=== PATIENT | female | born 1945 | race Caucasian/White ===

== ENCOUNTER → 2016-09-24 | Outpatient (CLI) | payer BC, MEDICARE ==
[2016-09-24 10:33] LABS: Basophils # (A) 0.1 k/uL (0-0.2); Basophils % (A) 1 %; CH 30.6; CHCM 34.4; Eosinophils # (A) 0.1 k/uL (0-0.7); Eosinophils % (A) 2 %; HCT 44.8 % (34.0-46.0); HDW 2.76; HGB 15.3 gm/dL (11.4-16.0); Luc # (Auto) 0.24; Luc % (Auto) 4; Lymphocytes % (A) 30 %; MCH 30.5 pg (25.0-35.0); MCHC 34.1 g/dL (31.0-37.0); MCV 89.4 fL (80.0-100.0); Mean Platelet Volume 9.3; Monocytes # (A) 0.3 k/uL (0-1.0); Monocytes % (A) 4 %; Neutrophils % (A) 60 %; RBC 5.01 m/uL (3.80-5.40); RDW 12.8 % (11.5-15.5); WBC 6.8 k/uL (3.8-10.6); WBC (Perox) 6.98
[2016-09-24 10:47] LABS: ALT 29 U/L (9-52); AST 20 U/L (14-36); Alkaline Phosphatase 61 U/L (38-126); Anion Gap 9 mmol/L; Blood Urea Nitrogen 14 mg/dL (7-17); Calcium 9.5 mg/dL (8.4-10.2); Carbon Dioxide 29 mmol/L (22-30); Chloride 103 mmol/L (98-107); Cholesterol 153 mg/dL (<200); Glucose 136 mg/dL (74-99); HDL Cholesterol 42 mg/dL (40-60); Non-African American GFR(MDRD) >60 (>60 ml/min/1.73 sqM); Potassium 4.6 mmol/L (3.5-5.1); Sodium 141 mmol/L (137-145); Total Bilirubin 0.7 mg/dL (0.2-1.3); Total Protein 6.7 g/dL (6.3-8.2); Triglycerides 158 mg/dL (<150)
== END | disposition home or self-care (01) ==
LOC: LABWHC1 09:59
PROVIDERS: ATTEND Internal Medicine
DX: E11.65 Type 2 diabetes mellitus with hyperglycemia (principal); E78.2 Mixed hyperlipidemia; I10 Essential (primary) hypertension
CPT/HCPCS: 36415; 80053; 80061; 85025

== ENCOUNTER → 2016-12-17 | Outpatient (CLI) | payer MEDICARE ==
[2016-12-17 11:03] LABS: Anion Gap 9 mmol/L; Blood Urea Nitrogen 15 mg/dL (7-17); Calcium 9.2 mg/dL (8.4-10.2); Carbon Dioxide 24 mmol/L (22-30); Chloride 105 mmol/L (98-107); Glucose 151 mg/dL (74-99); Non-African American GFR(MDRD) >60 (>60 ml/min/1.73 sqM); Potassium 4.5 mmol/L (3.5-5.1); Sodium 138 mmol/L (137-145)
[2016-12-17 11:44] LABS: Hemoglobin A1C 6.9 % (4.2-6.1)
== END | disposition home or self-care (01) ==
LOC: LABWHC1 09:32
PROVIDERS: ATTEND Internal Medicine
DX: E11.65 Type 2 diabetes mellitus with hyperglycemia (principal)
CPT/HCPCS: 36415; 80048; 82043; 83036

== ENCOUNTER → 2017-04-16 | Outpatient (CLI) | payer MEDICARE ==
[2017-04-16 11:03] LABS: Anion Gap 10 mmol/L; Blood Urea Nitrogen 16 mg/dL (7-17); Calcium 9.3 mg/dL (8.4-10.2); Carbon Dioxide 23 mmol/L (22-30); Chloride 105 mmol/L (98-107); Glucose 143 mg/dL (74-99); Non-African American GFR(MDRD) >60 (>60 ml/min/1.73 sqM); Potassium 4.9 mmol/L (3.5-5.1); Sodium 138 mmol/L (137-145)
== END | disposition home or self-care (01) ==
LOC: LABWHC1 10:02
PROVIDERS: ATTEND Internal Medicine
DX: E11.9 Type 2 diabetes mellitus without complications (principal)
CPT/HCPCS: 36415; 80048; 83036

== ENCOUNTER → 2017-09-15 | Outpatient (CLI) | payer MEDICARE ==
[2017-09-15 10:10] LABS: Anion Gap 9 mmol/L; Blood Urea Nitrogen 16 mg/dL (7-17); Calcium 9.2 mg/dL (8.4-10.2); Carbon Dioxide 30 mmol/L (22-30); Chloride 102 mmol/L (98-107); Glucose 155 mg/dL (74-99); Potassium 4.4 mmol/L (3.5-5.1); Sodium 141 mmol/L (137-145)
[2017-09-15 21:08] LABS: Hemoglobin A1C 7.1 % (4.0-6.0)
== END | disposition home or self-care (01) ==
LOC: LABWHC1 09:15
PROVIDERS: ATTEND Internal Medicine
DX: E11.65 Type 2 diabetes mellitus with hyperglycemia (principal)
CPT/HCPCS: 36415; 80048; 83036

== ENCOUNTER 2021-12-22 14:30 | Observation (INO) | payer MEDICARE ==
[2021-12-22 15:00] LABS: Basophils % (A) 1 %; Eosinophils # (A) 0.1 k/uL (0-0.7); Eosinophils % (A) 1 %; HCT 42.4 % (34.0-46.0); HGB 14.2 gm/dL (11.4-16.0); Lymphocytes # (A) 1.3 k/uL (1.0-4.8); Lymphocytes % (A) 15 %; MCH 29.9 pg (25.0-35.0); MCHC 33.6 g/dL (31.0-37.0); MCV 89.1 fL (80.0-100.0); Mean Platelet Volume 8.8; Monocytes # (A) 0.4 k/uL (0-1.0); Monocytes % (A) 5 %; Neutrophils # (A) 6.6 k/uL (1.3-7.7); Neutrophils % (A) 78 %; Platelet Count 189 k/uL (150-450); RBC 4.76 m/uL (3.80-5.40); RDW 13.4 % (11.5-15.5); WBC 8.5 k/uL (3.8-10.6)
[2021-12-22 15:12] LABS: ALT 69 U/L (4-34); AST 171 U/L (14-36); African American GFR (CKD) >90 (>60 ml/min/1.73 sqM); Albumin 3.8 g/dL (3.5-5.0); Alkaline Phosphatase 84 U/L (38-126); Anion Gap 6 mmol/L; Blood Urea Nitrogen 19 mg/dL (7-17); Calcium 8.8 mg/dL (8.4-10.2); Carbon Dioxide 27 mmol/L (22-30); Chloride 104 mmol/L (98-107); Glucose 158 mg/dL (74-99); Magnesium 1.8 mg/dL (1.6-2.3); Non-African American GFR(CKD) 88 (>60 ml/min/1.73 sqM); Potassium 4.1 mmol/L (3.5-5.1); Sodium 137 mmol/L (137-145); Total Bilirubin 0.5 mg/dL (0.2-1.3); Total Protein 6.2 g/dL (6.3-8.2)
--- NOTE | 2021-12-22 15:12 | XR ---
EXAMINATION TYPE: XR chest 2V DATE OF EXAM: 12/22/2021 COMPARISON: NONE HISTORY: Chest TECHNIQUE: 2 views FINDINGS: Heart is normal. The lungs are clear of consolidation. There are no hilar masses. Thoracic aorta is atheromatous. There are chest leads. Bony thorax is intact. IMPRESSION: No active cardiopulmonary disease.
[2021-12-22 15:31] LABS: INR 0.9 (<1.2); Prothrombin Time 10.4 sec (9.0-12.0)
[2021-12-22 15:39] LABS: Lipase 5369 U/L (23-300)
--- NOTE | 2021-12-22 15:55 | ED ---
Chest Pain HPI - General Chief Complaint: Chest Pain Stated Complaint: Chest pain Time Seen by Provider: 12/22/21 14:35 Source: patient, EMS, RN notes reviewed Mode of arrival: EMS Limitations: no limitations - History of Present Illness Initial Comments: This a 76-year-old female presents emergency department with chief complaint of epigastric, chest discomfort. Patient states this started a few hours prior arrival. Patient states she became very sweaty, uncomfortable feeling. Patient states initially that it was just GI upset, reflux seemed to progress. She states she's had bouts of this in the past with this ecchymosis severe. She takes daily for dose aspirin in which she has taken today. No prior cardiac disease she does admit that she is a daily smoker him a history of hypertension, diabetes and hyperlipidemia. Patient states she is on metformin 2000 mg daily, fosinopril in which she's had recent medication increases. Patient states she is also supposed be on Lipitor. Patient denies any vomiting diarrhea constipation. Patient denies being alcohol user. Patient offers no other associated complaints. - Related Data Home Medications Medication Instructions Recorded Confirmed Aspirin 325 mg PO TID 01/20/14 01/24/14 Simvastatin [Zocor] 20 mg PO HS 01/20/14 01/24/14 metFORMIN HCL [Glucophage] 1,000 mg PO DAILY 01/20/14 01/24/14 Allergies Allergy/AdvReac Type Severity Reaction Status Date / Time procaine HCl [From Novocain] Allergy Severe Anaphylaxis Verified 01/20/14 09:41 pseudoephedrine HCl Allergy Severe Rapid Verified 01/20/14 09:41 [From Sudafed] Heart Rate Review of Systems ROS Statement: Those systems with pertinent positive or pertinent negative responses have been documented in the HPI. ROS Other: All systems not noted in ROS Statement are negative. EKG Findings - EKG Comments: EKG Findings:: EKG performed at 14:14 sinus rhythm with 81 W[place] 180 QRS 77 QT/QTC 359/397 Past Medical History Past Medical History: Diabetes Mellitus, Hyperlipidemia, Skin Disorder Additional Past Medical History / Comment(s): arthritis, chronic cough, keratosis, fuch dystrophy rt eye History of Any Multi-Drug Resistant Organisms: None Reported Past Surgical History: Tonsillectomy Additional Past Surgical History / Comment(s): cold knife conization Past Anesthesia/Blood Transfusion Reactions: Family History of Problems w/ Anesthesia Additional Past Anesthesia/Blood Transfusion Reaction / Comment(s): woke up in dentist office in "trendelenburg position", allergy reaction to novocaine and all the "rochelle" local anesthesia Past Psychological History: No Psychological Hx Reported Smoking Status: Current every day smoker Past Alcohol Use History: None Reported Past Drug Use History: None Reported - Past Family History Father Family Medical History: Cancer Sister(s) Family Medical History: Cancer General Exam Limitations: no limitations General appearance: alert, in no apparent distress Head exam: Present: atraumatic, normocephalic, normal inspection Eye exam: Present: normal appearance, PERRL, EOMI. Absent: scleral icterus, conjunctival injection, periorbital swelling ENT exam: Present: normal exam, normal oropharynx, mucous membranes moist Neck exam: Present: normal inspection, full ROM. Absent: tenderness, meningismus, lymphadenopathy Respiratory exam: Present: normal lung sounds bilaterally. Absent: respiratory distress, wheezes, rales, rhonchi, stridor Cardiovascular Exam: Present: regular rate, normal rhythm, normal heart sounds. Absent: systolic murmur, diastolic murmur, rubs, gallop, clicks GI/Abdominal exam: Present: soft, tenderness (Mild epigastric), normal bowel sounds. Absent: distended, guarding, rebound, rigid Back exam: Absent: CVA tenderness (R), CVA tenderness (L) Neurological exam: Present: alert Skin exam: Present: warm, dry, intact, normal color. Absent: rash Course Vital Signs 12/22/21 12/22/21 14:35 14:46 Temperature 98.1 F Pulse Rate 85 Pulse Rate [ 83 Guardian Ad Litem ] Respiratory 16 Rate Blood Pressure 163/81 O2 Sat by Pulse 96 Oximetry Chest Pain [facility] 68-year-old female presented for epigastric chest pain. Patient's initial workup reveals evidence of acute pancreatitis with elevated lipase over 5000. CT was obtained as patient has no history of pancreatitis is not alcohol abuser. CT does not show any evidence of pancreatitis, possibly mildly thickened gallbladder wall. Patient will be obtained. Patient will be admitted for acute pancreatitis any fluid hydration, pain control and further evaluation. Disposition Clinical Impression: Acute pancreatitis, Chest pain Disposition: ADMITTED IP TO THIS HOSP Condition: Fair Referrals: Hector Hastings MD [Primary Care Provider] - 1-2 days Time of Disposition: 16:21
--- NOTE | 2021-12-22 16:17 | CT ---
EXAMINATION TYPE: CT abdomen pelvis wo con DATE OF EXAM: 12/22/2021 COMPARISON: None HISTORY: epigastric pain. poss pancreatitis CT DLP: 485.9 mGycm Automated exposure control for dose reduction was used. Images obtained from the diaphragm to the floor the pelvis with no contrast. The lung bases are clear. No pleural effusion. Heart size is normal. No pericardial effusion. Liver spleen stomach pancreas appear intact. There is gallbladder wall thickening. Gallbladder somewh at contracted. The bile ducts are not dilated. There is no adrenal mass. Kidneys have fairly normal size. No hydronephrosis. Ureters are not dilated . There is no retroperitoneal adenopathy. Bladder distends smoothly. There is no inguinal hernia. There is no mesenteric edema. No ascites or free air. No sign of a bowel obstruction. Abdominal aorta measures up to 2.8 cm. Lumbar vertebra abnormal alignment. Disc spaces are fairly nor mal. No compression fracture. Bony pelvis is intact. The hip joints are intact. Sacroiliac joints are intact. IMPRESSION: Atherosclerotic vascular disease. Contracted gallbladder with mild wall thickening that could be chol ecystitis. No dilated ducts. No definite evidence of pancreatitis.
[2021-12-22] MEDS ORDERED: NITROGLYCERIN SL TABS 0.4 MG TAB SUBLINGUAL PRN (16:23)
[2021-12-22] MEDS ORDERED: HYDROmorphone 0.5 MG/0.5 ML SYRINGE IVP PRN (16:26)
[2021-12-22] MEDS ORDERED: ONDANSETRON 4 MG/2 ML VIAL IVP PRN (16:26)
--- NOTE | 2021-12-22 17:12 | P.HPIM ---
History of Present Illness H&P Date: 12/22/21 76-year-old female presents emergency department with chief complaint of epigastric, chest discomfort. Patient states this started a few hours prior arrival. Patient states she became very sweaty, uncomfortable feeling. Patient states initially that it was just GI upset, reflux seemed to progress. She states she's had bouts of this in the past with this ecchymosis severe. She takes daily for dose aspirin in which she has taken today. No prior cardiac disease she does admit that she is a daily smoker him a history of hypertension, diabetes and hyperlipidemia. Patient states she is on metformin 2000 mg daily, fosinopril in which she's had recent medication increases. Patient states she is also supposed be on Lipitor. Patient denies any vomiting diarrhea constipation. Patient denies being alcohol user. Patient offers no other associated complaints. Patient's initial workup reveals evidence of acute pancreatitis with elevated lipase over 5000. CT was obtained as patient has no history of pancreatitis is not alcohol abuser. CT does not show any evidence of pancreatitis, possibly mildly thickened gallbladder wall. atient will be admitted for acute pancreatitis any fluid hydration, pain control and further evaluation. Acute pancreatitis unclear etiology Gallbladder ultrasound negative patient denies any history of alcohol intake We'll check fasting lipid panel, rule out hypertriglyceridemia Check COVID-19 swab Continue bowel rest with nothing by mouth IV fluid pain management and supportive care with antirheumatic medication Gastroenterology consulted for evaluation Chest pain likely atypical in the setting of above Doubt cardiac etiology Continue to trend troponin We'll check echocardiogram Continue cardiac telemetry Hypertension Uncontrolled, patient does not take any antihypertensive medication at home Currently when necessary hydralazine on discharge patient can be discharged on s cheduled medication Diabetes mellitus Check hemoglobin A1c Hold oral hypoglycemic Continue insulin sliding scale Hyperlipidemia Patient at home on Zocor 5 check fasting lipid panel History of smoking Smoking cessation advice, counseling DVT prophylaxis subcut heparin CODE STATUS: Full code Discharge plan: Back to home versus rehab pending hospital course and clinical improvement Review of Systems 14 point review of system was done in detail and is negative except as above in HPI. Past Medical History Past Medical History: Diabetes Mellitus, Hyperlipidemia, Skin Disorder Additional Past Medical History / Comment(s): arthritis, chronic cough, keratosis, fuch dystrophy rt eye History of Any Multi-Drug Resistant Organisms: None Reported Past Surgical History: Tonsillectomy Additional Past Surgical History / Comment(s): cold knife conization Past Anesthesia/Blood Transfusion Reactions: Family History of Problems w/ Anesthesia Additional Past Anesthesia/Blood Transfusion Reaction / Comment(s): woke up in dentist office in "trendelenburg position", allergy reaction to novocaine and all the "rochelle" local anesthesia Past Psychological History: No Psychological Hx Reported Smoking Status: Current every day smoker Past Alcohol Use History: None Reported Past Drug Use History: None Reported - Past Family History Father Family Medical History: Cancer Sister(s) Family Medical History: Cancer Medications and Allergies Home Medications Medication Instructions Recorded Confirmed Type Aspirin 325 mg PO TID 01/20/14 01/24/14 History Simvastatin [Zocor] 20 mg PO HS 01/20/14 01/24/14 History metFORMIN HCL [Glucophage] 1,000 mg PO DAILY 01/20/14 01/24/14 History Allergies Allergy/AdvReac Type Severity Reaction Status Date / Time procaine HCl [From Novocain] Allergy Severe Anaphylaxis Verified 01/20/14 09:41 pseudoephedrine HCl Allergy Severe Rapid Verified 01/20/14 09:41 [From Sudafed] Heart Rate Physical Exam Vitals: Vital Signs Temp Pulse Pulse Resp BP Pulse Ox 12/22/21 14:46 83 12/22/21 14:35 98.1 F 85 16 163/81 96 Intake and Output 12/22/21 12/22/21 12/22/21 06:59 14:59 22:59 Other: Weight 68.946 kg General: non toxic, no acute distress, alert oriented to time place and person Head: atraumatic, normocephalic, symmetric Eyes: no lid lesion], anicteric sclera Mouth: no lip lesion, mucus membranes moist Cardiovascular: S1S2 reg rate and rhythm, no murmur, no gallop Lungs: Bilateral equal air entry, no wheezing no rhonchi no crackles. Abdominal: soft, nontender to palpation, no guarding, no appreciable organomegaly Ext: no gross muscle atrophy, no edema extremities warm to suppose a positive Neuro: Alert oriented to time place and person, exam grossly nonfocal Psych: Mood and affect appropriate, patient not so certain Skin exam: No rashes no jaundice. Results CBC & Chem 7: 12/22/21 14:50 12/22/21 14:50 Labs: Abnormal Lab Results - Last 24 Hours (Table) 12/22/21 Range/Units 14:50 BUN 19 H (7-17) mg/dL Glucose 158 H (74-99) mg/dL AST 171 H (14-36) U/L ALT 69 H (4-34) U/L Total Protein 6.2 L (6.3-8.2) g/dL Lipase 5369 H (23-300) U/L
--- NOTE | 2021-12-22 17:25 | US ---
EXAMINATION TYPE: US gallbladder DATE OF EXAM: 12/22/2021 COMPARISON: NONE CLINICAL HISTORY: pain. chest pain, possible pancreatitis, contracted GB on CT EXAM MEASUREMENTS: Liver Length: 16.9 cm Gallbladder Wall: 0.4 cm CBD: 0.6 cm Right Kidney: 10.7 x 4.6 x 4.4 cm Pancreas: wnl Liver: wnl Gallbladder: thickened wall and appears contracted, NPO 4.5 hours Evidence for sonographic Barton's sign: no CBD: wnl Right Kidney: wnl IMPRESSION: No gallstones. Mild gallbladder wall thickening could be minimal cholecystitis. No dilate d ducts.
[2021-12-22] MEDS ORDERED: cefTRIAXone IN SWFI 1,000 MG/10 ML SYRINGE IVP STA (18:46)
[2021-12-22] MEDS ORDERED: ACETAMINOPHEN TAB 500 MG TAB PO STA (18:46)
[2021-12-22 19:07] LABS: Glucose,Whole Blood 136 mg/dL (75-99)
[2021-12-22] MEDS: SODIUM CHLORIDE 0.9% 1,000 ML IV SCH (19:22)
[2021-12-22 20:36] LABS: Appearance,Urine Clear (Clear); Bilirubin,Urine Negative (Negative); Blood,Urine Negative (Negative); Color,Urine Light Yellow; Glucose,Urine (UA) Negative (Negative); Ketones,Urine Negative (Negative); Leukocyte Esterase,Urine Negative (Negative); Nitrite,Urine Negative (Negative); PH, Urine 5.5 (5.0-8.0); Protein,Urine Negative (Negative); Specific Gravity,Urine 1.007 (1.001-1.035); Urobilinogen,Urine <2.0 mg/dL (<2.0)
[2021-12-22] MEDS: PIPERACILLIN-TAZOBACTAM 3.375 GM in SODIUM CHLORIDE 0.9% 100 ML IVPB SCH (20:57)
[2021-12-22] MEDS ORDERED: SODIUM CHLORIDE 0.9% 1,000 ML IV ONE (20:58)
[2021-12-23 05:07] LABS: Basophils % (A) 0 %; Eosinophils % (A) 0 %; HCT 36.9 % (34.0-46.0); HGB 12.1 gm/dL (11.4-16.0); Lymphocytes # (A) 0.5 k/uL (1.0-4.8); Lymphocytes % (A) 4 %; MCH 29.2 pg (25.0-35.0); MCHC 32.7 g/dL (31.0-37.0); MCV 89.2 fL (80.0-100.0); Mean Platelet Volume 8.9; Monocytes # (A) 0.3 k/uL (0-1.0); Monocytes % (A) 2 %; Neutrophils # (A) 11.9 k/uL (1.3-7.7); Neutrophils % (A) 93 %; Platelet Count 161 k/uL (150-450); RBC 4.14 m/uL (3.80-5.40); RDW 13.6 % (11.5-15.5); WBC 12.8 k/uL (3.8-10.6)
[2021-12-23] MEDS: PIPERACILLIN-TAZOBACTAM 3.375 GM in SODIUM CHLORIDE 0.9% 100 ML IVPB SCH ×3 (05:25→20:22)
[2021-12-23 05:47] LABS: ALT 329 U/L (4-34); AST 367 U/L (14-36); African American GFR (CKD) >90 (>60 ml/min/1.73 sqM); Albumin 2.8 g/dL (3.5-5.0); Alkaline Phosphatase 72 U/L (38-126); Anion Gap 4 mmol/L; Blood Urea Nitrogen 15 mg/dL (7-17); Calcium 7.7 mg/dL (8.4-10.2); Carbon Dioxide 23 mmol/L (22-30); Chloride 107 mmol/L (98-107); Glucose 155 mg/dL (74-99); Non-African American GFR(CKD) 81 (>60 ml/min/1.73 sqM); Potassium 3.4 mmol/L (3.5-5.1); Sodium 134 mmol/L (137-145); Total Bilirubin 1.2 mg/dL (0.2-1.3); Total Protein 4.8 g/dL (6.3-8.2)
[2021-12-23 10:59] LABS: Chol/HDL Ratio 4.74 Ratio; LDL Cholesterol,Calculated 123.7 mg/dL (0.0-131.0); VLDL Calculation 18.34 mg/dL (5.00-40.00)
--- NOTE | 2021-12-23 12:30 | P.PN ---
Subjective Patient was examined at bedside not complaining of any new symptomatology. States that her abdominal pain is slightly improved denies any nausea or vomiting. Family present at bedside all questions have been answered. Patient denies any chest pain, shortness of breath or palpitations. Objective - Vital Signs Vital signs: Vital Signs Temp 98.1 F 12/23/21 01:00 Pulse 80 12/23/21 09:23 Resp 18 12/23/21 09:23 BP 103/56 12/23/21 09:23 Pulse Ox 94 L 12/23/21 09:23 FiO2 Intake & Output 12/22/21 12/23/21 12/23/21 18:59 06:59 18:59 Weight 68.946 kg 68.946 kg - Exam General: non toxic, no acute distress, alert oriented to time place and person Head: atraumatic, normocephalic, symmetric Eyes: no lid lesion], anicteric sclera Mouth: no lip lesion, mucus membranes moist Cardiovascular: S1S2 reg rate and rhythm, no murmur, no gallop Lungs: Bilateral equal air entry, no wheezing no rhonchi no crackles. Abdominal: soft, nontender to palpation, no guarding, no appreciable organomegaly Ext: no gross muscle atrophy, no edema extremities warm to suppose a positive Neuro: Alert oriented to time place and person, exam grossly nonfocal Psych: Mood and affect appropriate, patient not so certain Skin exam: No rashes no jaundice. - Labs CBC & Chem 7: 12/23/21 04:32 12/23/21 04:32 Labs: Abnormal Lab Results - Last 24 Hours (Table) 12/22/21 12/22/21 12/22/21 Range/Units 14:50 14:50 19:05 WBC (3.8-10.6) k/uL Neutrophils # (1.3-7.7) k/uL Lymphocytes # (1.0-4.8) k/uL Sodium (137-145) mmol/L Potassium (3.5-5.1) mmol/L BUN 19 H (7-17) mg/dL Glucose 158 H (74-99) mg/dL POC Glucose (mg/dL) 136 H (75-99) mg/dL Hemoglobin A1c 7.4 H (0.0-6.0) % Plasma Lactic Acid Bradley (0.7-2.0) mmol/L Calcium (8.4-10.2) mg/dL AST 171 H (14-36) U/L ALT 69 H (4-34) U/L Total Protein 6.2 L (6.3-8.2) g/dL Albumin (3.5-5.0) g/dL HDL Cholesterol (40.00-60.00) mg/dL Lipase 5369 H (23-300) U/L 12/22/21 12/23/21 12/23/21 Range/Units 20:08 04:32 04:32 WBC 12.8 H (3.8-10.6) k/uL Neutrophils # 11.9 H (1.3-7.7) k/uL Lymphocytes # 0.5 L (1.0-4.8) k/uL Sodium 134 L (137-145) mmol/L Potassium 3.4 L (3.5-5.1) mmol/L BUN (7-17) mg/dL Glucose 155 H (74-99) mg/dL POC Glucose (mg/dL) (75-99) mg/dL Hemoglobin A1c (0.0-6.0) % Plasma Lactic Acid Bradley 3.3 H* (0.7-2.0) mmol/L Calcium 7.7 L (8.4-10.2) mg/dL AST 367 H (14-36) U/L ALT 329 H (4-34) U/L Total Protein 4.8 L (6.3-8.2) g/dL Albumin 2.8 L (3.5-5.0) g/dL HDL Cholesterol 38.00 L (40.00-60.00) mg/dL Lipase (23-300) U/L Assessment and Plan Assessment: Acute pancreatitis unclear etiology Gallbladder ultrasound negative patient denies any history of alcohol intake Reviewed lipid panel, Check COVID-19 swab Continue bowel rest with nothing by mouth IV fluid pain management and supportive care with antirheumatic medication Gastroenterology consulted for evaluation IV hydration Chest pain likely atypical in the setting of above Doubt cardiac etiology Continue to trend troponin We'll check echocardiogram Continue cardiac telemetry Hypertension Uncontrolled, patient does not take any antihypertensive medication at home Currently when necessary hydralazine on discharge patient can be discharged on scheduled medication Diabetes mellitus Check hemoglobin A1c - 7.4 Hold oral hypoglycemic Continue insulin sliding scale Hyperlipidemia Patient at home on Zocor History of smoking Smoking cessation advice, counseling DVT prophylaxis subcut heparin CODE STATUS: Full code Discharge plan: Back to home versus rehab pending hospital course and clinical improvement
[2021-12-23 12:51] LABS: Glucose,Whole Blood 123 mg/dL (75-99)
[2021-12-23] MEDS: SODIUM CHLORIDE 0.9% 1,000 ML IV SCH ×6 (12:54→21:09)
--- NOTE | 2021-12-23 16:02 | P.CONS ---
History of Present Illness - Reason for Consult Consult date: 12/23/21 Pancreatitis Requesting physician: Jono Carpenter - Chief Complaint Chest pain - History of Present Illness This is a pleasant 76-year-old female who presented to the emergency department by EMS with complaints of chest pain. States that she began having chest pain yesterday afternoon, lasting about 30 minutes. Her family called EMS and they brought her to the emergency department. She has a past medical history diabetes mellitus, hypertension, hyperlipidemia and arthritis. She was noted to have elevated AST and ALTs as well as lipase on admission. She underwent CT of the abdomen and pelvis that reported a contracted gallbladder with mild wall thickening could be cholecystitis. With no dilated ducts and no definite evidence of pancreatitis. Abdominal ultrasound also obtained with findings of no gallstones. Mild gallbladder wall thickening could be minimal cholecystitis. With no dilated ducts. Gastroenterology was consulted for acute pancreatitis. Patient denies any abdominal pain at this time. No chest pain or epigastric pain. She denies any previous history of pancreatitis. Denies any history of alcoholism or problems with her gallbladder. No recent new medications. Admitting labs WBC 8.5 hemoglobin 14 platelet count 189,000 sodium 137 potassium 4.1 BUN 19 creatinine 0.6, total bilirubin 0.5 AST 171 AST 69, lipase 5369 Review of Systems REVIEW OF SYSTEMS: CARDIOPULMONARY: No chest pain or shortness of breath. Gastrointestinal: Epigastric pain, now resolved. No nausea or vomiting. No hematemesis, coffee-ground emesis. No rectal bleeding, or melena. GENITOURINARY: No dysuria or hematuria. MUSCULOSKELETAL: Reports normal range of motion., Joint pain. SKIN: No rashes. No jaundice. ENDOCRINE: No chills, fevers. No excessive weight gain or loss. No polydipsia or polyuria. PSYCHIATRIC: Unremarkable. NEUROLOGY: No change in mental status. Denies dizziness, headache. ENT: Vision unremarkable. CONSTITUTIONAL: No recent weight loss. No fever, chills, night sweats. Past Medical History Past Medical History: Diabetes Mellitus, Hyperlipidemia, Skin Disorder Additional Past Medical History / Comment(s): arthritis, chronic cough, keratosis, fuch dystrophy rt eye History of Any Multi-Drug Resistant Organisms: None Reported Past Surgical History: Tonsillectomy Additional Past Surgical History / Comment(s): cold knife conization Past Anesthesia/Blood Transfusion Reactions: Family History of Problems w/ Anesthesia Additional Past Anesthesia/Blood Transfusion Reaction / Comm: woke up in dentist office in "trendelenburg position", allergy reaction to novocaine and all the "rochelle" local anesthesia Past Psychological History: No Psychological Hx Reported Smoking Status: Current every day smoker Past Alcohol Use History: None Reported Past Drug Use History: None Reported - Past Family History Father Family Medical History: Cancer Sister(s) Family Medical History: Cancer Medications and Allergies Home Medications Medication Instructions Recorded Confirmed Type Aspirin 325 mg PO DAILY 01/20/14 12/23/21 History metFORMIN HCL [Glucophage] 1,000 mg PO BID 01/20/14 12/23/21 History Atorvastatin Calcium [Lipitor] 40 mg PO HS 12/23/21 12/23/21 History Cholecalciferol (Vitamin D3) 75 mcg PO DAILY 12/23/21 12/23/21 History [Vitamin D3 (3000 Iu)] Multivitamins, Thera [Multivitamin 1 tab PO DAILY 12/23/21 12/23/21 History (formulary)] lisinopriL [Zestril] 10 mg PO BID 12/23/21 12/23/21 History Allergies Allergy/AdvReac Type Severity Reaction Status Date / Time procaine HCl [From Novocain] Allergy Severe Anaphylaxis Verified 12/23/21 07:39 pseudoephedrine HCl AdvReac Severe Rapid Verified 12/23/21 07:39 [From Sudafed] Heart Rate Physical Exam Vitals: Vital Signs Temp Pulse Pulse Resp BP Pulse Ox 12/23/21 09:23 80 18 103/56 94 L 12/23/21 04:00 92 97 12/23/21 03:00 92 93/50 97 12/23/21 01:00 98.1 F 92 90/51 97 12/22/21 22:52 99.8 F H 102 H 16 142/76 96 12/22/21 21:43 99.0 F 12/22/21 21:24 100.9 F H 12/22/21 20:24 102.1 F H 110 H 16 135/50 97 12/22/21 19:52 101.0 F H 120 H 16 139/60 97 12/22/21 18:38 100.9 F H 130 H 18 172/91 12/22/21 14:46 83 12/22/21 14:35 98.1 F 85 16 163/81 96 General appearance: The patient is alert, oriented, appears in no acute distress. HET: Head is normocephalic and atraumatic. Conjunctiva pink. Sclera anicteric. Neck: Supple without lymphadenopathy. Trachea midline. Heart: S1 S2. Regular rate and rhythm. Lungs: Clear to auscultation. Abdomen: Soft, mild right upper quadrant tenderness, nondistended with bowel sounds. No guarding or rigidity. Skin: No rashes. No jaundice. Extremities: Normal skin color and turgor. No pedal edema. Neurological: No focal deficits. Alert and oriented x3. Results CBC & Chem 7: 12/23/21 04:32 12/23/21 04:32 Labs: Abnormal Lab Results - Last 24 Hours (Table) 12/22/21 12/22/21 12/22/21 Range/Units 14:50 14:50 19:05 WBC (3.8-10.6) k/uL Neutrophils # (1.3-7.7) k/uL Lymphocytes # (1.0-4.8) k/uL Sodium (137-145) mmol/L Potassium (3.5-5.1) mmol/L BUN 19 H (7-17) mg/dL Glucose 158 H (74-99) mg/dL POC Glucose (mg/dL) 136 H (75-99) mg/dL Hemoglobin A1c 7.4 H (0.0-6.0) % Plasma Lactic Acid Bradley (0.7-2.0) mmol/L Calcium (8.4-10.2) mg/dL AST 171 H (14-36) U/L ALT 69 H (4-34) U/L Total Protein 6.2 L (6.3-8.2) g/dL Albumin (3.5-5.0) g/dL Lipase 5369 H (23-300) U/L 12/22/21 12/23/21 12/23/21 Range/Units 20:08 04:32 04:32 WBC 12.8 H (3.8-10.6) k/uL Neutrophils # 11.9 H (1.3-7.7) k/uL Lymphocytes # 0.5 L (1.0-4.8) k/uL Sodium 134 L (137-145) mmol/L Potassium 3.4 L (3.5-5.1) mmol/L BUN (7-17) mg/dL Glucose 155 H (74-99) mg/dL POC Glucose (mg/dL) (75-99) mg/dL Hemoglobin A1c (0.0-6.0) % Plasma Lactic Acid Bradley 3.3 H* (0.7-2.0) mmol/L Calcium 7.7 L (8.4-10.2) mg/dL AST 367 H (14-36) U/L ALT 329 H (4-34) U/L Total Protein 4.8 L (6.3-8.2) g/dL Albumin 2.8 L (3.5-5.0) g/dL Lipase (23-300) U/L Comments: CT of the abdomen and pelvis that reported a contracted gallbladder with mild wall thickening could be cholecystitis. With no dilated ducts and no definite evidence of pancreatitis. Gallbladder ultrasound also obtained with findings of no gallstones. Mild gallbladder wall thickening could be minimal cholecystitis. With no dilated ducts. Assessment and Plan (1) Acute pancreatitis Narrative/Plan: 76-year-old female with no prior history of gallbladder disease or pancreatitis comes in to the emergency department with complaints of chest pain/epigastric pain. She was noted to have elevated lipase as well as AST and ALTs. CT of the abdomen and pelvis show no gallstones, no evidence of pancreatitis, however gallbladder wall thickening possible cholecystitis. Repeat labs today showed an elevation in her WBC to 12.8, AST increased from 171-367, ALTs from 69-329, Total bilirubin 1.2, lipase improved from 5369 to 238. Patient denies any p revious history of liver disease, no history of alcohol use. Unclear etiology at this time, a CT of abdomen and pelvis as well as gallbladder ultrasound suggesting mild thickening of the gallbladder, possible cholecystitis. Gen. surgery consulted. Current Visit: Yes Status: Acute Code(s): K85.90 - ACUTE PANCREATITIS W ITHOUT NECROSIS OR INFECTION, UNSP SNOMED Code(s): 784004688 Plan: 1. Continue symptomatic and supportive care 2. Patient may have clear liquid diet, consistent carbohydrate 3. Repeat CBC, CMP in the morning 4. Gen. surgery consulted for possible cholecystitis, patient requesting Dr. Browne 5. Further recommendations forthcoming based on clinical course Thank you for this consultation, we will continue to follow. Dr. Sander Hall I agree with the dictator's note, documented as a scribe by Yolanda Cyr.
--- NOTE | 2021-12-23 16:05 | P.GSCN ---
History of Present Illness Consult date: 12/23/21 Reason for Consult: Pancreatitis History of present illness: 76-year-old female came to the hospital with acute onset chest pain yesterday. This was nonradiating. Patient was concerned it was a cardiac event. Patient used to work at the hospital. Patient says she has had mild symptoms like this in the past. Pain resolved after admission however patient did have episodes last night of fevers, diaphoresis, tachypnea, and mental status changes. Labs from yesterday and today demonstrate pancreatitis that seems to have improved from a biochemical standpoint. Liver enzymes were elevated yesterday and are slightly increased again today. CAT scan reviewed which shows a contracted gallbladder with gallbladder wall thickening. Ultrasound and CAT scan did not demonstrate gallstones. On the CAT scan there is a calcification in the medial aspect of the duodenal wall that could represent choledocholithiasis. GI is already evaluated this patient. No prior surgeries. No weight loss. Some fatigue over the last 4-6 weeks however. Patient states she has not noticed any color changes to her urine skin or stool. Review of Systems The patient denies any acute changes in vision or hearing, no dysphagia or odynophagia, no chest pain or shortness of breath, no dysuria or hematuria, no headache, no runny nose, no rectal bleeding or melena, no unexplained weight loss Past Medical History Past Medical History: Diabetes Mellitus, Hyperlipidemia, Skin Disorder Additional Past Medical History / Comment(s): arthritis, chronic cough, keratos is, fuch dystrophy rt eye History of Any Multi-Drug Resistant Organisms: None Reported Past Surgical History: Tonsillectomy Additional Past Surgical History / Comment(s): cold knife conization Past Anesthesia/Blood Transfusion Reactions: Family History of Problems w/ Anesthesia Additional Past Anesthesia/Blood Transfusion Reaction / Comm: woke up in dentist office in "trendelenburg position", allergy reaction to novocaine and all the "rochelle" local anesthesia Past Psychological History: No Psychological Hx Reported Smoking Status: Current every day smoker Past Alcohol Use History: None Reported Past Drug Use History: None Reported - Past Family History Father Family Medical History: Cancer Sister(s) Family Medical History: Cancer Medications and Allergies Home Medications Medication Instructions Recorded Confirmed Type Aspirin 325 mg PO DAILY 01/20/14 12/23/21 History metFORMIN HCL [Glucophage] 1,000 mg PO BID 01/20/14 12/23/21 History Atorvastatin Calcium [Lipitor] 40 mg PO HS 12/23/21 12/23/21 History Cholecalciferol (Vitamin D3) 75 mcg PO DAILY 12/23/21 12/23/21 History [Vitamin D3 (3000 Iu)] Multivitamins, Thera [Multivitamin 1 tab PO DAILY 12/23/21 12/23/21 History (formulary)] lisinopriL [Zestril] 10 mg PO BID 12/23/21 12/23/21 History Allergies Allergy/AdvReac Type Severity Reaction Status Date / Time procaine HCl [From Novocain] Allergy Severe Anaphylaxis Verified 12/23/21 07:39 pseudoephedrine HCl AdvReac Severe Rapid Verified 12/23/21 07:39 [From Sudafed] Heart Rate Surgical - Exam Vital Signs Temp Pulse Resp BP Pulse Ox 98.1 F 85 16 163/81 96 12/22/21 14:35 12/22/21 14:35 12/22/21 14:35 12/22/21 14:35 12/22/21 14:35 Physical exam: General: Well-developed, well-nourished HEENT: Normocephalic, sclerae nonicteric Abdomen: Nontender, nondistended Extremities: No edema Neuro: Alert and oriented Results - Labs 12/23/21 04:32 12/23/21 04:32 Abnormal Lab Results - Last 24 Hours (Table) 12/22/21 12/22/21 12/22/21 Range/Units 14:50 19:05 20:08 WBC (3.8-10.6) k/uL Neutrophils # (1.3-7.7) k/uL Lymphocytes # (1.0-4.8) k/uL Sodium (137-145) mmol/L Potassium (3.5-5.1) mmol/L Glucose (74-99) mg/dL POC Glucose (mg/dL) 136 H (75-99) mg/dL Hemoglobin A1c 7.4 H (0.0-6.0) % Plasma Lactic Acid Bradley 3.3 H* (0.7-2.0) mmol/L Calcium (8.4-10.2) mg/dL AST (14-36) U/L ALT (4-34) U/L Total Protein (6.3-8.2) g/dL Albumin (3.5-5.0) g/dL HDL Cholesterol (40.00-60.00) mg/dL 12/23/21 12/23/21 12/23/21 Range/Units 04:32 04:32 12:49 WBC 12.8 H (3.8-10.6) k/uL Neutrophils # 11.9 H (1.3-7.7) k/uL Lymphocytes # 0.5 L (1.0-4.8) k/uL Sodium 134 L (137-145) mmol/L Potassium 3.4 L (3.5-5.1) mmol/L Glucose 155 H (74-99) mg/dL POC Glucose (mg/dL) 123 H (75-99) mg/dL Hemoglobin A1c (0.0-6.0) % Plasma Lactic Acid Bradley (0.7-2.0) mmol/L Calcium 7.7 L (8.4-10.2) mg/dL AST 367 H (14-36) U/L ALT 329 H (4-34) U/L Total Protein 4.8 L (6.3-8.2) g/dL Albumin 2.8 L (3.5-5.0) g/dL HDL Cholesterol 38.00 L (40.00-60.00) mg/dL Diabetes panel 12/22/21 12/23/21 Range/Units 14:50 04:32 Sodium 134 L (137-145) mmol/L Potassium 3.4 L (3.5-5.1) mmol/L Chloride 107 (98-107) mmol/L Carbon Dioxide 23 (22-30) mmol/L BUN 15 (7-17) mg/dL Creatinine 0.72 (0.52-1.04) mg/dL Glucose 155 H (74-99) mg/dL Hemoglobin A1c 7.4 H (0.0-6.0) % Calcium 7.7 L (8.4-10.2) mg/dL AST 367 H (14-36) U/L ALT 329 H (4-34) U/L Alkaline Phosphatase 72 (38-126) U/L Total Protein 4.8 L (6.3-8.2) g/dL Albumin 2.8 L (3.5-5.0) g/dL Triglycerides 91.70 (0.00-149.00) mg/dL HDL Cholesterol 38.00 L (40.00-60.00) mg/dL Calcium panel 12/23/21 Range/Units 04:32 Calcium 7.7 L (8.4-10.2) mg/dL Albumin 2.8 L (3.5-5.0) g/dL Pituitary panel 12/23/21 Range/Units 04:32 Sodium 134 L (137-145) mmol/L Potassium 3.4 L (3.5-5.1) mmol/L Chloride 107 (98-107) mmol/L Carbon Dioxide 23 (22-30) mmol/L BUN 15 (7-17) mg/dL Creatinine 0.72 (0.52-1.04) mg/dL Glucose 155 H (74-99) mg/dL Calcium 7.7 L (8.4-10.2) mg/dL Adrenal panel 12/23/21 Range/Units 04:32 Sodium 134 L (137-145) mmol/L Potassium 3.4 L (3.5-5.1) mmol/L Chloride 107 (98-107) mmol/L Carbon Dioxide 23 (22-30) mmol/L BUN 15 (7-17) mg/dL Creatinine 0.72 (0.52-1.04) mg/dL Glucose 155 H (74-99) mg/dL Calcium 7.7 L (8.4-10.2) mg/dL Total Bilirubin 1.2 (0.2-1.3) mg/dL AST 367 H (14-36) U/L ALT 329 H (4-34) U/L Alkaline Phosphatase 72 (38-126) U/L Total Protein 4.8 L (6.3-8.2) g/dL Albumin 2.8 L (3.5-5.0) g/dL Assessment and Plan (1) Acute pancreatitis Narrative/Plan: 76-year-old female with pancreatitis. Patient's liver enzymes also elevated and gallbladder wall thickening noted raising the suspicion for choledocholithiasis as the etiology. Patient's fevers, chills, mental status changes last night raise possibility of ascending cholangitis. Patient doing better on IV antibiotics. We'll order an MRCP at this time to better evaluate the patient's gallbladder and biliary tree. Patient may require cholecystectomy either later during this hospitalization or as an outpatient. We'll follow with you. Continue antibiotics. Current Visit: Yes Status: Acute Code(s): K85.90 - ACUTE PANCREATITIS WITHOUT NECROSIS OR INFECTION, UNSP SNOMED Code(s): 962369570
[2021-12-23 16:08] LABS: Glucose,Whole Blood 106 mg/dL (75-99)
[2021-12-23] MEDS: HEPARIN SODIUM,PORCINE/PF 5,000 UNIT/0.5 ML SYRINGE SQ SCH ×2 (16:59→23:50)
[2021-12-23 20:14] LABS: Glucose,Whole Blood 136 mg/dL (75-99)
[2021-12-24] MEDS: SODIUM CHLORIDE 0.9% 1,000 ML IV SCH ×6 (02:31→20:23)
[2021-12-24] MEDS: PIPERACILLIN-TAZOBACTAM 3.375 GM in SODIUM CHLORIDE 0.9% 100 ML IVPB SCH ×3 (04:11→20:22)
[2021-12-24 06:25] LABS: Glucose,Whole Blood 133 mg/dL (75-99)
[2021-12-24 07:51] LABS: HCT 37.5 % (34.0-46.0); HGB 12.2 gm/dL (11.4-16.0); MCH 29.2 pg (25.0-35.0); MCHC 32.4 g/dL (31.0-37.0); Mean Platelet Volume 9.6; Platelet Count 132 k/uL (150-450); RBC 4.17 m/uL (3.80-5.40); RDW 13.1 % (11.5-15.5); WBC 9.9 k/uL (3.8-10.6)
[2021-12-24 08:04] LABS: ALT 292 U/L (4-34); AST 180 U/L (14-36); African American GFR (CKD) >90 (>60 ml/min/1.73 sqM); Albumin 3.2 g/dL (3.5-5.0); Alkaline Phosphatase 81 U/L (38-126); Anion Gap 7 mmol/L; Blood Urea Nitrogen 8 mg/dL (7-17); Calcium 8.1 mg/dL (8.4-10.2); Carbon Dioxide 23 mmol/L (22-30); Chloride 107 mmol/L (98-107); Glucose 122 mg/dL (74-99); Lipase 42 U/L (23-300); Non-African American GFR(CKD) 87 (>60 ml/min/1.73 sqM); Potassium 3.7 mmol/L (3.5-5.1); Sodium 137 mmol/L (137-145); Total Bilirubin 1.2 mg/dL (0.2-1.3); Total Protein 5.3 g/dL (6.3-8.2)
[2021-12-24] MEDS: HEPARIN SODIUM,PORCINE/PF 5,000 UNIT/0.5 ML SYRINGE SQ SCH ×3 (08:31→22:56)
[2021-12-24] MEDS ORDERED: lisinopriL 10 MG TAB PO SCH (09:30)
[2021-12-24 11:46] LABS: Glucose,Whole Blood 115 mg/dL (75-99)
--- NOTE | 2021-12-24 12:11 | P.PN ---
Subjective Progress Note Date: 12/24/21 Principal diagnosis: Pancreatitis This is a pleasant 76-year-old female who presented to the emergency department by EMS with complaints of chest pain. States that she began having chest pain yesterday afternoon, lasting about 30 minutes. Her family called EMS and they brought her to the emergency department. She has a past medical history diabetes mellitus, hypertension, hyperlipidemia and arthritis. She was noted to have elevated AST and ALTs as well as lipase on admission. She was noted to have fever with a max temp spike of 102. She underwent CT of the abdomen and pelvis that reported a contracted gallbladder with mild wall thickening could be cholecystitis. With no dilated ducts and no definite evidence of pancreatitis. Abdominal ultrasound also obtained with findings of no gallstones. Mild gallbladder wall thickening could be minimal cholecystitis. With no dilated ducts. Gastroenterology was consulted for acute pancreatitis. 12/24/2021. Patient is seen and examined is a follow-up for acute pancreatitis with elevated LFTs. She continues to state she has no abdominal pain, no nausea or vomiting. She has remained afebrile. Repeat labs today WBC 9.9 hemoglobin 12 platelet count 132,000 total bilirubin 1.2 AST 180 ALT 290 alk phos 81 lipase 42. She is scheduled to go down for MRCP. Gen. surgery is following Objective - Vital Signs Vital signs: Vital Signs Temp 98.1 F 12/24/21 08:00 Pulse 66 12/24/21 08:00 Resp 16 12/24/21 08:00 BP 181/75 12/24/21 08:00 Pulse Ox 95 12/24/21 08:00 FiO2 Intake & Output 12/23/21 12/24/21 12/24/21 18:59 06:59 18:59 Intake Total 600 1500 Balance 600 1500 Weight 68.946 kg Intake: Intake, IV Titration 600 1140 Amount Piperacillin-Tazobactam 3 100 .375 gm In Sodium Chloride 0.9% 100 ml @ 25 mls/hr IVPB Q8H [facility] Rx#: [id number] Sodium Chloride 0.9% 1, 600 1040 000 ml @ 130 mls/hr IV . Q7H42M [facility] Rx#:[id number] Oral 360 Other: Voiding Method Toilet # Voids 1 - Exam General appearance: The patient is alert, oriented, appears in no acute distress. HET: Head is normocephalic and atraumatic. Conjunctiva pink. Sclera anicteric. Neck: Supple without lymphadenopathy. Abdomen: Soft, nontender, nondistended with bowel sounds. No guarding or rigidity. Extremities: Normal skin color and turgor. No pedal edema Skin: No rashes, no jaundice Neurological: No focal deficits. Alert and oriented x 3. - Labs CBC & Chem 7: 12/24/21 06:57 12/24/21 06:57 Labs: Abnormal Lab Results - Last 24 Hours (Table) 12/22/21 12/23/21 12/23/21 Range/Units 14:50 04:32 12:49 Plt Count (150-450) k/uL Glucose (74-99) mg/dL POC Glucose (mg/dL) 123 H (75-99) mg/dL Hemoglobin A1c 7.4 H (0.0-6.0) % Calcium (8.4-10.2) mg/dL AST (14-36) U/L ALT (4-34) U/L Total Protein (6.3-8.2) g/dL Albumin (3.5-5.0) g/dL HDL Cholesterol 38.00 L (40.00-60.00) mg/dL 12/23/21 12/23/21 12/24/21 Range/Units 16:07 20:07 06:24 Plt Count (150-450) k/uL Glucose (74-99) mg/dL POC Glucose (mg/dL) 106 H 136 H 133 H (75-99) mg/dL Hemoglobin A1c (0.0-6.0) % Calcium (8.4-10.2) mg/dL AST (14-36) U/L ALT (4-34) U/L Total Protein (6.3-8.2) g/dL Albumin (3.5-5.0) g/dL HDL Cholesterol (40.00-60.00) mg/dL 12/24/21 12/24/21 Range/Units 06:57 06:57 Plt Count 132 L (150-450) k/uL Glucose 122 H (74-99) mg/dL POC Glucose (mg/dL) (75-99) mg/dL Hemoglobin A1c (0.0-6.0) % Calcium 8.1 L (8.4-10.2) mg/dL AST 180 H (14-36) U/L ALT 292 H (4-34) U/L Total Protein 5.3 L (6.3-8.2) g/dL Albumin 3.2 L (3.5-5.0) g/dL HDL Cholesterol (40.00-60.00) mg/dL Microbiology - Last 24 Hours (Table) 12/22/21 18:50 Blood Culture - Preliminary Blood No Growth after 24 hours Assessment and Plan (1) Acute pancreatitis Narrative/Plan: 76-year-old female with no prior history of gallbladder disease or pancreatitis comes in to the emergency department with complaints of chest pain/epigastric pain. She was noted to have elevated lipase as well as AST and ALTs. CT of the abdomen and pelvis show no gallstones, no evidence of pancreatitis, however gallbladder wall thickening possible cholecystitis. Repeat labs today showed an elevation in her WBC to 12.8, AST increased from 171-367, ALTs from 69-329, Total bilirubin 1.2, lipase improved from 5369 to 238. Patient denies any previous history of liver disease, no history of alcohol use. Unclear etiology at this time, a CT of abdomen and pelvis as well as gallbladder ultrasound suggesting mild thickening of the gallbladder, possible cholecystitis. Gen. surgery consulted. Patient continues to be afebrile, no abdominal pain, nausea or vomiting. LFTs are trending down. Gen. surgery is on consult for possible cholecystitis and has ordered a MRI of the pancreas MRCP. Patient scheduled to go down at 1400 today. Current Visit: Yes Status: Acute Code(s): K85.90 - ACUTE PANCREATITIS WITHOUT NECROSIS OR INFECTION, UNSP SNOMED Code(s): 849486856 (2) Elevated LFTs Narrative/Plan: LFTs trending down. Total bilirubin remained stable at 1.2 AST 180 down from 367 ALT 292 down from 329 alkaline phosphatase remained stable 81 Current Visit: Yes Status: Acute Code(s): R79.89 - OTHER SPECIFIED ABNORMAL FINDINGS OF BLOOD CHEMISTRY SNOMED Code(s): 112988302 Plan: 1. Continue symptomatic and supportive care 2. Nothing by mouth for MRCP, then patient may have a low-fat diet and felt o alex with general surgery 3. Repeat CBC, CMP in the morning 4. Gen. surgery consulted for possible cholecystitis, patient requesting Dr. Browne 5. Further recommendations forthcoming based on MRI/MRCP Thank you for this consultation, we will continue to follow. Dr. Sander Hall I agree with the dictator's note, documented as a scribe by Yolanda Cyr.
--- NOTE | 2021-12-24 12:23 | P.PN ---
Subjective Progress Note Date: 12/24/21 Principal diagnosis: Pancreatitis Patient doing well today. Denies pain. Liver enzymes improved. Going for MRCP later this morning. Objective - Vital Signs Vital signs: Vital Signs Temp 98.1 F 12/24/21 11:53 Pulse 64 12/24/21 11:53 Resp 18 12/24/21 11:53 BP 181/70 12/24/21 11:53 Pulse Ox 94 L 12/24/21 11:53 FiO2 Intake & Output 12/23/21 12/24/21 12/24/21 18:59 06:59 18:59 Intake Total 600 1500 Balance 600 1500 Weight 68.946 kg Intake: Intake, IV Titration 600 1140 Amount Piperacillin-Tazobactam 3 100 .375 gm In Sodium Chloride 0.9% 100 ml @ 25 mls/hr IVPB Q8H [facility] Rx#: [id number] Sodium Chloride 0.9% 1, 600 1040 000 ml @ 130 mls/hr IV . Q7H42M [facility] Rx#:[id number] Oral 360 Other: Voiding Method Toilet # Voids 1 - Exam Abdomen: Soft, nontender, nondistended - Labs CBC & Chem 7: 12/24/21 06:57 12/24/21 06:57 Labs: Abnormal Lab Results - Last 24 Hours (Table) 12/23/21 12/23/21 12/23/21 Range/Units 12:49 16:07 20:07 Plt Count (150-450) k/uL Glucose (74-99) mg/dL POC Glucose (mg/dL) 123 H 106 H 136 H (75-99) mg/dL Calcium (8.4-10.2) mg/dL AST (14-36) U/L ALT (4-34) U/L Total Protein (6.3-8.2) g/dL Albumin (3.5-5.0) g/dL 12/24/21 12/24/21 12/24/21 Range/Units 06:24 06:57 06:57 Plt Count 132 L (150-450) k/uL Glucose 122 H (74-99) mg/dL POC Glucose (mg/dL) 133 H (75-99) mg/dL Calcium 8.1 L (8.4-10.2) mg/dL AST 180 H (14-36) U/L ALT 292 H (4-34) U/L Total Protein 5.3 L (6.3-8.2) g/dL Albumin 3.2 L (3.5-5.0) g/dL 12/24/21 Range/Units 11:44 Plt Count (150-450) k/uL Glucose (74-99) mg/dL POC Glucose (mg/dL) 115 H (75-99) mg/dL Calcium (8.4-10.2) mg/dL AST (14-36) U/L ALT (4-34) U/L Total Protein (6.3-8.2) g/dL Albumin (3.5-5.0) g/dL Microbiology - Last 24 Hours (Table) 12/22/21 18:50 Blood Culture - Preliminary Blood No Growth after 24 hours Assessment and Plan (1) Acute pancreatitis Narrative/Plan: Patient doing well today. Liver enzymes are improving. Still suspect probable gallstone pancreatitis. Await MRCP findings today. Current Visit: Yes Status: Acute Code(s): K85.90 - ACUTE PANCREATITIS WITHOUT NECROSIS OR INFECTION, UNSP SNOMED Code(s): 517808817
--- NOTE | 2021-12-24 14:35 | MR ---
EXAMINATION TYPE: MR pancreas / mrcp wo con DATE OF EXAM: 12/24/2021 COMPARISON: CT abdomen and pelvis 2 days ago HISTORY: cholangitis Standard multiplanar, multisequence MRI departmental protocol Multiplanar, multisequence images of the abdomen were acquired without contrast focusing on the pancr eas. FINDINGS: Patient claustrophobia and quit exam prior to dedicated MRCP imaging. Lung bases are grossl y clear. The liver is normal in size without obvious mass. There is some respiratory motion artifact degradation. No intraluminal gallstones. Trace adjacent fluid is noted coronal image 7 for reference. Common bile duct becomes more prominent and slightly dilated towards the duodenal ampulla measuring up to 8 mm in size. There is abrupt cut off with double duct sign near the ampulla coronal image 11 a nd 12 for reference. No intrahepatic biliary dilatation. No obvious mass at this level. Remainder of pancreatic duct shows visualization without abnormal dilatation. Incidental 1.0 cm thin-walled cyst lower pole left kidney coronal image 21. No hydronephrosis seen bi laterally. No suspicious bowel dilatation. Visualized osseous structures are intact. IMPRESSION: Markedly suboptimal study. Mild extrahepatic biliary dilatation greatest near the duodena l ampulla with abrupt cut off. Cannot exclude underlying duodenal ampullary mass or neoplasm. Conside r ERCP to further evaluate.
[2021-12-24] MEDS: NICOTINE 14MG/24HR PATCH TRANSDERM SCH (15:33)
--- NOTE | 2021-12-24 16:11 | P.PN ---
Subjective Patient was examined at bedside not complaining of any worsening symptomatology. Patient underwent MRCP today. Case discussed with RN present at bedside. Blood pressure slightly elevated most likely related to nervousness associated with upcoming examination and test. Objective - Vital Signs Vital signs: Vital Signs Temp 98 F 12/24/21 15:11 Pulse 69 12/24/21 15:11 Resp 16 12/24/21 15:11 BP 185/80 12/24/21 15:11 Pulse Ox 95 12/24/21 15:11 FiO2 Intake & Output 12/23/21 12/24/21 12/24/21 18:59 06:59 18:59 Intake Total 600 1500 390 Balance 600 1500 390 Weight 68.946 kg Intake: Intake, IV Titration 600 1140 390 Amount Piperacillin-Tazobactam 3 100 .375 gm In Sodium Chloride 0.9% 100 ml @ 25 mls/hr IVPB Q8H [facility] Rx#: [id number] Sodium Chloride 0.9% 1, 600 1040 390 000 ml @ 130 mls/hr IV . Q7H42M [facility] Rx#:[id number] Oral 360 Other: Voiding Method Toilet # Voids 1 1 - Exam General: non toxic, no acute distress, alert oriented to time place and person Head: atraumatic, normocephalic, symmetric Eyes: no lid lesion], anicteric sclera Mouth: no lip lesion, mucus membranes moist Cardiovascular: S1S2 reg rate and rhythm, no murmur, no gallop Lungs: Bilateral equal air entry, no wheezing no rhonchi no crackles. Abdominal: soft, nontender to palpation, no guarding, no appreciable organomegaly Ext: no gross muscle atrophy, no edema extremities warm to suppose a positive Neuro: Alert oriented to time place and person, exam grossly nonfocal Psych: Mood and affect appropriate, patient not so certain Skin exam: No rashes no jaundice. - Labs CBC & Chem 7: 12/24/21 06:57 12/24/21 06:57 Labs: Abnormal Lab Results - Last 24 Hours (Table) 12/23/21 12/23/21 12/24/21 Range/Units 16:07 20:07 06:24 Plt Count (150-450) k/uL Glucose (74-99) mg/dL POC Glucose (mg/dL) 106 H 136 H 133 H (75-99) mg/dL Calcium (8.4-10.2) mg/dL AST (14-36) U/L ALT (4-34) U/L Total Protein (6.3-8.2) g/dL Albumin (3.5-5.0) g/dL 12/24/21 12/24/21 12/24/21 Range/Units 06:57 06:57 11:44 Plt Count 132 L (150-450) k/uL Glucose 122 H (74-99) mg/dL POC Glucose (mg/dL) 115 H (75-99) mg/dL Calcium 8.1 L (8.4-10.2) mg/dL AST 180 H (14-36) U/L ALT 292 H (4-34) U/L Total Protein 5.3 L (6.3-8.2) g/dL Albumin 3.2 L (3.5-5.0) g/dL Microbiology - Last 24 Hours (Table) 12/22/21 18:50 Blood Culture - Preliminary Blood No Growth after 24 hours Assessment and Plan Assessment: Acute pancreatitis unclear etiology Gallbladder ultrasound negative patient denies any history of alcohol intake Reviewed lipid panel, Continue bowel rest with nothing by mouth IV fluid pain management and supportive care with antirheumatic medication MRCP ordered Chest pain likely atypical in the setting of above Doubt cardiac etiology Continue to trend troponin We'll check echocardiogram Continue cardiac telemetry Hypertension Uncontrolled, patient does not take any antihypertensive medication at home Currently when necessary hydralazine on discharge patient can be discharged on scheduled medication Diabetes mellitus Check hemoglobin A1c - 7.4 Hold oral hypoglycemic Continue insulin sliding scale Hyperlipidemia Patient at home on Zocor History of smoking Smoking cessation advice, counseling DVT prophylaxis subcut heparin CODE STATUS: Full code Discharge plan: Back to home versus rehab pending hospital course and clinical improvement
[2021-12-24 16:13] LABS: Glucose,Whole Blood 109 mg/dL (75-99)
--- NOTE | 2021-12-24 18:07 | CA ---
Transthoracic Echo Report Name: Pamela De León Age: 76 Gender: F : 1945 Exam Date: 12/23/2021 07:44 Exam Location: [facility] Ht (in): 65 Wt (lb): 152 Ordering Physician: Gustavo Hearn MD Attending/Referring Phys: Computer Service Technician Julissa Aguillon RDCS Procedure CPT: Indications: Chest Pain Cardiac Hx: HTN, DM, SMOKER Technical Quality: Contrast 1: Total Dose (mL): Contrast 2: Total Dose (mL): MEASUREMENTS (Male / Female) Normal Values 2D ECHO LV Diastolic Diameter PLAX 4.0 cm 4.2 - 5.9 / 3.9 - 5.3 cm LV Systolic Diameter PLAX 3.1 cm IVS Diastolic Thickness 1.0 cm 0.6 - 1.0 / 0.6 - 0.9 cm LVPW Diastolic Thickness 1.6 cm 0.6 - 1.0 / 0.6 - 0.9 cm LV Relative Wall Thickness 0.6 RV Internal Dim ED PLAX 2.8 cm LA Systolic Diameter LX 3.0 cm 3.0 - 4.0 / 2.7 - 3.8 cm LA Volume 58.1 cm??? 18 - 58 / 22 - 52 cm??? M-MODE Aortic Root Diameter MM 2.7 cm LA Systolic Diameter MM 4.4 cm LA Ao Ratio MM 1.6 MV E Point Septal Separation 0.2 cm AV Cusp Separation MM 1.7 cm DOPPLER AV Peak Velocity 169.3 cm/s AV Peak Gradient 11.5 mmHg MV Area PHT 3.9 cm??? Mitral E Point Velocity 94.1 cm/s Mitral A Point Velocity 100.1 cm/s Mitral E to A Ratio 0.9 MV Deceleration Time 196.6 ms MV E' Velocity 9.4 cm/s Mitral E to MV E' Ratio 10.0 TR Peak Velocity 258.6 cm/s TR Peak Gradient 26.7 mmHg Right Ventricular Systolic Press 31.7 mmHg FINDINGS Left Ventricle Normal Left ventricular size, wall thickness, systolic function with no obvious regional wall motion abnormalities. Left ventricular ejection fraction is estimated at 55-60%. Right Ventricle Normal right ventricular size and function. Right Atrium Normal right atrial size. Left Atrium Mildly increased left atrial volume. Mitral Valve Mild mitral regurgitation. Aortic Valve Trileaflet aortic valve. Mild AI. Tricuspid Valve Structurally normal tricuspid valve without significant stenosis. Pulmonary artery systolic pressure is normal. Pulmonic Valve Structurally normal pulmonic valve without significant stenosis. There is no pulmonic regurgitation. Pericardium Normal pericardium without effusion. Aorta Normal aortic root dimension. CONCLUSIONS Normal LV size and systolic function. Mild aortic and mitral insufficiency. No pulmonary hypertension no pericardial effusion Previewed by: Dr. Domenica Lyon MD (Electronically Signed) Final Date: 24 December 2021 18:07
[2021-12-24 19:12] LABS: Glucose,Whole Blood 168 mg/dL (75-99)
[2021-12-25] MEDS: SODIUM CHLORIDE 0.9% 1,000 ML IV SCH ×3 (02:15→12:42)
[2021-12-25] MEDS: PIPERACILLIN-TAZOBACTAM 3.375 GM in SODIUM CHLORIDE 0.9% 100 ML IVPB SCH ×2 (05:52→12:42)
[2021-12-25 06:17] LABS: Glucose,Whole Blood 141 mg/dL (75-99)
[2021-12-25] MEDS: NICOTINE 14MG/24HR PATCH TRANSDERM SCH (08:34)
[2021-12-25 08:41] VITALS: RESP 16; TEMP 98.1
[2021-12-25 08:53] LABS: Basophils % (A) 1 %; Eosinophils # (A) 0.1 k/uL (0-0.7); Eosinophils % (A) 1 %; HCT 39.1 % (34.0-46.0); Lymphocytes # (A) 1.1 k/uL (1.0-4.8); Lymphocytes % (A) 16 %; MCH 29.3 pg (25.0-35.0); MCHC 33.3 g/dL (31.0-37.0); MCV 87.9 fL (80.0-100.0); Monocytes # (A) 0.3 k/uL (0-1.0); Monocytes % (A) 4 %; Neutrophils # (A) 5.1 k/uL (1.3-7.7); Neutrophils % (A) 77 %; Platelet Count 160 k/uL (150-450); RBC 4.45 m/uL (3.80-5.40); RDW 13.5 % (11.5-15.5); WBC 6.7 k/uL (3.8-10.6)
[2021-12-25] MEDS ORDERED: lisinopriL 10 MG TAB PO SCH (09:00)
[2021-12-25 09:04] LABS: ALT 233 U/L (4-34); AST 90 U/L (14-36); African American GFR (CKD) >90 (>60 ml/min/1.73 sqM); Albumin 3.6 g/dL (3.5-5.0); Alkaline Phosphatase 94 U/L (38-126); Anion Gap 7 mmol/L; Blood Urea Nitrogen 5 mg/dL (7-17); Calcium 8.4 mg/dL (8.4-10.2); Carbon Dioxide 26 mmol/L (22-30); Chloride 106 mmol/L (98-107); Glucose 137 mg/dL (74-99); Non-African American GFR(CKD) >90 (>60 ml/min/1.73 sqM); Potassium 3.6 mmol/L (3.5-5.1); Sodium 139 mmol/L (137-145); Total Bilirubin 0.8 mg/dL (0.2-1.3); Total Protein 5.9 g/dL (6.3-8.2)
--- NOTE | 2021-12-25 11:03 | P.PN ---
Subjective Progress Note Date: 12/25/21 CHIEF COMPLAINT: Pancreatitis HISTORY OF PRESENT ILLNESS: Patient is sitting up at bedside chair. She denies any abdominal pain. Denies any nausea or vomiting. Patient's MRCP markedly suboptimal study. Mild extrahepatic biliary dilatation greatest near the duodenal ampulla with abrupt cut off. Cannot exclude underlying duodenal ampullary mass or neoplasm consider ERCP to further evaluate. Patient is followed by GI service. Afebrile. Blood pressure elevated. WBC is 6.7 hemoglobin is 13 plt 160 sodium is 139 potassium is 3.6 creatinine 0.54 PHYSICAL EXAM: VITAL SIGNS: Reviewed. GENERAL: Well-developed in no acute distress. HEENT: No sclera icterus. Extraocular movements grossly intact. Moist buccal mucosa. Head is atraumatic, normocephalic. ABDOMEN: Soft. Nondistended. Nontender. NEUROLOGIC: Alert and oriented. Cranial nerves II through XII grossly intact. ASSESSMENT: 1. Acute pancreatitis 2. LFTs trending down PLAN: -Await further GI recommendations -Continue supportive care -Diet per GI service Physician Kettle Coordinator note has been reviewed by physician. Signing provider agrees with the documented findings, assessment, and plan of care. I have personally seen and examined the patient, reviewed the MARINE ELECTRICIAN APPRENTICE /PAs history, exam and MDM and agree with the assessment and plan as written. Based on total visit time, I have performed more than 50% of the visit. As above: Patient's MRI results reviewed with her. Today's liver enzymes are improved. She has no pain. Options of ERCP, laparoscopic cholecystectomy, or observation discussed. Patient does not want any procedures done unless absolutely necessary she states. She understands there is a risk of recurrent c holedocholithiasis/cholangitis/gallstone pancreatitis with observation. She would like her diet advanced. She would like to go home and follow-up with me in the outpatient setting. Objective - Vital Signs Vital signs: Vital Signs Temp 98.1 F 12/25/21 08:00 Pulse 67 12/25/21 08:00 Resp 16 12/25/21 08:00 BP 174/76 12/25/21 08:00 Pulse Ox 98 12/25/21 08:00 FiO2 Intake & Output 12/24/21 12/25/21 12/25/21 18:59 06:59 18:59 Intake Total 390 940 Balance 390 940 Intake: Intake, IV Titration 390 700 Amount Piperacillin-Tazobactam 3 100 .375 gm In Sodium Chloride 0.9% 100 ml @ 25 mls/hr IVPB Q8H [facility] Rx#: [id number] Sodium Chloride 0.9% 1, 390 600 000 ml @ 130 mls/hr IV . Q7H42M [facility] Rx#:[id number] Oral 240 Other: # Voids 1 2 - Labs CBC & Chem 7: 12/25/21 07:52 12/25/21 07:52 Labs: Abnormal Lab Results - Last 24 Hours (Table) 12/24/21 12/24/21 12/24/21 Range/Units 11:44 16:11 19:10 BUN (7-17) mg/dL Glucose (74-99) mg/dL POC Glucose (mg/dL) 115 H 109 H 168 H (75-99) mg/dL AST (14-36) U/L ALT (4-34) U/L Total Protein (6.3-8.2) g/dL 12/25/21 12/25/21 Range/Units 06:15 07:52 BUN 5 L (7-17) mg/dL Glucose 137 H (74-99) mg/dL POC Glucose (mg/dL) 141 H (75-99) mg/dL AST 90 H (14-36) U/L ALT 233 H (4-34) U/L Total Protein 5.9 L (6.3-8.2) g/dL Microbiology - Last 24 Hours (Table) 12/22/21 18:50 Blood Culture - Preliminary Blood No Growth after 48 hours
[2021-12-25 11:42] LABS: Glucose,Whole Blood 115 mg/dL (75-99)
[2021-12-25] MEDS ORDERED: hydrALAZINE HCL 20 MG/ML 1 ML VIAL IVP STA (12:31)
[2021-12-25 13:39] VITALS: BP 145/63; PULSE 73
--- NOTE | 2021-12-25 14:26 | P.PN ---
Subjective Progress Note Date: 12/25/21 Principal diagnosis: Pancreatitis This is a pleasant 76-year-old female who presented to the emergency department by EMS with complaints of chest pain. States that she began having chest pain yesterday afternoon, lasting about 30 minutes. Her family called EMS and they brought her to the emergency department. She has a past medical history diabetes mellitus, hypertension, hyperlipidemia and arthritis. She was noted to have elevated AST and ALTs as well as lipase on admission. She was noted to have fever with a max temp spike of 102. She underwent CT of the abdomen and pelvis that reported a contracted gallbladder with mild wall thickening could be cholecystitis. With no dilated ducts and no definite evidence of pancreatitis. Abdominal ultrasound also obtained with findings of no gallstones. Mild gallbladder wall thickening could be minimal cholecystitis. With no dilated ducts. Gastroenterology was consulted for acute pancreatitis. 12/24/2021. Patient is seen and examined is a follow-up for acute pancreatitis with elevated LFTs. She continues to state she has no abdominal pain, no nausea or vomiting. She has remained afebrile. Repeat labs today WBC 9.9 hemoglobin 12 platelet count 132,000 total bilirubin 1.2 AST 180 ALT 290 alk phos 81 lipase 42. She is scheduled to go down for MRCP. Gen. surgery is following 12/25/2021. Patient underwent MRI of the pancreas/MRCP yesterday. Patient was unable to tolerate the MRI and quit exam prior to dedicated MRCP imaging. Findings were reported as markedly suboptimal study. Mild extrahepatic biliary dilation greatest near the duodenal ampulla with abrupt cutoff. Cannot exclude underlying duodenal ampullary mass or neoplasm consider ERCP. The patient states abdominal pain is completely resolved. She denies any nausea or vomiting. LFTs continued to trend down. Total bilirubin 0.8 AST 98 ALT 233 alkaline phosphatase 94. Patient has been afebrile. Objective - Vital Signs Vital signs: Vital Signs Temp 98.1 F 12/25/21 08:00 Pulse 67 12/25/21 08:00 Resp 16 12/25/21 08:00 BP 174/76 12/25/21 08:00 Pulse Ox 98 12/25/21 08:00 FiO2 Intake & Output 12/24/21 12/25/21 12/25/21 18:59 06:59 18:59 Intake Total 390 940 Balance 390 940 Intake: Intake, IV Titration 390 700 Amount Piperacillin-Tazobactam 3 100 .375 gm In Sodium Chloride 0.9% 100 ml @ 25 mls/hr IVPB Q8H [facility] Rx#: [id number] Sodium Chloride 0.9% 1, 390 600 000 ml @ 130 mls/hr IV . Q7H42M [facility] Rx#:[id number] Oral 240 Other: # Voids 1 2 - Exam General appearance: The patient is alert, oriented, appears in no acute distress. HET: Head is normocephalic and atraumatic. Conjunctiva pink. Sclera anicteric. Neck: Supple without lymphadenopathy. Abdomen: Soft, nontender, nondistended with bowel sounds. No guarding or rigidity. Extremities: Normal skin color and turgor. No pedal edema Skin: No rashes, no jaundice Neurological: No focal deficits. Alert and oriented x 3. - Labs CBC & Chem 7: 12/25/21 07:52 12/25/21 07:52 Labs: Abnormal Lab Results - Last 24 Hours (Table) 12/24/21 12/24/21 12/24/21 Range/Units 11:44 16:11 19:10 BUN (7-17) mg/dL Glucose (74-99) mg/dL POC Glucose (mg/dL) 115 H 109 H 168 H (75-99) mg/dL AST (14-36) U/L ALT (4-34) U/L Total Protein (6.3-8.2) g/dL 12/25/21 12/25/21 Range/Units 06:15 07:52 BUN 5 L (7-17) mg/dL Glucose 137 H (74-99) mg/dL POC Glucose (mg/dL) 141 H (75-99) mg/dL AST 90 H (14-36) U/L ALT 233 H (4-34) U/L Total Protein 5.9 L (6.3-8.2) g/dL Microbiology - Last 24 Hours (Table) 12/22/21 18:50 Blood Culture - Preliminary Blood No Growth after 48 hours Assessment and Plan (1) Acute pancreatitis Narrative/Plan: 76-year-old female with no prior history of gallbladder disease or pancreatitis comes in to the emergency department with complaints of chest pain/epigastric pain. She was noted to have elevated lipase as well as AST and ALTs. CT of the abdomen and pelvis show no gallstones, no evidence of pancreatitis, however gallbladder wall thickening possible cholecystitis. Repeat labs today showed an elevation in her WBC to 12.8, AST increased from 171-367, ALTs from 69-329, Total bilirubin 1.2, lipase improved from 5369 to 238. Patient denies any previous history of liver disease, no history of alcohol use. Unclear etiology at this time, a CT of abdomen and pelvis as well as gallbladder ultrasound suggesting mild thickening of the gallbladder, possible cholecystitis. Gen. surgery consulted. Patient continues to be afebrile, no abdominal pain, nausea or vomiting. LFTs are trending down. Gen. surgery is on consult for possible cholecystitis and has ordered a MRI of the pancreas MRCP. Patient scheduled to go down at 1400 today. Patient was not able to tolerate MRI/MRCP due to claustrophobia. Partial of the exam was completed however the MRCP portion was not fully completed.there was no reported filling defects. It was a suboptimal study with mild extrahepatic biliary dilation greatest near the duodenal ampulla with abrupt cut off. Patient is not having any further symptoms. LFTs continue to trend down. Possibility of a stone that had passed. This was discussed with general surgery and patient does not want to proceed with any endoscopic evaluation or surgical procedures unless absolutely necessary. Plan is for patient to follow-up with general surgery outpatient. Current Visit: Yes Status: Acute Code(s): K85.90 - ACUTE PANCREATITIS WITHOUT NECROSIS OR INFECTION, UNSP SNOMED Code(s): 517669028 (2) Elevated LFTs Narrative/Plan: LFTs trending down. Total bilirubin remained stable at 1.2 AST 180 down from 367 ALT 292 down from 329 alkaline phosphatase remained stable 81 Current Visit: Yes Status: Acute Code(s): R79.89 - OTHER SPECIFIED ABNORMAL FINDINGS OF BLOOD CHEMISTRY SNOMED Code(s): 102169385 Plan: 1. Continue symptomatic and supportive care 2. May advance to low-fat diet 3. MRI/MRCP reviewed. No plans on proceeding with ERCP 5. Gen. surgery in consultation, appreciate their recommendations. On discussion was had with the patient and patient does not want any procedures done at this time unless absolutely necessary. Plan is for conservative management and outpatient follow-ral surgery. Thank you for this consultation, patient is stable for discharge from a gastroenterology standpoint. Dr. Sander Hall I agree with the dictator's note, documented as a scribe by Yolanda Cyr.
--- NOTE | 2021-12-25 14:56 | P.DS ---
Providers Date of admission: 12/22/21 21:03 Attending physician: Gustavo Hearn MD Consults: 12/23/21 06:00 Consult Physician Urgent Consulting Provider: Tanika Hall Consult Reason/Comments: Acute pancreatitis Do you want consulting provider notified?: Yes 12/23/21 09:46 Consult Physician Routine Consulting Provider: Sergio Browne Consult Reason/Comments: pancreatitis, gall bladder wall thickening (pt requested you) Do you want consulting provider notified?: Yes Primary care physician: Hector Hastings MD Hospital Course: 76-year-old female presents emergency department with chief complaint of epigastric, chest discomfort. Patient states this started a few hours prior arrival. Patient states she became very sweaty, uncomfortable feeling. Patient states initially that it was just GI upset, reflux seemed to progress. She states she's had bouts of this in the past with this ecchymosis severe. She takes daily for dose aspirin in which she has taken today. No prior cardiac disease she does admit that she is a daily smoker him a history of hypertension, diabetes and hyperlipidemia. Patient states she is on metformin 2000 mg daily, fosinopril in which she's had recent medication increases. Patient states she is also supposed be on Lipitor. Patient denies any vomiting diarrhea constipation. Patient denies being alcohol user. Patient offers no other associated complaints. Patient's initial workup reveals evidence of acute pancreatitis with elevated lipase over 5000. CT was obtained as patient has no history of pancreatitis is not alcohol abuser. CT does not show any evidence of pancreatitis, possibly mildly thickened gallbladder wall. atient will be admitted for acute pancreatitis any fluid hydration, pain control and further evaluation. Patient was evaluated by general surgery as well as gastrology team. LFTs are slowly trending down. MRCP, further imaging results were completed and reviewed by the consulting team. Patient did have a long discussion regarding the risk- benefit scenario with myself including all the consultants and decided not to proceed with any surgical intervention. She will follow up with [facility] within 1 week of discharge to monitor her LFTs and pain. I spoke with general surgery as well as gastrology they are okay to let the patient be discharged today from their perspective. Patient's vital signs are stable blood pressure is also stable. Patient is asked to keep a close log of her blood pressure reading at home and antihypertensive medications can be adjusted her titrated accordingly. Patient has been very anxious during his hospital course most likely reason why her blood pressure has been slightly elevated. Case discussed in detail with consulted, RN and patient. Patient Condition at Discharge: Fair Plan - Discharge Summary Discharge Rx Participant: No New Discharge Prescriptions: New lisinopriL [Zestril] 30 mg PO DAILY #30 tab Continue metFORMIN HCL [Glucophage] 1,000 mg PO BID Aspirin 325 mg PO DAILY Cholecalciferol (Vitamin D3) [Vitamin D3 (3000 Iu)] 75 mcg PO DAILY Atorvastatin Calcium [Lipitor] 40 mg PO HS Multivitamins, Thera [Multivitamin (formulary)] 1 tab PO DAILY Discontinued lisinopriL [Zestril] 10 mg PO BID Discharge Medication List Aspirin 325 mg PO DAILY 01/20/14 [History] metFORMIN HCL [Glucophage] 1,000 mg PO BID 01/20/14 [History] Atorvastatin Calcium [Lipitor] 40 mg PO HS 12/23/21 [History] Cholecalciferol (Vitamin D3) [Vitamin D3 (3000 Iu)] 75 mcg PO DAILY 12/23/21 [History] Multivitamins, Thera [Multivitamin (formulary)] 1 tab PO DAILY 12/23/21 [History] lisinopriL [Zestril] 30 mg PO DAILY #30 tab 12/25/21 [Rx] Follow up Appointment(s)/Referral(s): Sergio Browne MD [Medical Doctor] - 1 Week Hector Hastings MD [Primary Care Provider] - 1-2 days Tanika Hall MD [STAFF PHYSICIAN] - 1 Week Discharge Disposition: HOME SELF-CARE
[2021-12-25] MEDS ORDERED: HEPARIN SODIUM,PORCINE/PF 5,000 UNIT/0.5 ML SYRINGE SQ SCH (16:00)
== END 2021-12-25 16:28 | disposition home or self-care (01) ==
LOC: EC 14:30 → 6NMEDSUR 16:26 → 3SCARD 21:02 → INTOOBSV 21:03 → OBSVTOIN 21:03 → 3SCARD 12-23 06:22 → UNDODISIN 12-25 16:28
PROVIDERS: ADMIT Student in an Organized Health Care Education/Training Program; ATTEND Student in an Organized Health Care Education/Training Program
DX: K85.90 Acute pancreatitis without necrosis or infection, unspecified (principal); K81.9 Cholecystitis, unspecified; R79.89 Other specified abnormal findings of blood chemistry; K82.8 Other specified diseases of gallbladder; R07.89 Other chest pain; F40.240 Claustrophobia; F41.9 Anxiety disorder, unspecified; D37.2 Neoplasm of uncertain behavior of small intestine; E11.9 Type 2 diabetes mellitus without complications; E78.5 Hyperlipidemia, unspecified; I10 Essential (primary) hypertension; K21.9 Gastro-esophageal reflux disease without esophagitis; F17.200 Nicotine dependence, unspecified, uncomplicated; M19.90 Unspecified osteoarthritis, unspecified site; R05.3 Chronic cough; H18.511 Endothelial corneal dystrophy, right eye; Z28.310 Unvaccinated for COVID-19; Z79.82 Long term (current) use of aspirin; Z79.84 Long term (current) use of oral hypoglycemic drugs; Z79.899 Other long term (current) drug therapy; Z88.4 Allergy status to anesthetic agent; Z87.2 Personal history of diseases of the skin and subcutaneous tissue; Z90.89 Acquired absence of other organs; Z98.890 Other specified postprocedural states; Z71.6 Tobacco abuse counseling; Z80.9 Family history of malignant neoplasm, unspecified
CPT/HCPCS: 96361 ×2; 96366 ×4; 96372 ×2; 96375 ×2; 96365; 99285; 36415; 93005 ×2; 93306; 80061 ×2; 80053 ×4; 83605; 83690 ×3; 83735; 84484; 85025 ×3; 85027; 85610; 85730; 81003; 87040; 83036; 71046; 76705; 74176; 74181; G0378 ×5; S4990 ×2; J2543 ×4; J0360; J0696; J1644 ×2

== ENCOUNTER 2024-11-10 11:33 | Inpatient (IN) | payer MEDICARE ==
--- NOTE | 2024-11-10 12:19 | ED ---
General Adult HPI - General Chief complaint: Altered Mental Status Stated complaint: Near syncope Time Seen by Provider: 11/10/24 11:38 Source: patient, RN/MD, RN notes reviewed Mode of arrival: EMS Limitations: no limitations - History of Present Illness Initial comments: Patient is an 79-year-old female presenting to the emergency department with near syncopal episode. Patient felt lightheaded and went to the bathroom. Patient felt like she was about to passed out and may have for a few seconds. Daughter does not believe that she did. Patient feels somewhat better at this time. Patient has mild tightness in her chest that she believes is secondary to her cough. No dyspnea. - Related Data Home Medications Medication Instructions Recorded Confirmed Aspirin EC [Ecotrin Low Dose] 81 mg PO DAILY 11/10/24 11/10/24 Cholecalciferol [Vitamin D3 (25 25 mcg PO DAILY 11/10/24 11/10/24 Mcg = 1000 Iu)] Multivit-Min/Iron/Folic/Lutein 1 tab PO DAILY 11/10/24 11/10/24 [Centrum Silver Women Tablet] Rosuvastatin Calcium 5 mg PO HS 11/10/24 11/10/24 lisinopriL [Lisinopril] 30 mg PO HS 11/10/24 11/10/24 metFORMIN HCL [Glucophage] 1,000 mg PO BID 11/10/24 11/10/24 Allergies Allergy/AdvReac Type Severity Reaction Status Date / Time procaine [From Novocain] Allergy Unknown Verified 11/10/24 12:34 pseudoephedrine Allergy Unknown Verified 11/10/24 12:34 [From Sudafed] Review of Systems ROS Statement: Those systems with pertinent positive or pertinent negative responses have been documented in the HPI. ROS Other: All systems not noted in ROS Statement are negative. Constitutional: Denies: fever Eyes: Denies: eye pain ENT: Reports: congestion. Denies: ear pain Respiratory: Reports: as per HPI, cough Cardiovascular: Reports: as per HPI Endocrine: Denies: fatigue Gastrointestinal: Denies: abdominal pain Neurological: Reports: as per HPI. Denies: headache, confusion General Exam Limitations: no limitations General appearance: alert, in no apparent distress Head exam: Present: normocephalic Eye exam: Present: normal appearance, PERRL, EOMI ENT exam: Present: normal oropharynx Neck exam: Present: normal inspection. Absent: meningismus Respiratory exam: Present: normal lung sounds bilaterally Cardiovascular Exam: Present: regular rate, normal rhythm GI/Abdominal exam: Present: soft. Absent: tenderness Extremities exam: Present: normal inspection. Absent: pedal edema, calf tenderness Neurological exam: Present: alert, oriented X3, CN II-XII intact. Absent: motor sensory deficit Expanded Neurological exam: Present: protecting the airway Speech: Present: fluid speech Cranial nerves: EOM's Intact: Normal Motor strength exam: RUE: 5, LUE: 5, RLE: 5, LLE: 5 Eye Response: (4) open spontaneously Motor Response: (6) obeys commands Verbal Response: (5) oriented Psychiatric exam: Present: normal affect, normal mood Skin exam: Present: normal color Course Vital Signs 11/10/24 11:35 Temperature 97.6 F Pulse Rate 82 Respiratory 18 Rate Blood Pressure 133/71 O2 Sat by Pulse 93 L Oximetry EKG Findings - EKG Results: EKG: interpreted by ERMD, sinus rhythm, normal axis, normal QRS, normal ST/T Medical Decision Making - Medical Decision Making Was pt. sent in by a medical professional or institution (, PA, RIVET HAMMER MACHINE OPERATOR, urgent care, hospital, or long term...) When possible be specific @ -No Did you speak to anyone other than the patient for history (EMS, parent, family, police, friend...)? What history was obtained from this source @ -Daughters are present and help provide history including syncopal versus near syncopal episode Did you review nursing and triage notes (agree or disagree)? Why? @ -I reviewed and agree with nursing and triage notes Were old charts reviewed (outside hosp., previous admission, EMS record, old EKG, old radiological studies, urgent care reports/EKG's, long term records)? Report findings @ -No old charts were reviewed Differential Diagnosis (chest pain, altered mental status, abdominal pain women, abdominal pain men, vaginal bleeding, weakness, fever, dyspnea, syncope, headache, dizziness, GI bleed, back pain, seizure, CVA, palpatations, mental health, musculoskeletal)? @ -Differential Syncope: Valvular disease, hypertrophic cardiomyopathy, pulmonary embolism, tamponade, tachycardia, bradycardia, RI, hypovolemia, hemorrhage, dissection, anemia, intracranial hemorrhage, seizure, hypoglycemia, carbon monoxide poisoning, this is not meant to be an all-inclusive list. EKG interpreted by me (3pts min.). @ -As above X-rays interpreted by me (1pt min.). @ -Chest x-ray without acute abnormality CT interpreted by me (1pt min.). @ -CT brain and CT chest without acute abnormality U/S interpreted by me (1pt. min.). @ -None done What testing was considered but not performed or refused? (CT, X-rays, U/S, labs)? Why? @ -None What meds were considered but not given or refused? Why? @ -None Did you discuss the management of the patient with other professionals (professionals i.e. , PA, RIVET HAMMER MACHINE OPERATOR, lab, RT, psych nurse, social organization professor, rafter cutting machine operator, teacher, traffic officer, human services case manager)? Give summary @ -[facility] to admit covering hospital call Was smoking cessation discussed for >3mins.? @ -No Was critical care preformed (if so, how long)? @ -No Were there social determinants of health that impacted care today? How? (Homelessness, low income, unemployed, alcoholism, drug addiction, transportation, low edu. Level, literacy, decrease access to med. care, [facility], rehab)? @ -No Was there de-escalation of care discussed even if they declined (Discuss DNR or withdrawal of care, Hospice)? DNR status @ -No What co-morbidities impacted this encounter? (DM, HTN, Smoking, COPD, CAD, Cancer, CVA, ARF, Chemo, Hep., AIDS, mental health diagnosis, sleep apnea, morbid obesity)? @ -None Was patient admitted / discharged? Hospital course, mention meds given and route, prescriptions, significant lab abnormalities, going to OR and other pertinent info. @ -Patient presents with syncopal versus near syncopal episode. Patient does have mild elevation of troponin and will be admitted with cardiac consult. Admission orders written. Patient reevaluated. Patient and family updated. Patient did have some indigestion however this has significantly improved with Pepcid Undiagnosed new problem with uncertain prognosis? @ -No Drug Therapy requiring intensive monitoring for toxicity (Heparin, Nitro, Insulin, Cardizem)? @ -No Were any procedures done? @ -No Diagnosis/symptom? @ -Syncope Acute, or Chronic, or Acute on Chronic? @ -Acute Uncomplicated (without systemic symptoms) or Complicated (systemic symptoms)? @ -Default Side effects of treatment? @ -No Exacerbation, Progression, or Severe Exacerbation? @ -No Poses a threat to life or bodily function? How? (Chest pain, USA, RI, pneumonia, PE, COPD, DKA, ARF, appy, cholecystitis, CVA, Diverticulitis, Homicidal, Suicidal, threat to staff... and all critical care pts) @ -No - Lab Data Result diagrams: 11/10/24 12:25 11/10/24 12:25 Lab Results 11/10/24 11/10/24 11/10/24 Range/Units 12:25 12: 12:25 WBC 13.44 H (4.50-10.00) 10*3/uL RBC 5.08 (4.10-5.20) 10*6/uL Hgb 14.9 (12.0-15.0) g/dL Hct 43.9 (37.2-46.3) % MCV 86.4 (80.0-97.0) fL MCH 29.3 (27.0-32.0) pg MCHC 33.9 (32.0-37.0) g/dL Plt Count 205 (140-440) 10*3/uL MPV 11.2 (9.5-12.2) fL Immature Gran % (Auto) 0.4 % Neutrophils % 83.8 % Lymphocytes % 11.8 % Monocytes % 3.0 % Eosinophils % 0.6 % Basophils % 0.4 % Immature Gran # 0.05 H (0.00-0.04) 10*3/uL Neutrophils # 11.28 H (1.80-7.70) 10*3/uL Lymphocytes # 1.58 (0.90-5.00) 10*3/uL Monocytes # 0.40 (0.20-1.00) 10*3/uL Eosinophils # 0.08 (0.04-0.35) 10*3/uL Basophils # 0.05 (0.00-0.10) 10*3/uL PT 10.7 (10.0-12.5) sec INR 1.0 (<1.2) APTT 21.1 L (22.0-30.0) sec D-Dimer 13.49 H (<0.60) mg/L FEU Sodium 137 (137-145) mmol/L Potassium 4.4 (3.5-5.1) mmol/L Chloride 102 (98-107) mmol/L Carbon Dioxide 25 (22-30) mmol/L Anion Gap 10 mmol/L BUN 19 H (7-17) mg/dL Creatinine 0.72 (0.52-1.04) mg/dL Est GFR (CKD-EPI)AfAm >90 (>60 ml/min/1.73 sqM) Est GFR (CKD-EPI)NonAf 80 (>60 ml/min/1.73 sqM) Glucose 210 H (74-99) mg/dL Calcium 9.3 (8.4-10.2) mg/dL Magnesium 1.7 (1.6-2.3) mg/dL Total Bilirubin 1.1 (0.2-1.3) mg/dL AST 222 H (14-36) U/L ALT 87 H (4-34) U/L Alkaline Phosphatase 83 (38-126) U/L Troponin I (0.000-0.034) ng/mL Total Protein 6.0 L (6.3-8.2) g/dL Albumin 3.7 (3.5-5.0) g/dL Influenza Type A (PCR) (Not Detectd) Influenza Type B (PCR) (Not Detectd) RSV (PCR) (Not Detectd) SARS-CoV-2 (PCR) (Not Detectd) 11/10/24 11/10/24 Range/Units 12:25 12:25 WBC (4.50-10.00) 10*3/uL RBC (4.10-5.20) 10*6/uL Hgb (12.0-15.0) g/dL Hct (37.2-46.3) % MCV (80.0-97.0) fL MCH (27.0-32.0) pg MCHC (32.0-37.0) g/dL Plt Count (140-440) 10*3/uL MPV (9.5-12.2) fL Immature Gran % (Auto) % Neutrophils % % Lymphocytes % % Monocytes % % Eosinophils % % Basophils % % Immature Gran # (0.00-0.04) 10*3/uL Neutrophils # (1.80-7.70) 10*3/uL Lymphocytes # (0.90-5.00) 10*3/uL Monocytes # (0.20-1.00) 10*3/uL Eosinophils # (0.04-0.35) 10*3/uL Basophils # (0.00-0.10) 10*3/uL PT (10.0-12.5) sec INR (<1.2) APTT (22.0-30.0) sec D-Dimer (<0.60) mg/L FEU Sodium (137-145) mmol/L Potassium (3.5-5.1) mmol/L Chloride (98-107) mmol/L Carbon Dioxide (22-30) mmol/L Anion Gap mmol/L BUN (7-17) mg/dL Creatinine (0.52-1.04) mg/dL Est GFR (CKD-EPI)AfAm (>60 ml/min/1.73 sqM) Est GFR (CKD-EPI)NonAf (>60 ml/min/1.73 sqM) Glucose (74-99) mg/dL Calcium (8.4-10.2) mg/dL Magnesium (1.6-2.3) mg/dL Total Bilirubin (0.2-1.3) mg/dL AST (14-36) U/L ALT (4-34) U/L Alkaline Phosphatase (38-126) U/L Troponin I 0.079 H* (0.000-0.034) ng/mL Total Protein (6.3-8.2) g/dL Albumin (3.5-5.0) g/dL Influenza Type A (PCR) Not Detected (Not Detectd) Influenza Type B (PCR) Not Detected (Not Detectd) RSV (PCR) Not Detected (Not Detectd) SARS-CoV-2 (PCR) Not Detected (Not Detectd) Disposition Clinical Impression: Syncope Disposition: ADMITTED IP TO THIS HOSP Is patient prescribed a controlled substance at d/c from ED?: No Referrals: None,Stated [Primary Care Provider] - 1-2 days Time of Disposition: 14:56
[2024-11-10 12:42] LABS: Basophils # (A) 0.05 10*3/uL (0.00-0.10); Basophils % (A) 0.4 %; Eosinophils # (A) 0.08 10*3/uL (0.04-0.35); Eosinophils % (A) 0.6 %; HCT 43.9 % (37.2-46.3); HGB 14.9 g/dL (12.0-15.0); Lymphocytes # (A) 1.58 10*3/uL (0.90-5.00); Lymphocytes % (A) 11.8 %; MCH 29.3 pg (27.0-32.0); MCHC 33.9 g/dL (32.0-37.0); MCV 86.4 fL (80.0-97.0); Mean Platelet Volume 11.2 fL (9.5-12.2); Neutrophils # (A) 11.28 10*3/uL (1.80-7.70); Neutrophils % (A) 83.8 %; Platelet Count 205 10*3/uL (140-440); RBC 5.08 10*6/uL (4.10-5.20); RDW 13.1 % (11.5-14.5); WBC 13.44 10*3/uL (4.50-10.00)
[2024-11-10 12:53] LABS: ALT 87 U/L (4-34); African American GFR (CKD) >90 (>60 ml/min/1.73 sqM); Albumin 3.7 g/dL (3.5-5.0); Anion Gap 10 mmol/L; Blood Urea Nitrogen 19 mg/dL (7-17); Calcium 9.3 mg/dL (8.4-10.2); Carbon Dioxide 25 mmol/L (22-30); Chloride 102 mmol/L (98-107); Glucose 210 mg/dL (74-99); Non-African American GFR(CKD) 80 (>60 ml/min/1.73 sqM); Sodium 137 mmol/L (137-145); Total Bilirubin 1.1 mg/dL (0.2-1.3)
[2024-11-10 12:59] LABS: AST 222 U/L (14-36); Alkaline Phosphatase 83 U/L (38-126); Potassium 4.4 mmol/L (3.5-5.1)
[2024-11-10 13:00] LABS: Magnesium 1.7 mg/dL (1.6-2.3)
[2024-11-10 13:04] LABS: Partial Thromboplastin Time 21.1 sec (22.0-30.0); Prothrombin Time 10.7 sec (10.0-12.5)
[2024-11-10] MEDS: FAMOTIDINE 20 MG/2 ML VIAL IV STA (14:18)
--- NOTE | 2024-11-10 14:29 | CT ---
EXAMINATION TYPE: CT brain wo con DATE OF EXAM: 11/10/2024 COMPARISON: None CLINICAL INDICATION: Female, 79 years old with history of syncope; PHH, Syncope, AMS CT DLP: 1171.4 mGycm Automated exposure control for dose reduction was used. Findings: The ventricles, basal cisterns and sulci convexities are moderately enlarged consistent with moderate generalized atrophy. There is mild decreased density in the periventricular white matter consistent with mild chronic ischemic white matter demyelination. There is no mass effect or shift of midline structures. There is no acute intra or extra-axial hemorrhage. The posterior fossa including the brainstem, fourth ventricle and cerebellar pontine angles appear no rmal. Intraorbital contents appear normal and symmetric. Visualized paranasal sinuses and mastoid air cells are well aerated. The calvarium is intact. IMPRESSION: 1. No acute bleed or mass effect. 2. Moderate age-appropriate atrophy and mild chronic ischemic white matter demyelination. [facility], , 11/10/2024 2:26 PM
--- NOTE | 2024-11-10 14:30 | XR ---
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 The heart is upper limits of normal in size. Atherosclerotic calcifications throughout the aorta. Interstitial pro minence and hyperinflation. No consolidation or pleural effusion. IMPRESSION: 1. COPD. No definite acute process. 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
--- NOTE | 2024-11-10 14:33 | CT ---
EXAMINATION TYPE: CT angio chest DATE OF EXAM: 11/10/2024 COMPARISON: CLINICAL INDICATION: Female, 79 years old with history of syncope; PHH, Syncope elevated dimer TECHNIQUE: CTA scan of the thorax is performed with IV Contrast, patient injected with 100 ml mL of Isovue 370, pulmonary embolism protocol. MIP images are created and reviewed. CT DLP: 336.[address] CTDI: mGy Automated exposure control for dose reduction was used. FINDINGS: There is no filling defect within the pulmonary arterial circulation to suggest pulmonary embolism. There is mild fusiform aneurysmal dilatation of the descending thoracic aorta which is approximately 3.2 cm. There is mild circumferential mural thrombus within it. There is no mediastinal, hilar or axi llary adenopathy. There is no airspace consolidation. There are mild interstitial changes in the left lung base. There is no suspicious lung mass or nodule. There is no cardiomegaly. There is no pleural effusion or pneumothorax. Limited scanning through the upper abdomen reveals no gross abnormality. There are no focal osseous lesions. IMPRESSION: 1. No evidence of pulmonary embolus. 2. Mild chronic interstitial changes in the left lung base but no acute cardiopulmonary disease. 3. 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
[2024-11-10 14:53] LABS: Influenza A Not Detected (Not Detectd); Influenza B Not Detected (Not Detectd); RSV Not Detected (Not Detectd)
[2024-11-10] MEDS ORDERED: NALOXONE 0.4 MG/ML 1 ML VIAL IV PRN (14:56)
[2024-11-10] MEDS: SODIUM CHLORIDE 0.9% 1,000 ML IV SCH (16:19)
[2024-11-10] MEDS: ASPIRIN 325 MG TAB PO STA (16:19)
[2024-11-10] MEDS: metFORMIN 500 MG TAB PO SCH (19:39)
[2024-11-10] MEDS: ATORVASTATIN 10 MG TAB PO SCH (20:38)
[2024-11-10] MEDS: lisinopriL 10 MG TAB PO SCH (20:40)
[2024-11-10] MEDS ORDERED: IOPAMIDOL CONTRAST (ORAL USE) VIAL PO PRN (23:21)
[2024-11-10] MEDS ORDERED: DEXTROSE 50% SYRINGE 50 ML IVP PRN ×2 (23:24)
--- NOTE | 2024-11-10 23:38 | P.HPIM ---
History of Present Illness This is a pleasant 79 years old female with past medical history as below Presents because patient was found in the toilet unresponsive and vomited on her close. Information were obtained with the help of the daughter at bedside The daughter does not think that the patient was passed out, she she was very lethargic she was very weak but no confusion she was sitting in the toilet and vomited on her close. The daughter does not think she had syncope. The patient however denies chest pain or dyspnea. No abdominal pain however she had loose bowel movement this morning about 3-4 times However patient was complaining from the heartburn in the middle of her chest. She denies dysuria or urgency she has little dry cough. No headache dizziness weakness or numbness She quit smoking, recently no alcohol or illicit drugs. And admission her blood pressure was stable but tightly becoming more low. Later on she developed fever of 100.5. She has mild leukocytosis of 13.4. Liver enzymes mildly elevated. Troponin started trending up CTA of the chest showed no PE or airspace consolidation although D-dimer was elevated more than 13,000 CT of the brain is negative for acute process. Chest x-ray showing COPD with no acute consolidation. EKG showing sinus rhythm about [address]-T changes. Blood culture requested. CT of the abdomen and pelvis also requested Discussed the case with the staff who contacted maintenance supervisor electrical on-call who recommends to hold on heparin drip for now Review of Systems Review of systems CONSTITUTIONAL: No fever, no malaise, no fatigue. HEENT: No recent visual problems or hearing problems. Denied any sore throat. CARDIOVASCULAR: No orthopnea, PND, no palpitations, no syncope. PULMONARY: No chest wall tenderness, no hemoptysis. GASTROINTESTINAL: no nausea, no abdominal pain. Normoactive bowel sounds. NEUROLOGICAL: No headaches, no weakness, no numbness. HEMATOLOGICAL: Denies any bleeding or petechiae. GENITOURINARY: Denies any burning micturition, frequency, or urgency. MUSCULOSKELETAL/RHEUMATOLOGICAL: Denies any joint pain, swelling, or any muscle pain. ENDOCRINE: Denies any polyuria or polydipsia. Past Medical History Past Medical History: Diabetes Mellitus, Hypertension Medications and Allergies Home Medications Medication Instructions Recorded Confirmed Type Aspirin EC [Ecotrin Low Dose] 81 mg PO DAILY 11/10/24 11/10/24 History Cholecalciferol [Vitamin D3 (25 25 mcg PO DAILY 11/10/24 11/10/24 History Mcg = 1000 Iu)] Multivit-Min/Iron/Folic/Lutein 1 tab PO DAILY 11/10/24 11/10/24 History [Centrum Silver Women Tablet] Rosuvastatin Calcium 5 mg PO HS 11/10/24 11/10/24 History lisinopriL [Lisinopril] 30 mg PO HS 11/10/24 11/10/24 History metFORMIN HCL [Glucophage] 1,000 mg PO BID 11/10/24 11/10/24 History Allergies Allergy/AdvReac Type Severity Reaction Status Date / Time procaine [From Novocain] Allergy Unknown Verified 11/10/24 12:34 pseudoephedrine Allergy Unknown Verified 11/10/24 12:34 [From Sudafed] Physical Exam Vitals: Vital Signs Temp Pulse Resp BP Pulse Ox 11/10/24 22:53 99.6 F 99 19 109/51 93 L 11/10/24 20:32 100.5 F H 103 H 20 104/48 93 L 11/10/24 16:22 98.1 F 105 H 19 127/66 93 L 11/10/24 15:40 105 H 18 122/64 95 11/10/24 11:35 97.6 F 82 18 133/71 93 L Intake and Output 11/10/24 11/10/24 11/11/24 14:59 22:59 06:59 Other: Weight 59.874 kg -GENERAL: The patient is alert and oriented x3, not in any acute distress. Well developed, well nourished. very weej and letharigic HEENT: Pupils are round and equally reacting to light. EOMI. No scleral icterus. No conjunctival pallor. Normocephalic, atraumatic. No pharyngeal erythema. No thyromegaly. CARDIOVASCULAR: S1 and S2 present. No murmurs, rubs, or gallops. PULMONARY: Chest is clear to auscultation, no wheezing , no crackles. ABDOMEN: Soft, nontender, nondistended, normoactive bowel sounds. No palpable organomegaly. MUSCULOSKELETAL: No joint swelling or deformity. EXTREMITIES: No cyanosis, clubbing, or pedal edema. NEUROLOGICAL: Gross neurological examination did not reveal any focal deficits. SKIN: No rashes. no petechiae. Results CBC & Chem 7: 11/10/24 12:25 11/10/24 12:25 Labs: Abnormal Lab Results - Last 24 Hours (Table) 11/10/24 11/10/24 11/10/24 Range/Units 12:25 12:25 12:25 WBC 13.44 H (4.50-10.00) 10*3/uL Immature Gran # 0.05 H (0.00-0.04) 10*3/uL Neutrophils # 11.28 H (1.80-7.70) 10*3/uL APTT 21.1 L (22.0-30.0) sec D-Dimer 13.49 H (<0.60) mg/L FEU BUN 19 H (7-17) mg/dL Glucose 210 H (74-99) mg/dL AST 222 H (14-36) U/L ALT 87 H (4-34) U/L Troponin I (0.000-0.034) ng/mL Total Protein 6.0 L (6.3-8.2) g/dL 11/10/24 11/10/24 11/10/24 Range/Units 12:25 16:15 19:30 WBC (4.50-10.00) 10*3/uL Immature Gran # (0.00-0.04) 10*3/uL Neutrophils # (1.80-7.70) 10*3/uL APTT (22.0-30.0) sec D-Dimer (<0.60) mg/L FEU BUN (7-17) mg/dL Glucose (74-99) mg/dL AST (14-36) U/L ALT (4-34) U/L Troponin I 0.079 H* 0.230 H* 0.356 H* (0.000-0.034) ng/mL Total Protein (6.3-8.2) g/dL Assessment and Plan Assessment: Sepsis with fever and leukocytosis Acute gastroenteritis Transaminitis Elevated troponin, rule out non-STEMI Generalized weakness and lethargic COPD with no exacerbation Diabetes mellitus Hypertension Hyperlipidemia Plan: Patient started on normal saline 75 mL/h Give a bolus of 500 mL liter Aspirin added Start Zosyn Consult infectious disease team Consult cardiology team Check echocardiogram Check urine analysis Follow-up blood culture Labs and medication were reviewed.. Continue same treatment. Continue with symptomatic treatment. Resume home medication. Monitor labs and vitals. DVT and GI prophylaxis. Further recommendations as per clinical course of the patient DVT prophylaxis: Subcutaneous heparin GI Prophylaxis: Ppi PT/OT: Pending Prognosis is guarded
[2024-11-11] MEDS: PIPERACILLIN-TAZOBACTAM 3.375 GM in SODIUM CHLORIDE 0.9% 100 ML IVPB SCH (01:16)
[2024-11-11] MEDS: HEPARIN SODIUM,PORCINE 5,000 UNIT/ML 1 ML VIAL SQ SCH (01:17)
[2024-11-11 02:38] LABS: Appearance,Urine Clear (Clear); Bilirubin,Urine Negative (Negative); Blood,Urine Negative (Negative); Color,Urine Yellow; Glucose,Urine (UA) Negative (Negative); Ketones,Urine Negative (Negative); Leukocyte Esterase,Urine Trace (Negative); Nitrite,Urine Negative (Negative); PH, Urine 5.5 (5.0-8.0); Protein,Urine Negative (Negative); RBC,Urine 2 /hpf (0-5); Specific Gravity,Urine 1.036 (1.001-1.035); Squamous Epithelial Cell,Urine 2 /hpf (0-4); Urobilinogen,Urine <2.0 mg/dL (<2.0); WBC,Urine 2 /hpf (0-5)
--- NOTE | 2024-11-11 03:06 | CT ---
EXAM: CT Abdomen and Pelvis Without Intravenous Contrast CLINICAL HISTORY: ITS.REASON CT Reason: elevated liver enz fever, vomiting TECHNIQUE: Axial computed tomography images of the abdomen and pelvis without intravenous contrast. CTDI is 8.2 mGy and DLP is 451.3 mGy-cm. This CT exam was performed using one or more of the following dose reduction techniques: automated exposure control, adjustment of the mA and/or kV according to patient size, and/or use of iterative reconstruction technique. COMPARISON: None. FINDINGS: Lung bases: Demonstrates pneumonic type interstitial infiltrates with poorly defined smaller areas of consolidation medially in the left lower lung lobe. No pleural effusion, ABDOMEN: Lack of IV contrast limits evaluation of soft tissues and vascular structures. Image quality is also degraded by motion artifact. Liver: A 8.2 cm hypodense lesion/cyst is seen superiorly in the right hepatic lobe. Gallbladder and bile ducts: A partially contracted gallbladder with 5 mm wall thickness and pericholecystic mild fat stranding (series 201 image 32, series 202 image 45). No calcified stones visualized. No ductal dilation. Pancreas: Grossly unremarkable. No ductal dilation. Spleen: No splenomegaly. Adrenals: There is asymmetric thickening of the left adrenal gland and surrounding mesenteric fat stranding (series 201 image 27). Right adrenal gland: Unremarkable. Kidneys and ureters: Residual IV contrast is seen bilaterally in renal collecting systems from a prior study. No obstructing stones. No hydronephrosis. Bilaterally mild perinephric fat stranding. Stomach and bowel: A small hiatal hernia. Diffusely a nondistended stomach with circumferential wall thickness is seen with nonspecific significant mesenteric fat stranding laterally in the left upper quadrant, mostly in the splenorenal region (series 202 image 59). No obstruction. Moderately large volume stool/gas is seen in the colon. PELVIS: Appendix: No acute findings in the region of the appendix Bladder: A contrast filled distended urinary bladder is seen with multiple tiny diverticuli. Reproductive: Unremarkable as visualized. ABDOMEN and PELVIS: Intraperitoneal space: Unremarkable. No free air. No significant fluid collection. Bones/joints: No acute fracture. No dislocation. Multilevel mild degenerative spondylitic changes are seen. Soft tissues: Small fat-containing right inguinal hernia. Vasculature: Diffuse calcified cyst of the aortoiliac vasculature and branch vessels. There is 3.7 cm wide infrarenal aortic aneurysm. Lymph nodes: No lymphadenopathy by CT size criteria. IMPRESSION: Lung base: Pneumonic type interstitial infiltrates with few smaller areas of consolidation are seen in the left lower lung lobe. A partially contracted gallbladder with increased wall thickness and with pericholecystic mild fat stranding is seen. Advise clinical correlation. The need for right upper quadrant ultrasound can be determined clinically. Asymmetric thickening of the left adrenal gland and surrounding mesenteric fat stranding, probably inflammatory in nature. Recommend clinical correlation. Nonspecific significant fat stranding seen laterally in the left upper quadrant mostly in the splenorenal region. Moderately large volume stool/gas in the colon. No bowel obstruction. Additional findings as described above. .
[2024-11-11 03:46] LABS: Basophils # (A) 0.07 10*3/uL (0.00-0.10); Basophils % (A) 0.6 %; Lymphocytes % (A) 7.8 %; MCHC 33.1 g/dL (32.0-37.0); MCV 87.6 fL (80.0-97.0); Monocytes # (A) 0.64 10*3/uL (0.20-1.00); Monocytes % (A) 5.5 %; Neutrophils % (A) 85.8 %; Platelet Count 152 10*3/uL (140-440); RBC 4.11 10*6/uL (4.10-5.20); RDW 13.5 % (11.5-14.5); WBC 11.55 10*3/uL (4.50-10.00)
[2024-11-11 04:03] LABS: ALT 429 U/L (4-34); AST 487 U/L (14-36); African American GFR (CKD) >90 (>60 ml/min/1.73 sqM); Albumin 3.1 g/dL (3.5-5.0); Alkaline Phosphatase 95 U/L (38-126); Anion Gap 9 mmol/L; Blood Urea Nitrogen 19 mg/dL (7-17); Calcium 8.8 mg/dL (8.4-10.2); Carbon Dioxide 22 mmol/L (22-30); Chloride 102 mmol/L (98-107); Glucose 183 mg/dL (74-99); Non-African American GFR(CKD) 82 (>60 ml/min/1.73 sqM); Potassium 4.4 mmol/L (3.5-5.1); Sodium 133 mmol/L (137-145); Total Bilirubin 1.4 mg/dL (0.2-1.3); Total Protein 5.2 g/dL (6.3-8.2)
[2024-11-11 04:04] LABS: HGB 11.9 g/dL (12.0-15.0)
[2024-11-11] MEDS: ACETAMINOPHEN TAB 325 MG TAB PO PRN (04:32)
[2024-11-11] MEDS: SODIUM CHLORIDE 0.9% 500 ML 500 ML IV ONE (04:33)
[2024-11-11 06:24] LABS: Glucose,Whole Blood 201 mg/dL (70-110)
[2024-11-11] MEDS: INSULIN LISPRO (HumaLOG) 100 UNIT/ML 10 mL VL SQ SCH (06:25)
--- NOTE | 2024-11-11 07:36 | US ---
EXAMINATION TYPE: US venous doppler duplex LE DATE OF EXAM: 11/11/2024 12:34 AM COMPARISON: NONE CLINICAL INDICATION: Female, 79 years old with history of leg swelling; Abnormal labs, Pain TECHNIQUE: The lower extremity deep venous system is examined utilizing real time linear array sonog abhay with graded compression, color doppler sonography, and spectral doppler. SIDE PERFORMED: Bilateral FINDINGS: VESSELS IMAGED: Common Femoral Vein Deep Femoral Vein Greater Saphenous Vein * Femoral Vein Popliteal Vein Small Saphenous Vein * Proximal Calf Veins (* superficial vessels) Right Leg: Negative for DVT, Color Doppler imaging shows patency of the vessels. Spectral waveforms are within normal limits. Left Leg: Negative for DVT, Color Doppler imaging shows patency of the vessels. Spectral waveforms a re within normal limits. IMPRESSION: No ultrasound evidence for deep venous thrombosis. [facility], , 11/11/2024 7:33 AM
--- NOTE | 2024-11-11 09:18 | P.PN ---
Subjective Progress Note Date: 11/11/24 This is a pleasant 79 years old female with past medical history as below Presents because patient was found in the toilet unresponsive and vomited on her close. Information were obtained with the help of the daughter at bedside The daughter does not think that the patient was passed out, she she was very lethargic she was very weak but no confusion she was sitting in the toilet and vomited on her close. The daughter does not think she had syncope. The patient however denies chest pain or dyspnea. No abdominal pain however she had loose bowel movement this morning about 3-4 times However patient was complaining from the heartburn in the middle of her chest. She denies dysuria or urgency she has little dry cough. No headache dizziness weakness or numbness She quit smoking, recently no alcohol or illicit drugs. And admission her blood pressure was stable but tightly becoming more low. Late r on she developed fever of 100.5. She has mild leukocytosis of 13.4. Liver enzymes mildly elevated. Troponin started trending up CTA of the chest showed no PE or airspace consolidation although D-dimer was elevated more than 13,000 CT of the brain is negative for acute process. Chest x-ray showing COPD with no acute consolidation. EKG showing sinus rhythm about [address]-T changes. Blood culture requested. CT of the abdomen and pelvis also requested Discussed the case with the staff who contacted child support investigator on-call who recommends to hold on heparin drip for now On 11/11/2024 patient is alert and oriented x 3. CT of abdomen and pelvis completed showing pneumonia type interstitial infiltrates with few small areas of consolidation on the left lower lung base a partially contracted gallbladder with increased wall thickness and pericholecystic mild fat stranding and asymmetric thickening of the left adrenal gland. At this time surgical services and infectious disease services consulted will also consult pulmonary services with concerns of aspiration pneumonia patient reports improvement with overall symptoms. Awaiting input from consulting providers. Venous Doppler negative for DVT. Current vital signs temp 98.1, heart rate 91, respiratory rate 17, blood pressure 108/55 with a pulse ox of 93% on 2 L Objective - Vital Signs Vital signs: Vital Signs Temp 98.1 F 11/11/24 08:30 Pulse 91 11/11/24 08:30 Resp 17 11/11/24 08:30 BP 108/55 11/11/24 08:30 Pulse Ox 93 L 05/02/25 08:30 FiO2 Intake & Output 11/10/24 11/11/24 11/11/24 18:59 06:59 18:59 Output Total 180 Balance -180 Weight 59.874 kg 60 kg Output: Urine 100 Post Void Residual 80 Other: Voiding Method Bedside Commode Bedside Commode - Exam Head normocephalic Neck supple Lungs clear to auscultation bilaterally no wheezing or crackles Heart regular rate and rhythm S1-S2, no rub or gallop Abdomen is soft nontender nondistended positive bowel sounds no hepatosplenomegaly Extremities no edema Neuro alert and orientated to 3 - Labs CBC & Chem 7: 11/11/24 03:11 11/11/24 03:11 Labs: Abnormal Lab Results - Last 24 Hours (Table) 11/10/24 11/10/24 11/10/24 Range/Units 12:25 12:25 12:25 WBC 13.44 H (4.50-10.00) 10*3/uL Hgb (12.0-15.0) g/dL Hct (37.2-46.3) % Immature Gran # 0.05 H (0.00-0.04) 10*3/uL Neutrophils # 11.28 H (1.80-7.70) 10*3/uL Eosinophils # (0.04-0.35) 10*3/uL APTT 21.1 L (22.0-30.0) sec D-Dimer 13.49 H (<0.60) mg/L FEU Sodium (137-145) mmol/L BUN 19 H (7-17) mg/dL Glucose 210 H (74-99) mg/dL POC Glucose (mg/dL) (70-110) mg/dL Plasma Lactic Acid Bradley (0.7-2.0) mmol/L Total Bilirubin (0.2-1.3) mg/dL AST 222 H (14-36) U/L ALT 87 H (4-34) U/L Troponin I (0.000-0.034) ng/mL Total Protein 6.0 L (6.3-8.2) g/dL Albumin (3.5-5.0) g/dL Procalcitonin (0.02-0.50) ng/mL Ur Specific [place] (1.001-1.035) Ur Leukocyte Esterase (Negative) 11/10/24 11/10/24 11/10/24 Range/Units 12:25 16:15 19:30 WBC (4.50-10.00) 10*3/uL Hgb (12.0-15.0) g/dL Hct (37.2-46.3) % Immature Gran # (0.00-0.04) 10*3/uL Neutrophils # (1.80-7.70) 10*3/uL Eosinophils # (0.04-0.35) 10*3/uL APTT (22.0-30.0) sec D-Dimer (<0.60) mg/L FEU Sodium (137-145) mmol/L BUN (7-17) mg/dL Glucose (74-99) mg/dL POC Glucose (mg/dL) (70-110) mg/dL Plasma Lactic Acid Bradley (0.7-2.0) mmol/L Total Bilirubin (0.2-1.3) mg/dL AST (14-36) U/L ALT (4-34) U/L Troponin I 0.079 H* 0.230 H* 0.356 H* (0.000-0.034) ng/mL Total Protein (6.3-8.2) g/dL Albumin (3.5-5.0) g/dL Procalcitonin (0.02-0.50) ng/mL Ur Specific [place] (1.001-1.035) Ur Leukocyte Esterase (Negative) 11/11/24 11/11/24 11/11/24 Range/Units 00:05 00:05 01:25 WBC (4.50-10.00) 10*3/uL Hgb (12.0-15.0) g/dL Hct (37.2-46.3) % Immature Gran # (0.00-0.04) 10*3/uL Neutrophils # (1.80-7.70) 10*3/uL Eosinophils # (0.04-0.35) 10*3/uL APTT (22.0-30.0) sec D-Dimer (<0.60) mg/L FEU Sodium (137-145) mmol/L BUN (7-17) mg/dL Glucose (74-99) mg/dL POC Glucose (mg/dL) (70-110) mg/dL Plasma Lactic Acid Bradley 4.7 H* (0.7-2.0) mmol/L Total Bilirubin (0.2-1.3) mg/dL AST (14-36) U/L ALT (4-34) U/L Troponin I (0.000-0.034) ng/mL Total Protein (6.3-8.2) g/dL Albumin (3.5-5.0) g/dL Procalcitonin 18.60 H (0.02-0.50) ng/mL Ur Specific [place] 1.036 H (1.001-1.035) Ur Leukocyte Esterase Trace H (Negative) 11/11/24 11/11/24 11/11/24 Range/Units 03:11 03:11 03:11 WBC 11.55 H (4.50-10.00) 10*3/uL Hgb 11.9 L D (12.0-15.0) g/dL Hct 36.0 L (37.2-46.3) % Immature Gran # (0.00-0.04) 10*3/uL Neutrophils # 9.90 H (1.80-7.70) 10*3/uL Eosinophils # 0.00 L (0.04-0.35) 10*3/uL APTT (22.0-30.0) sec D-Dimer (<0.60) mg/L FEU Sodium 133 L (137-145) mmol/L BUN 19 H (7-17) mg/dL Glucose 183 H (74-99) mg/dL POC Glucose (mg/dL) (70-110) mg/dL Plasma Lactic Acid Bradley 3.5 H* (0.7-2.0) mmol/L Total Bilirubin 1.4 H (0.2-1.3) mg/dL AST 487 H (14-36) U/L ALT 429 H (4-34) U/L Troponin I (0.000-0.034) ng/mL Total Protein 5.2 L (6.3-8.2) g/dL Albumin 3.1 L (3.5-5.0) g/dL Procalcitonin (0.02-0.50) ng/mL Ur Specific [place] (1.001-1.035) Ur Leukocyte Esterase (Negative) 11/11/24 Range/Units 06:22 WBC (4.50-10.00) 10*3/uL Hgb (12.0-15.0) g/dL Hct (37.2-46.3) % Immature Gran # (0.00-0.04) 10*3/uL Neutrophils # (1.80-7.70) 10*3/uL Eosinophils # (0.04-0.35) 10*3/uL APTT (22.0-30.0) sec D-Dimer (<0.60) mg/L FEU Sodium (137-145) mmol/L BUN (7-17) mg/dL Glucose (74-99) mg/dL POC Glucose (mg/dL) 201 H (70-110) mg/dL Plasma Lactic Acid Bradley (0.7-2.0) mmol/L Total Bilirubin (0.2-1.3) mg/dL AST (14-36) U/L ALT (4-34) U/L Troponin I (0.000-0.034) ng/mL Total Protein (6.3-8.2) g/dL Albumin (3.5-5.0) g/dL Procalcitonin (0.02-0.50) ng/mL Ur Specific [place] (1.001-1.035) Ur Leukocyte Esterase (Negative) Assessment and Plan Assessment: 1. Sepsis with fever and leukocytosis 2. Nausea and vomiting 3. Possible aspiration pneumonia 4. Acute cholecystitis 5. Elevated troponin 6. Adrenal gland inflammation 7. Elevated liver enzymes 8. History of COPD 9. History of diabetes mellitus 10. History of essential hypertension 11. History of hyperlipidemia DVT prophylaxis heparin. GI prophylaxis Protonix Cardiology, surgical, infectious disease and pulmonary services consulted 2D echo has been ordered Patient started on IV Zosyn Repeat labs ordered Blood culture ordered
[2024-11-11] MEDS: MULTIVITAMINS, THERA 1 EACH TAB PO SCH (09:51)
[2024-11-11] MEDS: CHOLECALCIFEROL 25 MCG (1000 IU) TABLET PO SCH (09:52)
[2024-11-11] MEDS: PANTOPRAZOLE 40 MG/10 ML VIAL IVP SCH (09:52)
[2024-11-11] MEDS: ASPIRIN 81 MG PO SCH (09:52)
--- NOTE | 2024-11-11 10:21 | P.CRDCN ---
History of Present Illness History of present illness: HISTORY OF PRESENT ILLNESS: This is a 79-year-old female with a past medical history significant for hypertension, hyperlipidemia, diabetes, and syncope. 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 We have been asked to see the patient in consultation for chest pain. Patient examined at the bedside. Patient's daughter is at the bedside. She states yesterday patient's blood pressure was elevated at home with a reading of 60/40. She reports she has been febrile at home. She reports having nausea vomiting, diarrhea at home. She states yesterday she had some pain in her shoulder blades as well. She reports a cough that started yesterday. She denies having any chest pain or pressure. The daughter states that her sister found her " semiunconscious" yesterday at home. DIAGNOSTICS: - EKG reveals sinus mechanism with no signs of acute ischemia. - Chest xray COPD. No signs of acute ischemia. - Laboratory data: WBC 11.5. Hemoglobin 11.9. Platelet count 152. Sodium 133. Potassium 4.4. BUN 19. Creatinine 0.70. Lactic acid 3.5. Bilirubin 1.4. AST 487. ALT 429. Troponin 0.079. 0.230. 0.356. Procalcitonin 18.60. - Current home cardiac medications include rosuvastatin 5 mg at night, aspirin 81 mg daily, on lisinopril 30 mg daily. - No previous echocardiogram, stress test, or cardiac catheterization available in EMR for review REVIEW OF SYSTEMS: At the time of my exam: CONSTITUTIONAL: Denies fever or chills. HEENT: Denies blurred vision, vision changes, or eye pain. Denies hemoptysis CARDIOVASCULAR: Denies chest pain. Denies orthopnea. Denies PND. Denies palpitations RESPIRATORY: Denies shortness of breath. GASTROINTESTINAL: Denies abdominal pain. Denies nausea or vomiting. HEMATOLOGIC: Denies bleeding disorders. GENITOURINARY: Denies any blood in urine. SKIN: Denies pruitis. Denies rash. PHYSICAL EXAM: VITAL SIGNS: Reviewed. GENERAL: Well-developed in no acute distress. HEENT: Head is normocephalic. Pupils are equal, round. Sclerae anicteric. Mucous membranes of the mouth are moist. Neck supple. No JVD or thyromegaly LUNGS: Respirations even and unlabored. Lungs essentially clear to auscultation bilaterally. HEART: Regular rate and rhythm. S1 and S2 heard. ABDOMEN: Soft. Nondistended. Nontender. EXTREMITIES: Normal range of motion. No clubbing or cyanosis. Peripheral pulses intact. No lower extremity edema NEUROLOGIC: Awake and alert. Oriented x 3. ASSESSMENT: Sepsis Nausea, vomiting, diarrhea Acute cholecystitis Elevated troponins, type II VA secondary to sepsis, no evidence of acute coronary syndrome Transaminitis Lactic acidosis History of hypertension History of hyperlipidemia History of diabetes History of syncope PLAN: Obtain 2D echo to assess cardiac structure and function Patient's troponin elevation likely secondary to sepsis with no evidence of acute coronary syndrome Discontinue lisinopril secondary to soft blood pressures and reported hypotension at home with a blood pressure of 60/40 Hold statin therapy secondary to transaminitis Continue aspirin 81 mg daily Await evaluation from general surgery and infectious disease Further recommendations pending patient course Nurse practitioner note has been reviewed by physician. Signing provider agrees with the documented findings, assessment, and plan of care documented by GENETIC TECHNOLOGIST as a scribe. Past Medical History Past Medical History: Diabetes Mellitus, Hyperlipidemia, Hypertension History of Any Multi-Drug Resistant Organisms: None Reported Past Anesthesia/Blood Transfusion Reactions: No Reported Reaction Past Psychological History: No Psychological Hx Reported Smoking Status: Former smoker Past Alcohol Use History: None Reported Past Drug Use History: None Reported Medications and Allergies Home Medications Medication Instructions Recorded Confirmed Type Aspirin EC [Ecotrin Low Dose] 81 mg PO DAILY 11/10/24 11/10/24 History Cholecalciferol [Vitamin D3 (25 25 mcg PO DAILY 11/10/24 11/10/24 History Mcg = 1000 Iu)] Multivit-Min/Iron/Folic/Lutein 1 tab PO DAILY 11/10/24 11/10/24 History [Centrum Silver Women Tablet] Rosuvastatin Calcium 5 mg PO HS 11/10/24 11/10/24 History lisinopriL [Lisinopril] 30 mg PO HS 11/10/24 11/10/24 History metFORMIN HCL [Glucophage] 1,000 mg PO BID 11/10/24 11/10/24 History prednisoLONE ACETATE 1% OPHTH 1 drop INTRAOCULA RT-Q6H 11/11/24 11/11/24 History [Pred Forte 1%] Allergies Allergy/AdvReac Type Severity Reaction Status Date / Time procaine [From Novocain] Allergy Unknown Verified 11/10/24 12:34 pseudoephedrine Allergy Unknown Verified 11/10/24 12:34 [From Sudafed] Physical Exam Vitals: Vital Signs Temp Pulse Pulse Resp BP BP Pulse Ox 11/11/24 06:27 99.4 F 11/11/24 04:00 102.6 F H 101 H 17 115/56 92 L 11/11/24 02:00 105 H 17 11/11/24 00:00 99.1 F 106 H 17 122/69 94 L 11/10/24 22:53 99.6 F 99 19 109/51 93 L 11/10/24 20:32 100.5 F H 103 H 20 104/48 93 L 11/10/24 16:22 98.1 F 105 H 19 127/66 93 L 11/10/24 15:40 105 H 18 122/64 95 11/10/24 11:35 97.6 F 82 18 133/71 93 L Intake and Output 11/10/24 11/11/24 11/11/24 22:59 06:59 14:59 Output Total 180 Balance -180 Output: Urine 100 Post Void Residual 80 Other: Voiding Method Bedside Commode Weight 60 kg Results 11/11/24 03:11 11/11/24 03:11 Cardiac Enzymes 11/10/24 11/10/24 11/10/24 Range/Units 12:25 12:25 16:15 AST 222 H (14-36) U/L Troponin I 0.079 H* 0.230 H* (0.000-0.034) ng/mL 11/10/24 11/11/24 Range/Units 19:30 03:11 AST 487 H (14-36) U/L Troponin I 0.356 H* (0.000-0.034) ng/mL Coagulation 11/10/24 Range/Units 12:25 PT 10.7 (10.0-12.5) sec APTT 21.1 L (22.0-30.0) sec CBC 11/10/24 11/11/24 Range/Units 12:25 03:11 WBC 13.44 H 11.55 H (4.50-10.00) 10*3/uL RBC 5.08 4.11 (4.10-5.20) 10*6/uL Hgb 14.9 11.9 L D (12.0-15.0) g/dL Hct 43.9 36.0 L (37.2-46.3) % Plt Count 205 152 (140-440) 10*3/uL Comprehensive Metabolic Panel 11/10/24 11/11/24 Range/Units 12:25 03:11 Sodium 137 133 L (137-145) mmol/L Potassium 4.4 4.4 (3.5-5.1) mmol/L Chloride 102 102 (98-107) mmol/L Carbon Dioxide 25 22 (22-30) mmol/L BUN 19 H 19 H (7-17) mg/dL Creatinine 0.72 0.70 (0.52-1.04) mg/dL Glucose 210 H 183 H (74-99) mg/dL Calcium 9.3 8.8 (8.4-10.2) mg/dL AST 222 H 487 H (14-36) U/L ALT 87 H 429 H (4-34) U/L Alkaline Phosphatase 83 95 (38-126) U/L Total Protein 6.0 L 5.2 L (6.3-8.2) g/dL Albumin 3.7 3.1 L (3.5-5.0) g/dL Current Medications Generic Name Dose Route Start Last Admin Trade Name Freq PRN Reason Stop Dose Admin Acetaminophen 650 mg 11/10/24 14:56 11/11/24 04:32 Acetaminophen Tab 325 Mg Tab PO 650 mg Q6HR PRN Administration Mild Pain or Fever > 100.5 Aspirin 81 mg 11/11/24 09:00 Aspirin 81 Mg PO DAILY [facility] Atorvastatin Calcium 10 mg 11/10/24 21:00 11/10/24 20:38 Atorvastatin 10 Mg Tab PO 10 mg HS JEMIMA Administration Cholecalciferol 25 mcg 11/11/24 09:00 Cholecalciferol 25 Mcg (1000 Iu) Tablet PO DAILY JEMIMA Dextrose/Water 25 ml 11/10/24 23:24 Dextrose 50% Syringe 50 Ml IVP PER PROTOCOL PRN Hypoglycemia Protocol Dextrose/Water 50 ml 11/10/24 23:24 Dextrose 50% Syringe 50 Ml IVP PER PROTOCOL PRN Hypoglycemia Protocol Heparin Sodium (Porcine) 5,000 unit 11/11/24 00:00 11/11/24 01:17 Heparin Sodium,Porcine 5,000 Unit/Ml 1 Ml Vial SQ 5,000 unit Q8HR JEMIMA Administration Sodium Chloride 1,000 mls @ 75 mls/hr 11/10/24 15:00 11/11/24 06:00 Saline 0.9% IV Not Given .[id number] JEMIMA Piperacillin Sod/Tazobactam 100 mls @ 25 mls/hr 11/10/24 00:00 11/11/24 04:52 Sod 3.375 gm/ Sodium Chloride IVPB Not Given Q8HR JEMIMA Protocol Insulin Human Lispro 0 unit 11/11/24 07:30 11/11/24 06:25 Insulin Lispro (Humalog) 100 Unit/Ml 10 Ml Vl SQ 2 unit ACHS JEMIMA Administration Protocol Iopamidol 30 ml 11/10/24 23:21 Iopamidol Contrast (Oral Use) Vial PO 11/11/24 23:[address] Scan Lisinopril 30 mg 11/10/24 21:00 11/10/24 20:40 Lisinopril 10 Mg Tab PO Not Given HS JEMIMA Multivitamins 1 each 11/11/24 09:00 Multivitamins, Thera 1 Each Tab PO DAILY JEMIMA Naloxone HCl 0.2 mg 11/10/24 14:56 Naloxone 0.4 Mg/Ml 1 Ml Vial IV Q2M PRN Opioid Reversal Pantoprazole Sodium 40 mg 11/11/24 09:00 Pantoprazole 40 Mg/10 Ml Vial IVP DAILY JEMIMA Intake and Output 11/10/24 11/11/24 11/11/24 22:59 06:59 14:59 Output Total 180 Balance -180 Output: Urine 100 Post Void Residual 80 Other: Voiding Method Bedside Commode Weight 60 kg 11/11/24 03:11 11/11/24 03:11
[2024-11-11 11:18] LABS: Glucose,Whole Blood 178 mg/dL (70-110)
--- NOTE | 2024-11-11 14:42 | P.GSCN ---
History of Present Illness Consult date: 11/11/24 History of present illness: CHIEF COMPLAINT: Altered mental status HISTORY OF PRESENT ILLNESS: This is a 79-year-old female who presented the hospital with altered mental status and near syncopal episode. Patient had felt like she was going to pass out when she went to the bathroom. Patient complains of heartburn. She denies any abdominal pain. Patient reports having similar symptoms about 3 years ago and was told she had gallstones but no surgical intervention was completed. Patient reports she had no abdominal pain at that time. Patient had a CT scan abdomen pelvis completed that reported a partially contracted gallbladder with increased wall thickness and with pericholecystic fluid stranding. Surgical service consulted for evaluation for acute juan cystitis and adrenal nodule. Patient with elevated LFTs. She denies any abdominal pain. Denies any prior abdominal surgeries. Patient did have a fever of 102.6 early this a.m, mildly tachycardic. There are also concerns for possible pneumonia. Patient on antibiotics. Patient seen and examined with Dr. Tim. All medical imaging and labs were reviewed with Dr. Tim. PAST MEDICAL HISTORY: Diabetes mellitus, hyperlipidemia, hypertension PAST SURGICAL HISTORY: See below MEDICATIONS: See below ALLERGIES: See below SOCIAL HISTORY: No illicit drug use. REVIEW OF SYSTEMS: CONSTITUTIONAL: Denies fever or chills. HEENT: Denies blurred vision, vision changes, or eye pain. Denies hemoptysis CARDIOVASCULAR: Denies chest pain or pressure. RESPIRATORY: No shortness of breath. GASTROINTESTINAL: See HPI for pertinent findings HEMATOLOGIC: Denies bleeding disorders. GENITOURINARY: Denies any blood in urine or increased urinary frequency. SKIN: Denies pruitis. Denies rash. PHYSICAL EXAM: VITAL SIGNS: Reviewed GENERAL: Well-developed in no acute distress. HEENT: No sclera icterus. Extraocular movements grossly intact. Moist buccal mucosa. Head is atraumatic, normocephalic. No nasal drainage. ABDOMEN: Soft. Nondistended. Nontender NEUROLOGIC: Alert and oriented. Cranial nerves II through XII grossly intact. LABORATORY DATA: WBC 13.4 down to 11.5 Hgb 14.9-11.9 platelets 152 D-dimer elevated Sodium 133 potassium 4.4 creatinine 0.70 Hemoglobin A1c 7.2 Total bilirubin 1.4 AST 487 ALT 429 alk phos 95 Elevated troponins IMAGING: CTA chest no evidence of PE. CT scan abdomen pelvis reports lung base pneumonic type interstitial infiltrates with few small areas of consolidation seen in the left lower lung. Partially contracted gallbladder with increased wall thickness and wall. Cholecystic mild fat stranding seen. Asymmetric thickening of left adrenal gland and surrounding mesenteric fat stranding possible inflammatory in nature. Nonspecific signi ficant fat stranding seen laterally in the left upper quadrant. Moderate large volume stool/gas in the colon no bowel obstruction. ASSESSMENT: 1. Chronic cholecystitis. No abdominal pain. 2. Elevated LFTs and total bilirubin 3. Left lower lobe pneumonia 4. Elevated troponins evaluated by cardiology service 5. Sepsis possible from patient's pneumonia PLAN: - MRCP was recommended due to elevated LFTs and total bilirubin to evaluate for choledocholithiasis. Patient declined MRCP due to anxiety with MRIs - Repeat LFTs in a.m. - Patient may need ERCP - Recommend cholecystectomy when medically stable - Continue antibiotics - Start clear liquid diet - Follow up on Abdominal US results - Dr. Tim is out of town starting tomorrow. Dr. Browne will pick up man coverage on 11/14/2024 Physician Laborer [place] note has been reviewed by physician. Signing provider agrees with the documented findings, assessment, and plan of care. Past Medical History Past Medical History: Diabetes Mellitus, Hyperlipidemia, Hypertension History of Any Multi-Drug Resistant Organisms: None Reported Past Anesthesia/Blood Transfusion Reactions: No Reported Reaction Past Psychological History: No Psychological Hx Reported Smoking Status: Former smoker Past Alcohol Use History: None Reported Past Drug Use History: None Reported - Past Family History Father Family Medical History: Cancer Sister(s) Family Medical History: Cancer Medications and Allergies Home Medications Medication Instructions Recorded Confirmed Type Aspirin 325 mg PO DAILY 01/20/14 12/23/21 History metFORMIN HCL [Glucophage] 1,000 mg PO BID 01/20/14 12/23/21 History Atorvastatin Calcium [Lipitor] 40 mg PO HS 12/23/21 12/23/21 History Cholecalciferol (Vitamin D3) 75 mcg PO DAILY 12/23/21 12/23/21 History [Vitamin D3 (3000 Iu)] Multivitamins, Thera [Multivitamin 1 tab PO DAILY 12/23/21 12/23/21 History (formulary)] lisinopriL [Zestril] 30 mg PO DAILY #30 tab 12/25/21 Rx Aspirin EC [Ecotrin Low Dose] 81 mg PO DAILY 11/10/24 11/10/24 History Cholecalciferol [Vitamin D3 (25 25 mcg PO DAILY 11/10/24 11/10/24 History Mcg = 1000 Iu)] Multivit-Min/Iron/Folic/Lutein 1 tab PO DAILY 11/10/24 11/10/24 History [Centrum Silver Women Tablet] Rosuvastatin Calcium 5 mg PO HS 11/10/24 11/10/24 History lisinopriL [Lisinopril] 30 mg PO HS 11/10/24 11/10/24 History metFORMIN HCL [Glucophage] 1,000 mg PO BID 11/10/24 11/10/24 History prednisoLONE ACETATE 1% OPHTH 1 drop INTRAOCULA RT-Q6H 11/11/24 11/11/24 History [Pred Forte 1%] Allergies Allergy/AdvReac Type Severity Reaction Status Date / Time procaine HCl [From Novocain] Allergy Severe Anaphylaxis Verified 11/11/24 12:26 procaine [From Novocain] Allergy Unknown Verified 11/11/24 12:26 pseudoephedrine Allergy Unknown Verified 11/11/24 12:26 [From Sudafed] pseudoephedrine HCl AdvReac Severe Rapid Verified 11/11/24 12:26 [From Sudafed] Heart Rate Surgical - Exam Vital Signs Temp Pulse Resp BP Pulse Ox 97.6 F 82 18 133/71 93 L 11/10/24 11:35 11/10/24 11:35 11/10/24 11:35 11/10/24 11:35 11/10/24 11:35 Results - Labs 11/11/24 03:11 11/11/24 03:11 Abnormal Lab Results - Last 24 Hours (Table) 11/10/24 11/10/24 11/10/24 Range/Units 12:25 12:25 12:25 WBC 13.44 H (4.50-10.00) 10*3/uL Hgb (12.0-15.0) g/dL Hct (37.2-46.3) % Immature Gran # 0.05 H (0.00-0.04) 10*3/uL Neutrophils # 11.28 H (1.80-7.70) 10*3/uL Eosinophils # (0.04-0.35) 10*3/uL APTT 21.1 L (22.0-30.0) sec D-Dimer 13.49 H (<0.60) mg/L FEU Sodium (137-145) mmol/L BUN 19 H (7-17) mg/dL Glucose 210 H (74-99) mg/dL POC Glucose (mg/dL) (70-110) mg/dL Hemoglobin A1c (<=6.0) % Plasma Lactic Acid Bradley (0.7-2.0) mmol/L Total Bilirubin (0.2-1.3) mg/dL AST 222 H (14-36) U/L ALT 87 H (4-34) U/L Troponin I (0.000-0.034) ng/mL Total Protein 6.0 L (6.3-8.2) g/dL Albumin (3.5-5.0) g/dL Procalcitonin (0.02-0.50) ng/mL Ur Specific [place] (1.001-1.035) Ur Leukocyte Esterase (Negative) 11/10/24 11/10/24 11/10/24 Range/Units 12:25 16:15 19:30 WBC (4.50-10.00) 10*3/uL Hgb (12.0-15.0) g/dL Hct (37.2-46.3) % Immature Gran # (0.00-0.04) 10*3/uL Neutrophils # (1.80-7.70) 10*3/uL Eosinophils # (0.04-0.35) 10*3/uL APTT (22.0-30.0) sec D-Dimer (<0.60) mg/L FEU Sodium (137-145) mmol/L BUN (7-17) mg/dL Glucose (74-99) mg/dL POC Glucose (mg/dL) (70-110) mg/dL Hemoglobin A1c (<=6.0) % Plasma Lactic Acid Bradley (0.7-2.0) mmol/L Total Bilirubin (0.2-1.3) mg/dL AST (14-36) U/L ALT (4-34) U/L Troponin I 0.079 H* 0.230 H* 0.356 H* (0.000-0.034) ng/mL Total Protein (6.3-8.2) g/dL Albumin (3.5-5.0) g/dL Procalcitonin (0.02-0.50) ng/mL Ur Specific [place] (1.001-1.035) Ur Leukocyte Esterase (Negative) 11/11/24 11/11/24 11/11/24 Range/Units 00:05 00:05 01:25 WBC (4.50-10.00) 10*3/uL Hgb (12.0-15.0) g/dL Hct (37.2-46.3) % Immature Gran # (0.00-0.04) 10*3/uL Neutrophils # (1.80-7.70) 10*3/uL Eosinophils # (0.04-0.35) 10*3/uL APTT (22.0-30.0) sec D-Dimer (<0.60) mg/L FEU Sodium (137-145) mmol/L BUN (7-17) mg/dL Glucose (74-99) mg/dL POC Glucose (mg/dL) (70-110) mg/dL Hemoglobin A1c (<=6.0) % Plasma Lactic Acid Bradley 4.7 H* (0.7-2.0) mmol/L Total Bilirubin (0.2-1.3) mg/dL AST (14-36) U/L ALT (4-34) U/L Troponin I (0.000-0.034) ng/mL Total Protein (6.3-8.2) g/dL Albumin (3.5-5.0) g/dL Procalcitonin 18.60 H (0.02-0.50) ng/mL Ur Specific [place] 1.036 H (1.001-1.035) Ur Leukocyte Esterase Trace H (Negative) 11/11/24 11/11/24 11/11/24 Range/Units 03:11 03:11 03:11 WBC 11.55 H (4.50-10.00) 10*3/uL Hgb 11.9 L D (12.0-15.0) g/dL Hct 36.0 L (37.2-46.3) % Immature Gran # (0.00-0.04) 10*3/uL Neutrophils # 9.90 H (1.80-7.70) 10*3/uL Eosinophils # 0.00 L (0.04-0.35) 10*3/uL APTT (22.0-30.0) sec D-Dimer (<0.60) mg/L FEU Sodium 133 L (137-145) mmol/L BUN 19 H (7-17) mg/dL Glucose 183 H (74-99) mg/dL POC Glucose (mg/dL) (70-110) mg/dL Hemoglobin A1c 7.2 H (<=6.0) % Plasma Lactic Acid Bradley (0.7-2.0) mmol/L Total Bilirubin 1.4 H (0.2-1.3) mg/dL AST 487 H (14-36) U/L ALT 429 H (4-34) U/L Troponin I (0.000-0.034) ng/mL Total Protein 5.2 L (6.3-8.2) g/dL Albumin 3.1 L (3.5-5.0) g/dL Procalcitonin (0.02-0.50) ng/mL Ur Specific [place] (1.001-1.035) Ur Leukocyte Esterase (Negative) 11/11/24 11/11/24 11/11/24 Range/Units 03:11 06:22 11:16 WBC (4.50-10.00) 10*3/uL Hgb (12.0-15.0) g/dL Hct (37.2-46.3) % Immature Gran # (0.00-0.04) 10*3/uL Neutrophils # (1.80-7.70) 10*3/uL Eosinophils # (0.04-0.35) 10*3/uL APTT (22.0-30.0) sec D-Dimer (<0.60) mg/L FEU Sodium (137-145) mmol/L BUN (7-17) mg/dL Glucose (74-99) mg/dL POC Glucose (mg/dL) 201 H 178 H (70-110) mg/dL Hemoglobin A1c (<=6.0) % Plasma Lactic Acid Bradley 3.5 H* (0.7-2.0) mmol/L Total Bilirubin (0.2-1.3) mg/dL AST (14-36) U/L ALT (4-34) U/L Troponin I (0.000-0.034) ng/mL Total Protein (6.3-8.2) g/dL Albumin (3.5-5.0) g/dL Procalcitonin (0.02-0.50) ng/mL Ur Specific [place] (1.001-1.035) Ur Leukocyte Esterase (Negative) Diabetes panel 11/10/24 11/11/24 11/11/24 Range/Units : 03:11 03:11 Sodium 137 133 L (137-145) mmol/L Potassium 4.4 4.4 (3.5-5.1) mmol/L Chloride 102 102 (98-107) mmol/L Carbon Dioxide 25 22 (22-30) mmol/L BUN 19 H 19 H (7-17) mg/dL Creatinine 0.72 0.70 (0.52-1.04) mg/dL Glucose 210 H 183 H (74-99) mg/dL Hemoglobin A1c 7.2 H (<=6.0) % Calcium 9.3 8.8 (8.4-10.2) mg/dL AST 222 H 487 H (14-36) U/L ALT 87 H 429 H (4-34) U/L Alkaline Phosphatase 83 95 (38-126) U/L Total Protein 6.0 L 5.2 L (6.3-8.2) g/dL Albumin 3.7 3.1 L (3.5-5.0) g/dL Calcium panel 11/10/24 11/11/24 Range/Units : 03:11 Calcium 9.3 8.8 (8.4-10.2) mg/dL Albumin 3.7 3.1 L (3.5-5.0) g/dL Pituitary panel 11/10/24 11/11/24 Range/Units 12: 03:11 Sodium 137 133 L (137-145) mmol/L Potassium 4.4 4.4 (3.5-5.1) mmol/L Chloride 102 102 (98-107) mmol/L Carbon Dioxide 25 22 (22-30) mmol/L BUN 19 H 19 H (7-17) mg/dL Creatinine 0.72 0.70 (0.52-1.04) mg/dL Glucose 210 H 183 H (74-99) mg/dL Calcium 9.3 8.8 (8.4-10.2) mg/dL Adrenal panel 11/10/24 11/11/24 Range/Units 12:25 03:11 Sodium 137 133 L (137-145) mmol/L Potassium 4.4 4.4 (3.5-5.1) mmol/L Chloride 102 102 (98-107) mmol/L Carbon Dioxide 25 22 (22-30) mmol/L BUN 19 H 19 H (7-17) mg/dL Creatinine 0.72 0.70 (0.52-1.04) mg/dL Glucose 210 H 183 H (74-99) mg/dL Calcium 9.3 8.8 (8.4-10.2) mg/dL Total Bilirubin 1.1 1.4 H (0.2-1.3) mg/dL AST 222 H 487 H (14-36) U/L ALT 87 H 429 H (4-34) U/L Alkaline Phosphatase 83 95 (38-126) U/L Total Protein 6.0 L 5.2 L (6.3-8.2) g/dL Albumin 3.7 3.1 L (3.5-5.0) g/dL
--- NOTE | 2024-11-11 14:48 | P.CNPUL ---
History of Present Illness Consult date: 11/11/24 Requesting physician: Funmi Biggs Reason for consult: pneumonia Chief complaint: Nausea, vomiting, diarrhea and passing out episode History of present illness: This is an 79-year-old female with history of irritable bowel syndrome according to her daughter, presented yesterday with an acute episode of nausea vomiting diarrhea, and as she was vomiting patient went unresponsive and developed a syncopal episode. The daughter who was at bedside did not think that she actually truly passed out, but she was noted to quite lethargic, weak, confused sitting at the edge of the toilet and she vomited again. Considering the symptoms, patient was brought into the ER, and had extensive workup since admission. Patient had a CT angiogram of the chest to rule out pulmonary embolism and it showed minimal chronic interstitial changes in the left lower lobe. Patient was noted to have a bit of leukocytosis with WBC count of 11.5 electrolytes were normal, liver enzymes were noted to be elevated, lactic acid was 3.5 AST 487 ALT 429. Chest x-ray was noted to be basically unremarkable no clear-cut evidence of pneumonia on the chest x-ray. Considering her presentation and considering abnormal CT of the chest, this consult was initiated. Patient did not have any recent history of cough wheezing shortness of breath, did not have symptoms to suggest pneumonia but she did have mostly GI symptoms. And according to the daughter it is not unusual for her to have episodes of nausea vomiting and diarrhea. Patient had elevated D-dimer on this admission but she had negative CT angiogram for pulmonary embolism she also had negative venous Doppler for DVT. Review of Systems CONSTITUTIONAL: No fever no chills no weight loss HEENT: Negative CARDIOVASCULAR: Negative PULMONARY: Negative except for occasional cough GASTROINTESTINAL: Nausea vomiting diarrhea as noted in HPI NEUROLOGICAL: No headaches, no weakness, no numbness. HEMATOLOGICAL: No clotting bleeding or bruising GENITOURINARY: Negative y. MUSCULOSKELETAL/RHEUMATOLOGICAL: Negative ENDOCRINE: Denies any polyuria or polydipsia. Past Medical History Past Medical History: Diabetes Mellitus, Hyperlipidemia, Hypertension Additional Past Medical History / Comment(s): arthritis, chronic cough, keratosis, fuch dystrophy rt eye History of Any Multi-Drug Resistant Organisms: None Reported Past Surgical History: Tonsillectomy Additional Past Surgical History / Comment(s): cold knife conization Past Anesthesia/Blood Transfusion Reactions: No Reported Reaction Additional Past Anesthesia/Blood Transfusion Reaction / Comment(s): woke up in dentist office in "trendelenburg position", allergy reaction to novocaine and all the "rochelle" local anesthesia Past Psychological History: No Psychological Hx Reported Smoking Status: Former smoker Past Alcohol Use History: None Reported Past Drug Use History: None Reported - Past Family History Father Family Medical History: Cancer Sister(s) Family Medical History: Cancer Medications and Allergies Home Medications Medication Instructions Recorded Confirmed Type Aspirin 325 mg PO DAILY 01/20/14 12/23/21 History metFORMIN HCL [Glucophage] 1,000 mg PO BID 01/20/14 12/23/21 History Atorvastatin Calcium [Lipitor] 40 mg PO HS 12/23/21 12/23/21 History Cholecalciferol (Vitamin D3) 75 mcg PO DAILY 12/23/21 12/23/21 History [Vitamin D3 (3000 Iu)] Multivitamins, Thera [Multivitamin 1 tab PO DAILY 12/23/21 12/23/21 History (formulary)] lisinopriL [Zestril] 30 mg PO DAILY #30 tab 12/25/21 Rx Aspirin EC [Ecotrin Low Dose] 81 mg PO DAILY 11/10/24 11/10/24 History Cholecalciferol [Vitamin D3 (25 25 mcg PO DAILY 11/10/24 11/10/24 History Mcg = 1000 Iu)] Multivit-Min/Iron/Folic/Lutein 1 tab PO DAILY 11/10/24 11/10/24 History [Centrum Silver Women Tablet] Rosuvastatin Calcium 5 mg PO HS 11/10/24 11/10/24 History lisinopriL [Lisinopril] 30 mg PO HS 11/10/24 11/10/24 History metFORMIN HCL [Glucophage] 1,000 mg PO BID 11/10/24 11/10/24 History prednisoLONE ACETATE 1% OPHTH 1 drop INTRAOCULA RT-Q6H 11/11/24 11/11/24 History [Pred Forte 1%] Allergies Allergy/AdvReac Type Severity Reaction Status Date / Time procaine HCl [From Novocain] Allergy Severe Anaphylaxis Verified 11/11/24 12:26 procaine [From Novocain] Allergy Unknown Verified 11/11/24 12:26 pseudoephedrine Allergy Unknown Verified 11/11/24 12:26 [From Sudafed] pseudoephedrine HCl AdvReac Severe Rapid Verified 11/11/24 12:26 [From [facility]] Heart Rate Physical Exam Vitals: Vital Signs Temp Pulse Pulse Resp BP BP Pulse Ox 11/11/24 13:24 91 17 11/11/24 12:00 99.7 F H 99 17 130/67 93 L 11/11/24 08:30 98.1 F 91 17 108/55 93 L 11/11/24 08:00 91 17 11/11/24 06:27 99.4 F 11/11/24 04:00 102.6 F H 101 H 17 115/56 92 L 11/11/24 02:00 105 H 17 11/11/24 00:00 99.1 F 106 H 17 122/69 94 L 11/10/24 22:53 99.6 F 99 19 109/51 93 L 11/10/24 20:32 100.5 F H 103 H 20 104/48 93 L 11/10/24 16:22 98.1 F 105 H 19 127/66 93 L 11/10/24 15:40 105 H 18 122/64 95 Intake and Output 11/10/24 11/11/24 11/11/24 22:59 06:59 14:59 Output Total 180 200 Balance -180 -200 Output: Urine 100 200 Post Void Residual 80 Other: Voiding Method Bedside Commode Bedside Commode Weight 60 kg GENERAL: Revealed 79-year-old female in no distress, 2 daughters at bedside Head: Atraumatic, normocephalic HEENT: PERRLA, EOMI, anicteric, no neck masses no JVD no stridor CARDIOVASCULAR: Distant S1-S2, no S3 gallop PULMONARY: Very minimal fine crackles at the left base ABDOMEN: Soft nontender no megaly no rebound no guarding MUSCULOSKELETAL: No joint swelling or deformity. EXTREMITIES: No cyanosis, clubbing, or pedal edema. NEUROLOGICAL: Alert oriented x 3 no gross focal deficit SKIN: No rashes. no petechiae. Results - Laboratory Findings CBC and BMP: 11/11/24 03:11 11/11/24 03:11 PT/INR, D-dimer PT 10.7 sec (10.0-12.5) 11/10/24 12:25 INR 1.0 (<1.2) 11/10/24 12:25 D-Dimer 13.49 mg/L FEU (<0.60) H 11/10/24 12:25 Abnormal lab findings: Abnormal Labs 11/10/24 11/10/24 11/10/24 12:25 12:25 12:25 WBC 13.44 H Hgb Hct Immature Gran # 0.05 H Neutrophils # 11.28 H Eosinophils # APTT 21.1 L D-Dimer 13.49 H Sodium BUN 19 H Glucose 210 H POC Glucose (mg/dL) Hemoglobin A1c Plasma Lactic Acid Bradley Total Bilirubin AST 222 H ALT 87 H Troponin I Total Protein 6.0 L Albumin Procalcitonin Ur Specific [place] Ur Leukocyte Esterase 11/10/24 11/10/24 11/10/24 12:25 16:15 19:30 WBC Hgb Hct Immature Gran # Neutrophils # Eosinophils # APTT D-Dimer Sodium BUN Glucose POC Glucose (mg/dL) Hemoglobin A1c Plasma Lactic Acid Bradley Total Bilirubin AST ALT Troponin I 0.079 H* 0.230 H* 0.356 H* Total Protein Albumin Procalcitonin Ur Specific [place] Ur Leukocyte Esterase 11/11/24 11/11/24 11/11/24 00:05 00:05 01:25 WBC Hgb Hct Immature Gran # Neutrophils # Eosinophils # APTT D-Dimer Sodium BUN Glucose POC Glucose (mg/dL) Hemoglobin A1c Plasma Lactic Acid Bradley 4.7 H* Total Bilirubin AST ALT Troponin I Total Protein Albumin Procalcitonin 18.60 H Ur Specific [place] 1.036 H Ur Leukocyte Esterase Trace H 11/11/24 11/11/24 11/11/24 03:11 03:11 03:11 WBC 11.55 H Hgb 11.9 L D Hct 36.0 L Immature Gran # Neutrophils # 9.90 H Eosinophils # 0.00 L APTT D-Dimer Sodium 133 L BUN 19 H Glucose 183 H POC Glucose (mg/dL) Hemoglobin A1c 7.2 H Plasma Lactic Acid Bradley Total Bilirubin 1.4 H AST 487 H ALT 429 H Troponin I Total Protein 5.2 L Albumin 3.1 L Procalcitonin Ur Specific [place] Ur Leukocyte Esterase 11/11/24 11/11/24 11/11/24 03:11 06:22 11:16 WBC Hgb Hct Immature Gran # Neutrophils # Eosinophils # APTT D-Dimer Sodium BUN Glucose POC Glucose (mg/dL) 201 H 178 H Hemoglobin A1c Plasma Lactic Acid Bradley 3.5 H* Total Bilirubin AST ALT Troponin I Total Protein Albumin Procalcitonin Ur Specific [place] Ur Leukocyte Esterase - Diagnostic Findings CT scan - chest: image reviewed (As noted in HPI chronic nonspecific interstitial findings/pneumonitis involving the left lower lobe) Assessment and Plan Assessment: Impression: Acute gastroenteritis with acute transaminitis Possible sepsis with fever and leukocytosis associated with nausea vomiting and diarrhea Possible syncopal episode, emesis induced syncope History of underlying COPD, and the active Type 2 diabetes, on metformin Benign essential hypertension Dyslipidemia Acute hypovolemia secondary to nausea vomiting and diarrhea Possible aspiration pneumonia Recommendation: Agree with present treatment plan Continue IV fluid Continue Zosyn Check procalcitonin level and decide on antibiotics Check urine Legionella antigen Continue GI and DVT prophylaxis Resume home meds suggest holding metformin Discussed her condition with daughters at bedside Will continue to follow Time with Patient: Greater than 30
--- NOTE | 2024-11-11 16:10 | CA ---
Transthoracic Echo Report Name: Pamela De León Age: 79 Gender: F : 1945 Exam Date: 11/11/2024 08:57 Exam Location: [facility] Ht (in): 65 Wt (lb): 132 Ordering Physician: Adrián Aleman MD Attending/Referring Phys: [id number], [employer] Geri Castelan RDCS Procedure CPT: Indications: Chest Pain Cardiac Hx: Technical Quality: Good Contrast 1: Total Dose (mL): Contrast 2: Total Dose (mL): MEASUREMENTS (Male / Female) Normal Values 2D ECHO LV Diastolic Diameter PLAX 4.4 cm 4.2 - 5.9 / 3.9 - 5.3 cm LV Systolic Diameter PLAX 2.9 cm IVS Diastolic Thickness 1.2 cm 0.6 - 1.0 / 0.6 - 0.9 cm LVPW Diastolic Thickness 1.0 cm 0.6 - 1.0 / 0.6 - 0.9 cm LV Relative Wall Thickness 0.5 RV Internal Dim ED PLAX 2.9 cm LA Systolic Diameter LX 3.6 cm 3.0 - 4.0 / 2.7 - 3.8 cm LV Diastolic Volume MOD 4C 71.1 cm??? LV Systolic Volume MOD 4C 34.6 cm??? LV Ejection Fraction MOD 4C 51.3 % LV Cardiac Index MOD 4C 2002.2 cm???/min???m??? LV Diastolic Length 4C 7.4 cm LV Systolic Length 4C 6.6 cm LV Diastolic Volume MOD 2C 78.9 cm??? LV Systolic Volume MOD 2C 31.9 cm??? LV Ejection Fraction MOD 2C 59.6 % LV Cardiac Index MOD 2C 2576.7 cm???/min???m??? LV Diastolic Length 2C 7.5 cm LV Systolic Length 2C 5.8 cm LA Volume 39.0 cm??? 18 - 58 / 22 - 52 cm??? LA Volume Index 23.5 cm???/m??? 16 - 28 cm???/m??? M-MODE Aortic Root Diameter MM 3.2 cm AV Cusp Separation MM 2.1 cm DOPPLER AV Peak Velocity 189.9 cm/s AV Peak Gradient 14.4 mmHg AI Peak Velocity 351.7 cm/s AI Peak Gradient 49.5 mmHg AI Pressure Half Time 383.8 ms MV Area PHT 3.6 cm??? Mitral E Point Velocity 118.2 cm/s Mitral A Point Velocity 108.5 cm/s Mitral E to A Ratio 1.1 MV Deceleration Time 210.5 ms TR Peak Velocity 270.6 cm/s TR Peak Gradient 29.3 mmHg Right Ventricular Systolic Press 37.4 mmHg FINDINGS Left Ventricle Left ventricular ejection fraction is estimated at 55-60 %. Left ventricular cavity size normal. Mildly increased septal wall thickness. Normal left ventricular wall motion. Right Ventricle Normal right ventricular size. Mild pulmonary hypertension. Right Atrium Normal right atrial size. No right atrial thrombus or mass seen. Left Atrium Normal left atrial size. No left atrial thrombus or mass present. Mitral Valve Structurally normal mitral valve. Aortic Valve Trileaflet aortic valve. Thickened aortic valve without stenosis. Mild aortic regurgitation. Tricuspid Valve Structurally normal tricuspid valve. Mild tricuspid regurgitation. Pulmonic Valve Pulmonic valve not well visualized. No pulmonic regurgitation. Pericardium No pericardial effusion. Aorta Normal size aortic root and proximal ascending aorta. CONCLUSIONS Left ventricular ejection fraction 55 to 60% RVSP 37 Mild aortic regurgitation Mild tricuspid regurgitation Previewed by: Dr. Malcom Cha DO (Electronically Signed) Final Date: 11 Nov 2024 16:09
[2024-11-11 16:25] LABS: Glucose,Whole Blood 164 mg/dL (70-110)
--- NOTE | 2024-11-11 18:36 | US ---
EXAMINATION TYPE: US abdomen limited DATE OF EXAM: 11/11/2024 COMPARISON: Ultrasound 12/22/2021. CT. CLINICAL INDICATION: Female, 79 years old with history of suspected acute juan; Hx cholecystitis TECHNIQUE: Grayscale and color Doppler imaging of the right upper quadrant was performed. FINDINGS: EXAM MEASUREMENTS: Liver Length: 17.3 cm Gallbladder Wall: 0.4 cm CBD: 0.9 cm Right Kidney: 10.2x4.7x4.7 cm POACHER OPERATOR NOTES: Pancreas: Tail obscured by overlying bowel gas Liver: wnl, measures at upper limits Gallbladder: Wall thickening and fat stranding seen on CT yesterday difficult to appreciate. Posterior wall measures up to 4mm. Evidence for sonographic Barton's sign: No CBD: dilated to 0.9cm Right Kidney: No hydronephrosis or masses seen exam limited by bowel gas and patient difficulty holding respiration. IMPRESSION: Prominent gallbladder wall size at the upper limits of normal. Negative sonographic Barton's sign. No evidence for acute process. Findings seen dating back to priors back to 2021. Consider HIDA scan for confirmation for chronic cholecystitis [facility], , 11/11/2024 6:34 PM
[2024-11-11 20:09] LABS: Glucose,Whole Blood 184 mg/dL (70-110)
[2024-11-11] MEDS: prednisoLONE ACETATE 1% OPHTH DROPS 5 ML BTL RIGHT EYE SCH (20:21)
[2024-11-11] MEDS: NICOTINE 14MG/24HR PATCH TRANSDERM SCH (21:38)
--- NOTE | 2024-11-11 21:49 | P.CONS ---
History of Present Illness - Reason for Consult Consult date: 11/11/24 Sepsis Requesting physician: Adrián Stewart Sheet - Chief Complaint Weakness and passed out x 1 day - History of Present Illness Patient is a 79-year-old female with a past medical history significant for diabetes mellitus hypertension hyperlipidemia, patient has been brought into the hospital after apparently patient did have a syncopal episode episode happened when the patient was in the bathroom and she felt like he was about to pass out patient did not have any fall or injury to the head was complained of mild tightness in her chest patient denies having any headache or URI symptoms no shortness of breath or cough did have some nausea but no vomiting no abdominal pain no diarrhea with the symptoms the patient has been brought into the hospital on arrival to the ER patient was afebrile subsequently she did spike a fever of 102.6 F this morning patient was tachycardic with a heart rate of 106 patient was not hypotensive mildly hypoxic currently on a 2 L nasal cannula oxygen she did have a total of 13.44 with a left shift creatinine 0.72 electrolytes has been normal troponin elevated liver enzymes elevated UA has been negative influenza RSV COVID testing was negative patient did have a CT angiogram of the chest did not show any PE mild chronic interstitial changes mild aneurysmal dilatation of the descending thoracic aorta patient did have abdominal pelvis CT partially contracted gallbladder with 5 mm wall thickness and periprostatic mild fat stranding and no ductal dilatation patient is currently being treated with Zosyn infectious disease was consulted regarding sepsis Review of Systems Positive point and negatives has been mentioned in the HPI, complete review of systems was performed and all other systems are negative Past Medical History Past Medical History: Diabetes Mellitus, Hyperlipidemia, Hypertension History of Any Multi-Drug Resistant Organisms: None Reported Past Anesthesia/Blood Transfusion Reactions: No Reported Reaction Past Psychological History: No Psychological Hx Reported Smoking Status: Former smoker Past Alcohol Use History: None Reported Past Drug Use History: None Reported - Past Family History Father Family Medical History: Cancer Sister(s) Family Medical History: Cancer Medications and Allergies Home Medications Medication Instructions Recorded Confirmed Type Aspirin 325 mg PO DAILY 01/20/14 12/23/21 History metFORMIN HCL [Glucophage] 1,000 mg PO BID 01/20/14 12/23/21 History Atorvastatin Calcium [Lipitor] 40 mg PO HS 12/23/21 12/23/21 History Cholecalciferol (Vitamin D3) 75 mcg PO DAILY 12/23/21 12/23/21 History [Vitamin D3 (3000 Iu)] Multivitamins, Thera [Multivitamin 1 tab PO DAILY 12/23/21 12/23/21 History (formulary)] lisinopriL [Zestril] 30 mg PO DAILY #30 tab 12/25/21 Rx Aspirin EC [Ecotrin Low Dose] 81 mg PO DAILY 11/10/24 11/10/24 History Cholecalciferol [Vitamin D3 (25 25 mcg PO DAILY 11/10/24 11/10/24 History Mcg = 1000 Iu)] Multivit-Min/Iron/Folic/Lutein 1 tab PO DAILY 11/10/24 11/10/24 History [Centrum Silver Women Tablet] Rosuvastatin Calcium 5 mg PO HS 11/10/24 11/10/24 History lisinopriL [Lisinopril] 30 mg PO HS 11/10/24 11/10/24 History metFORMIN HCL [Glucophage] 1,000 mg PO BID 11/10/24 11/10/24 History prednisoLONE ACETATE 1% OPHTH 1 drop INTRAOCULA RT-Q6H 11/11/24 11/11/24 History [Pred Forte 1%] Allergies Allergy/AdvReac Type Severity Reaction Status Date / Time procaine HCl [From Novocain] Allergy Severe Anaphylaxis Verified 11/11/24 12:26 procaine [From Novocain] Allergy Unknown Verified 11/11/24 12:26 pseudoephedrine Allergy Unknown Verified 11/11/24 12:26 [From [facility]] pseudoephedrine HCl AdvReac Severe Rapid Verified 11/11/24 12:26 [From [facility]] Heart Rate Physical Exam Vitals: Vital Signs Temp Pulse Pulse Resp BP BP Pulse Ox 11/11/24 08:30 98.1 F 91 17 108/55 93 L 11/11/24 06:27 99.4 F 11/11/24 04:00 102.6 F H 101 H 17 115/56 92 L 11/11/24 02:00 105 H 17 11/11/24 00:00 99.1 F 106 H 17 122/69 94 L 11/10/24 22:53 99.6 F 99 19 109/51 93 L 11/10/24 20:32 100.5 F H 103 H 20 104/48 93 L 11/10/24 16:22 98.1 F 105 H 19 127/66 93 L 11/10/24 15:40 105 H 18 122/64 95 11/10/24 11:35 97.6 F 82 18 133/71 93 L Intake and Output 11/10/24 11/11/24 11/11/24 22:59 06:59 14:59 Output Total 180 Balance -180 Output: Urine 100 Post Void Residual 80 Other: Voiding Method Bedside Commode Weight 60 kg GENERAL DESCRIPTION: Elderly female lying in bed, no distress. No tachypnea or accessory muscle of respiration use. HEENT: Shows Pallor , no scleral icterus. Oral mucous membrane is dry. NECK: Trachea central, no thyromegaly. LUNGS: Unlabored breathing. Clear to auscultation anteriorly. HEART: S1, S2, regular rate and rhythm. No loud murmur ABDOMEN: Soft, no tenderness , guarding or rigidity, no organomegaly EXTREMITIES: No edema of feet. SKIN: No rash, no masses palpable. NEUROLOGICAL: The patient is awake, alert, oriented x3, mood and affect normal. Results CBC & Chem 7: 11/11/24 03:11 11/11/24 03:11 Labs: Abnormal Lab Results - Last 24 Hours (Table) 11/10/24 11/10/24 11/10/24 Range/Units 12:25 12:25 12:25 WBC 13.44 H (4.50-10.00) 10*3/uL Hgb (12.0-15.0) g/dL Hct (37.2-46.3) % Immature Gran # 0.05 H (0.00-0.04) 10*3/uL Neutrophils # 11.28 H (1.80-7.70) 10*3/uL Eosinophils # (0.04-0.35) 10*3/uL APTT 21.1 L (22.0-30.0) sec D-Dimer 13.49 H (<0.60) mg/L FEU Sodium (137-145) mmol/L BUN 19 H (7-17) mg/dL Glucose 210 H (74-99) mg/dL POC Glucose (mg/dL) (70-110) mg/dL Plasma Lactic Acid Bradley (0.7-2.0) mmol/L Total Bilirubin (0.2-1.3) mg/dL AST 222 H (14-36) U/L ALT 87 H (4-34) U/L Troponin I (0.000-0.034) ng/mL Total Protein 6.0 L (6.3-8.2) g/dL Albumin (3.5-5.0) g/dL Procalcitonin (0.02-0.50) ng/mL Ur Specific [place] (1.001-1.035) Ur Leukocyte Esterase (Negative) 11/10/24 11/10/24 11/10/24 Range/Units 12:25 16:15 19:30 WBC (4.50-10.00) 10*3/uL Hgb (12.0-15.0) g/dL Hct (37.2-46.3) % Immature Gran # (0.00-0.04) 10*3/uL Neutrophils # (1.80-7.70) 10*3/uL Eosinophils # (0.04-0.35) 10*3/uL APTT (22.0-30.0) sec D-Dimer (<0.60) mg/L FEU Sodium (137-145) mmol/L BUN (7-17) mg/dL Glucose (74-99) mg/dL POC Glucose (mg/dL) (70-110) mg/dL Plasma Lactic Acid Bradley (0.7-2.0) mmol/L Total Bilirubin (0.2-1.3) mg/dL AST (14-36) U/L ALT (4-34) U/L Troponin I 0.079 H* 0.230 H* 0.356 H* (0.000-0.034) ng/mL Total Protein (6.3-8.2) g/dL Albumin (3.5-5.0) g/dL Procalcitonin (0.02-0.50) ng/mL Ur Specific [place] (1.001-1.035) Ur Leukocyte Esterase (Negative) 11/11/24 11/11/24 11/11/24 Range/Units 00:05 00:05 01:25 WBC (4.50-10.00) 10*3/uL Hgb (12.0-15.0) g/dL Hct (37.2-46.3) % Immature Gran # (0.00-0.04) 10*3/uL Neutrophils # (1.80-7.70) 10*3/uL Eosinophils # (0.04-0.35) 10*3/uL APTT (22.0-30.0) sec D-Dimer (<0.60) mg/L FEU Sodium (137-145) mmol/L BUN (7-17) mg/dL Glucose (74-99) mg/dL POC Glucose (mg/dL) (70-110) mg/dL Plasma Lactic Acid Bradley 4.7 H* (0.7-2.0) mmol/L Total Bilirubin (0.2-1.3) mg/dL AST (14-36) U/L ALT (4-34) U/L Troponin I (0.000-0.034) ng/mL Total Protein (6.3-8.2) g/dL Albumin (3.5-5.0) g/dL Procalcitonin 18.60 H (0.02-0.50) ng/mL Ur Specific [place] 1.036 H (1.001-1.035) Ur Leukocyte Esterase Trace H (Negative) 11/11/24 11/11/24 11/11/24 Range/Units 03:11 03:11 03:11 WBC 11.55 H (4.50-10.00) 10*3/uL Hgb 11.9 L D (12.0-15.0) g/dL Hct 36.0 L (37.2-46.3) % Immature Gran # (0.00-0.04) 10*3/uL Neutrophils # 9.90 H (1.80-7.70) 10*3/uL Eosinophils # 0.00 L (0.04-0.35) 10*3/uL APTT (22.0-30.0) sec D-Dimer (<0.60) mg/L FEU Sodium 133 L (137-145) mmol/L BUN 19 H (7-17) mg/dL Glucose 183 H (74-99) mg/dL POC Glucose (mg/dL) (70-110) mg/dL Plasma Lactic Acid Bradley 3.5 H* (0.7-2.0) mmol/L Total Bilirubin 1.4 H (0.2-1.3) mg/dL AST 487 H (14-36) U/L ALT 429 H (4-34) U/L Troponin I (0.000-0.034) ng/mL Total Protein 5.2 L (6.3-8.2) g/dL Albumin 3.1 L (3.5-5.0) g/dL Procalcitonin (0.02-0.50) ng/mL Ur Specific [place] (1.001-1.035) Ur Leukocyte Esterase (Negative) 11/11/24 Range/Units 06:22 WBC (4.50-10.00) 10*3/uL Hgb (12.0-15.0) g/dL Hct (37.2-46.3) % Immature Gran # (0.00-0.04) 10*3/uL Neutrophils # (1.80-7.70) 10*3/uL Eosinophils # (0.04-0.35) 10*3/uL APTT (22.0-30.0) sec D-Dimer (<0.60) mg/L FEU Sodium (137-145) mmol/L BUN (7-17) mg/dL Glucose (74-99) mg/dL POC Glucose (mg/dL) 201 H (70-110) mg/dL Plasma Lactic Acid Bradley (0.7-2.0) mmol/L Total Bilirubin (0.2-1.3) mg/dL AST (14-36) U/L ALT (4-34) U/L Troponin I (0.000-0.034) ng/mL Total Protein (6.3-8.2) g/dL Albumin (3.5-5.0) g/dL Procalcitonin (0.02-0.50) ng/mL Ur Specific [place] (1.001-1.035) Ur Leukocyte Esterase (Negative) Assessment and Plan (1) Acute cholecystitis Current Visit: Yes Status: Acute Code(s): K81.0 - ACUTE CHOLECYSTITIS SNOMED Code(s): 75047475 (2) Sepsis Current Visit: Yes Status: Acute Code(s): A41.9 - SEPSIS, UNSPECIFIED ORGANISM SNOMED Code(s): 14390166 Plan: 1patient presented to hospital with sepsis in this patient who did have fever tachycardia elevated white count source is likely acute cholecystitis with significant abnormality seen on the CT patient also have elevated liver enzymes and will need to cover for the enteric gram-negative to be the likely pathogen 2-patient will be treated with Zosyn 3.375 grams every 8 hours while waiting for the workup to be completed Multiple family members at bedside question answered We will follow on clinical condition and cultures to further adjust medication if needed Thank you for this consultation we will follow the patient along with you Dictation was produced using [employer] dictation software. please excuse any grammatical, word or spelling errors. Time with Patient: Greater than 30
[2024-11-12 06:02] LABS: Glucose,Whole Blood 148 mg/dL (70-110)
[2024-11-12 08:18] LABS: Basophils # (A) 0.04 10*3/uL (0.00-0.10); Basophils % (A) 0.5 %; Eosinophils # (A) 0.07 10*3/uL (0.04-0.35); Eosinophils % (A) 0.9 %; HCT 29.4 % (37.2-46.3); Lymphocytes # (A) 1.02 10*3/uL (0.90-5.00); Lymphocytes % (A) 12.5 %; MCH 29.9 pg (27.0-32.0); MCV 87.8 fL (80.0-97.0); Mean Platelet Volume 11.9 fL (9.5-12.2); Monocytes # (A) 0.57 10*3/uL (0.20-1.00); Neutrophils # (A) 6.44 10*3/uL (1.80-7.70); Neutrophils % (A) 78.9 %; Platelet Count 122 10*3/uL (140-440); RBC 3.35 10*6/uL (4.10-5.20); RDW 13.5 % (11.5-14.5); WBC 8.16 10*3/uL (4.50-10.00)
[2024-11-12 08:20] LABS: ALT 186 U/L (4-34); AST 92 U/L (14-36); African American GFR (CKD) >90 (>60 ml/min/1.73 sqM); Albumin 2.2 g/dL (3.5-5.0); Alkaline Phosphatase 68 U/L (38-126); Anion Gap 4 mmol/L; Blood Urea Nitrogen 9 mg/dL (7-17); Calcium 6.9 mg/dL (8.4-10.2); Carbon Dioxide 21 mmol/L (22-30); Chloride 111 mmol/L (98-107); Glucose 122 mg/dL (74-99); Non-African American GFR(CKD) >90 (>60 ml/min/1.73 sqM); Potassium 2.9 mmol/L (3.5-5.1); Sodium 136 mmol/L (137-145); Total Bilirubin 1.1 mg/dL (0.2-1.3); Total Protein 4.1 g/dL (6.3-8.2)
[2024-11-12] MEDS: PANTOPRAZOLE 40 MG TABLET PO SCH (08:52)
[2024-11-12] MEDS ORDERED: Potassium Replacement Protocol 1 EACH MISC MISCELLANE PRN (09:10)
[2024-11-12] MEDS: POTASSIUM CHLORIDE ER 20 MEQ TAB.ER PO SCH (10:08)
[2024-11-12 11:13] LABS: Glucose,Whole Blood 167 mg/dL (70-110)
[2024-11-12] MEDS ORDERED: lisinopriL 20 MG TAB PO SCH (11:15)
[2024-11-12] MEDS: lisinopriL 10 MG TAB PO SCH (11:21)
--- NOTE | 2024-11-12 11:30 | P.PN ---
Subjective Progress Note Date: 11/12/24 This is a pleasant 79 years old female with past medical history as below Presents because patient was found in the toilet unresponsive and vomited on her close. Information were obtained with the help of the daughter at bedside The daughter does not think that the patient was passed out, she she was very lethargic she was very weak but no confusion she was sitting in the toilet and vomited on her close. The daughter does not think she had syncope. The patient however denies chest pain or dyspnea. No abdominal pain however she had loose bowel movement this morning about 3-4 times However patient was complaining from the heartburn in the middle of her chest. She denies dysuria or urgency she has little dry cough. No headache dizziness weakness or numbness She quit smoking, recently no alcohol or illicit drugs. And admission her blood pressure was stable but tightly becoming more low. Late r on she developed fever of 100.5. She has mild leukocytosis of 13.4. Liver enzymes mildly elevated. Troponin started trending up CTA of the chest showed no PE or airspace consolidation although D-dimer was elevated more than 13,000 CT of the brain is negative for acute process. Chest x-ray showing COPD with no acute consolidation. EKG showing sinus rhythm about [address]-T changes. Blood culture requested. CT of the abdomen and pelvis also requested Discussed the case with the staff who contacted spa manager/esthetician on-call who recommends to hold on heparin drip for now On 11/11/2024 patient is alert and oriented x 3. CT of abdomen and pelvis completed showing pneumonia type interstitial infiltrates with few small areas of consolidation on the left lower lung base a partially contracted gallbladder with increased wall thickness and pericholecystic mild fat stranding and asymmetric thickening of the left adrenal gland. At this time surgical services and infectious disease services consulted will also consult pulmonary services with concerns of aspiration pneumonia patient reports improvement with overall symptoms. Awaiting input from consulting providers. Venous Doppler negative for DVT. Current vital signs temp 98.1, heart rate 91, respiratory rate 17, blood pressure 108/55 with a pulse ox of 93% on 2 L On 11/12/2024 patient was seen and examined on the medical floor she is alert and oriented x 3 in no apparent distress there is no fever or chills no headache or dizziness no chest pain no shortness of breath no cough no nausea or vomiting no abdominal pain no diarrhea and no urinary symptoms. Patient is improving gradually, hemoglobin is down to 10.4, will check stools for Hemoccult blood, potassium is low at 2.9 will replace. Surgery are recommending MRCP, however patient is refusing due to claustrophobia, will continue to monitor closely. Objective - Vital Signs Vital signs: Vital Signs Temp 97.9 F 11/12/24 11:08 Pulse 81 11/12/24 11:08 Resp 18 11/12/24 11:08 BP 170/76 11/12/24 11:08 Pulse Ox 96 11/12/24 11:08 FiO2 Intake & Output 11/11/24 11/12/24 11/12/24 18:59 06:59 18:59 Intake Total 240 130 Output Total 200 Balance -200 240 130 Weight 60.5 kg Intake: IV 10 Invasive Line 1 10 Oral 240 120 Output: Urine 200 Other: Voiding Method Bedside Commode Bedside Commode Bedside Commode # Voids 1 - Exam Head normocephalic Neck supple Lungs clear to auscultation bilaterally no wheezing or crackles Heart regular rate and rhythm S1-S2, no rub or gallop Abdomen is soft nontender nondistended positive bowel sounds no hepatosplenomegaly Extremities no edema Neuro alert and orientated to 3 - Labs CBC & Chem 7: 11/12/24 06:43 11/12/24 06:43 Labs: Abnormal Lab Results - Last 24 Hours (Table) 11/11/24 11/11/24 11/12/24 Range/Units 16:24 20:07 06:01 RBC (4.10-5.20) 10*6/uL Hgb (12.0-15.0) g/dL Hct (37.2-46.3) % Plt Count (140-440) 10*3/uL Sodium (137-145) mmol/L Potassium (3.5-5.1) mmol/L Chloride (98-107) mmol/L Carbon Dioxide (22-30) mmol/L Creatinine (0.52-1.04) mg/dL Glucose (74-99) mg/dL POC Glucose (mg/dL) 164 H 184 H 148 H (70-110) mg/dL Calcium (8.4-10.2) mg/dL AST (14-36) U/L ALT (4-34) U/L Total Protein (6.3-8.2) g/dL Albumin (3.5-5.0) g/dL 11/12/24 11/12/24 11/12/24 Range/Units 06:43 06:43 11:11 RBC 3.35 L (4.10-5.20) 10*6/uL Hgb 10.0 L D (12.0-15.0) g/dL Hct 29.4 L (37.2-46.3) % Plt Count 122 L (140-440) 10*3/uL Sodium 136 L (137-145) mmol/L Potassium 2.9 L (3.5-5.1) mmol/L Chloride 111 H (98-107) mmol/L Carbon Dioxide 21 L (22-30) mmol/L Creatinine 0.48 L (0.52-1.04) mg/dL Glucose 122 H (74-99) mg/dL POC Glucose (mg/dL) 167 H (70-110) mg/dL Calcium 6.9 L (8.4-10.2) mg/dL AST 92 H (14-36) U/L ALT 186 H (4-34) U/L Total Protein 4.1 L (6.3-8.2) g/dL Albumin 2.2 L (3.5-5.0) g/dL Microbiology - Last 24 Hours (Table) 11/11/24 00:05 Blood Culture - Preliminary Blood Assessment and Plan Assessment: 1. Sepsis with fever and leukocytosis 2. Nausea and vomiting 3. Possible aspiration pneumonia 4. Acute cholecystitis 5. Elevated troponin 6. Adrenal gland inflammation 7. Elevated liver enzymes 8. History of COPD 9. History of diabetes mellitus 10. History of essential hypertension 11. History of hyperlipidemia DVT prophylaxis heparin. GI prophylaxis Protonix Cardiology, surgical, infectious disease and pulmonary services consulted 2D echo has been ordered Patient started on IV Zosyn Repeat labs ordered Blood culture ordered
[2024-11-12 11:38] LABS: Ovalocytes Present
--- NOTE | 2024-11-12 12:50 | P.PN ---
Subjective HISTORY OF PRESENT ILLNESS: This is a 79-year-old female with a past medical history significant for hypertension, hyperlipidemia, diabetes, and syncope. Patient does not follow with a weaver apprentice. We have been asked to see the patient in consultation for chest pain. Patient examined at the bedside. Patient's daughter is at the bedside. She states yesterday patient's blood pressure was elevated at home with a reading of 60/40. She reports she has been febrile at home. She reports having nausea vomiting, diarrhea at home. She states yesterday she had some pain in her shoulder blades as well. She reports a cough that started yesterd ay. She denies having any chest pain or pressure. The daughter states that her sister found her " semiunconscious" yesterday at home. DIAGNOSTICS: - EKG reveals sinus mechanism with no signs of acute ischemia. - Chest xray COPD. No signs of acute ischemia. - Laboratory data: WBC 11.5. Hemoglobin 11.9. Platelet count 152. Sodium 133. Potassium 4.4. BUN 19. Creatinine 0.70. Lactic acid 3.5. Bilirubin 1.4. AST 487. ALT 429. Troponin 0.079. 0.230. 0.356. Procalcitonin 18.60. - Current home cardiac medications include rosuvastatin 5 mg at night, aspirin 81 mg daily, on lisinopril 30 mg daily. - No previous echocardiogram, stress test, or cardiac catheterization available in EMR for review 11/12/2024 Patient examined this morning at bedside. Patient currently denies chest pain or pressure. She denies shortness of breath. Vital signs are stable. Blood pressure elevated in the 160s. Echocardiogram performed revealing ejection fraction 55 to 60%, mild pulmonary hypertension, mild aortic regurgitation, mild tricuspid regurgitation. PHYSICAL EXAM: VITAL SIGNS: Reviewed. GENERAL: Well-developed in no acute distress. HEENT: Head is normocephalic. Pupils are equal, round. Sclerae anicteric. Mucous membranes of the mouth are moist. Neck supple. No JVD or thyromegaly LUNGS: Respirations even and unlabored. Lungs essentially clear to auscultation bilaterally. HEART: Regular rate and rhythm. S1 and S2 heard. ABDOMEN: Soft. Nondistended. Nontender. EXTREMITIES: Normal range of motion. No clubbing or cyanosis. Peripheral pulses intact. No lower extremity edema NEUROLOGIC: Awake and alert. Oriented x 3. ASSESSMENT: Sepsis Nausea, vomiting, diarrhea Acute cholecystitis Elevated troponins, type II [place] secondary to sepsis, no evidence of acute coronary syndrome Transaminitis Lactic acidosis History of hypertension History of hyperlipidemia History of diabetes History of syncope PLAN: Patient's troponin elevation likely secondary to sepsis with no evidence of acute coronary syndrome Resume lisinopril. Continue to monitor blood pressure Continue to hold statin therapy secondary to transaminitis Continue antibiotics per infectious disease Further recommendations pending patient course Nurse practitioner note has been reviewed by physician. Signing provider agrees with the documented findings, assessment, and plan of care documented by [employer] as a scribe. Objective - Vital Signs Vital signs: Vital Signs Temp 97.9 F 11/12/24 11:08 Pulse 81 11/12/24 11:08 Resp 18 11/12/24 11:08 BP 170/76 11/12/24 11:08 Pulse Ox 96 11/12/24 11:08 FiO2 Intake & Output 11/11/24 11/12/24 11/12/24 18:59 06:59 18:59 Intake Total 240 130 Output Total 200 Balance -200 240 130 Weight 60.5 kg Intake: IV 10 Invasive Line 1 10 Oral 240 120 Output: Urine 200 Other: Voiding Method Bedside Commode Bedside Commode Bedside Commode # Voids 1 - Labs CBC & Chem 7: 11/12/24 06:43 11/12/24 06:43 Labs: Abnormal Lab Results - Last 24 Hours (Table) 11/11/24 11/11/24 11/12/24 Range/Units 16:24 20:07 06:01 RBC (4.10-5.20) 10*6/uL Hgb (12.0-15.0) g/dL Hct (37.2-46.3) % Plt Count (140-440) 10*3/uL Sodium (137-145) mmol/L Potassium (3.5-5.1) mmol/L Chloride (98-107) mmol/L Carbon Dioxide (22-30) mmol/L Creatinine (0.52-1.04) mg/dL Glucose (74-99) mg/dL POC Glucose (mg/dL) 164 H 184 H 148 H (70-110) mg/dL Calcium (8.4-10.2) mg/dL AST (14-36) U/L ALT (4-34) U/L Total Protein (6.3-8.2) g/dL Albumin (3.5-5.0) g/dL 11/12/24 11/12/24 11/12/24 Range/Units 06:43 06:43 11:11 RBC 3.35 L (4.10-5.20) 10*6/uL Hgb 10.0 L D (12.0-15.0) g/dL Hct 29.4 L (37.2-46.3) % Plt Count 122 L (140-440) 10*3/uL Sodium 136 L (137-145) mmol/L Potassium 2.9 L (3.5-5.1) mmol/L Chloride 111 H (98-107) mmol/L Carbon Dioxide 21 L (22-30) mmol/L Creatinine 0.48 L (0.52-1.04) mg/dL Glucose 122 H (74-99) mg/dL POC Glucose (mg/dL) 167 H (70-110) mg/dL Calcium 6.9 L (8.4-10.2) mg/dL AST 92 H (14-36) U/L ALT 186 H (4-34) U/L Total Protein 4.1 L (6.3-8.2) g/dL Albumin 2.2 L (3.5-5.0) g/dL Microbiology - Last 24 Hours (Table) 11/11/24 00:05 Blood Culture - Preliminary Blood
--- NOTE | 2024-11-12 13:22 | P.PN ---
Subjective Progress Note Date: 11/12/24 Principal diagnosis: Acute gastroenteritis possible aspiration pneumonia This is an 79-year-old female with history of irritable bowel syndrome according to her daughter, presented yesterday with an acute episode of nausea vomiting diarrhea, and as she was vomiting patient went unresponsive and developed a syncopal episode. The daughter who was at bedside did not think that she actually truly passed out, but she was noted to quite lethargic, weak, confused sitting at the edge of the toilet and she vomited again. Considering the symptoms, patient was brought into the ER, and had extensive workup since admission. Patient had a CT angiogram of the chest to rule out pulmonary embolism and it showed minimal chronic interstitial changes in the left lower lobe. Patient was noted to have a bit of leukocytosis with WBC count of 11.5 electrolytes were normal, liver enzymes were noted to be elevated, lactic acid was 3.5 AST 487 ALT 429. Chest x-ray was noted to be basically unremarkable no clear-cut evidence of pneumonia on the chest x-ray. Considering her presentati on and considering abnormal CT of the chest, this consult was initiated. Patient did not have any recent history of cough wheezing shortness of breath, did not have symptoms to suggest pneumonia but she did have mostly GI symptoms. And according to the daughter it is not unusual for her to have episodes of nausea vomiting and diarrhea. Patient had elevated D-dimer on this admission but she had negative CT angiogram for pulmonary embolism she also had negative venous Doppler for DVT. Patient was seen today on 11/12/2024, doing great, asymptomatic, hardly any pulmonary symptoms, no cough no wheezing no shortness of breath. No further episodes of nausea vomiting or diarrhea. Labs were reviewed she had low potassium of 2.9 otherwise the rest of the labs were unremarkable CBC was normal hemoglobin is 10, liver enzymes are improving ALT down to 186 and alkaline phosphatase is 68 AST is 92 Objective - Vital Signs Vital signs: Vital Signs Temp 97.9 F 11/12/24 11:08 Pulse 81 11/12/24 11:08 Resp 18 11/12/24 11:08 BP 170/76 11/12/24 11:08 Pulse Ox 96 11/12/24 11:08 FiO2 Intake & Output 11/11/24 11/12/24 11/12/24 18:59 06:59 18:59 Intake Total 240 130 Output Total 200 Balance -200 240 130 Weight 60.5 kg Intake: IV 10 Invasive Line 1 10 Oral 240 120 Output: Urine 200 Other: Voiding Method Bedside Commode Bedside Commode Bedside Commode # Voids 1 - Exam GENERAL: Revealed 79-year-old female in no distress, on 2 L nasal cannula, O2 sat is 96% Head: Atraumatic, normocephalic HEENT: PERRLA, EOMI, anicteric, no neck masses no JVD no stridor CARDIOVASCULAR: Distant S1-S2, no S3 gallop PULMONARY: Clear bilaterally no crackles rhonchi or wheezes ABDOMEN: Soft nontender no megaly no rebound no guarding MUSCULOSKELETAL: No joint swelling or deformity. EXTREMITIES: No cyanosis, clubbing, or pedal edema. NEUROLOGICAL: Alert oriented x 3 no gross focal deficit SKIN: No rashes. no petechiae. - Labs CBC & Chem 7: 11/12/24 06:43 11/12/24 06:43 Labs: Abnormal Lab Results - Last 24 Hours (Table) 11/11/24 11/11/24 11/12/24 Range/Units 16:24 20:07 06:01 RBC (4.10-5.20) 10*6/uL Hgb (12.0-15.0) g/dL Hct (37.2-46.3) % Plt Count (140-440) 10*3/uL Sodium (137-145) mmol/L Potassium (3.5-5.1) mmol/L Chloride (98-107) mmol/L Carbon Dioxide (22-30) mmol/L Creatinine (0.52-1.04) mg/dL Glucose (74-99) mg/dL POC Glucose (mg/dL) 164 H 184 H 148 H (70-110) mg/dL Calcium (8.4-10.2) mg/dL AST (14-36) U/L ALT (4-34) U/L Total Protein (6.3-8.2) g/dL Albumin (3.5-5.0) g/dL 11/12/24 11/12/24 11/12/24 Range/Units 06:43 06:43 11:11 RBC 3.35 L (4.10-5.20) 10*6/uL Hgb 10.0 L D (12.0-15.0) g/dL Hct 29.4 L (37.2-46.3) % Plt Count 122 L (140-440) 10*3/uL Sodium 136 L (137-145) mmol/L Potassium 2.9 L (3.5-5.1) mmol/L Chloride 111 H (98-107) mmol/L Carbon Dioxide 21 L (22-30) mmol/L Creatinine 0.48 L (0.52-1.04) mg/dL Glucose 122 H (74-99) mg/dL POC Glucose (mg/dL) 167 H (70-110) mg/dL Calcium 6.9 L (8.4-10.2) mg/dL AST 92 H (14-36) U/L ALT 186 H (4-34) U/L Total Protein 4.1 L (6.3-8.2) g/dL Albumin 2.2 L (3.5-5.0) g/dL Microbiology - Last 24 Hours (Table) 11/11/24 00:05 Blood Culture - Preliminary Blood Assessment and Plan Assessment: Impression:Acute gastroenteritis with acute transaminitis Possible sepsis with fever and leukocytosis associated with nausea vomiting and diarrhea Possible syncopal episode, emesis induced syncope History of underlying COPD, and the active Type 2 diabetes, on metformin Benign essential hypertension Dyslipidemia Acute hypovolemia secondary to nausea vomiting and diarrhea Possible aspiration pneumonia Recommendation: Continue IV fluid Continue Zosyn Procalcitonin level was noted to be elevated as high as 18.6 Urine Legionella antigen was negative Continue GI and DVT prophylaxis Will continue to follow Time with Patient: Less than 30
[2024-11-12 16:24] LABS: Glucose,Whole Blood 161 mg/dL (70-110)
[2024-11-12] MEDS: amLODIPine 5 MG TAB PO SCH (17:00)
[2024-11-12 18:31] LABS: African American GFR (CKD) >90 (>60 ml/min/1.73 sqM); Anion Gap 7 mmol/L; Blood Urea Nitrogen 9 mg/dL (7-17); Calcium 8.8 mg/dL (8.4-10.2); Carbon Dioxide 25 mmol/L (22-30); Chloride 101 mmol/L (98-107); Glucose 214 mg/dL (74-99); Non-African American GFR(CKD) 85 (>60 ml/min/1.73 sqM); Potassium 4.5 mmol/L (3.5-5.1); Sodium 133 mmol/L (137-145)
[2024-11-12 20:28] LABS: Glucose,Whole Blood 230 mg/dL (70-110)
[2024-11-13 06:10] LABS: Glucose,Whole Blood 164 mg/dL (70-110)
[2024-11-13 07:59] LABS: Basophils # (A) 0.02 10*3/uL (0.00-0.10); Basophils % (A) 0.3 %; Eosinophils # (A) 0.15 10*3/uL (0.04-0.35); Eosinophils % (A) 2.1 %; HCT 32.2 % (37.2-46.3); HGB 10.5 g/dL (12.0-15.0); Immature Platelet Fraction 4.6 % (1.1-6.1); Lymphocytes # (A) 0.88 10*3/uL (0.90-5.00); Lymphocytes % (A) 12.1 %; MCH 28.5 pg (27.0-32.0); MCHC 32.6 g/dL (32.0-37.0); MCV 87.5 fL (80.0-97.0); Monocytes # (A) 0.48 10*3/uL (0.20-1.00); Monocytes % (A) 6.6 %; Neutrophils % (A) 78.2 %; Platelet Count 135 10*3/uL (140-440); RBC 3.68 10*6/uL (4.10-5.20); RDW 13.5 % (11.5-14.5); WBC 7.28 10*3/uL (4.50-10.00)
--- NOTE | 2024-11-13 08:15 | P.PN ---
Subjective Progress Note Date: 11/13/24 This is a pleasant 79 years old female with past medical history as below Presents because patient was found in the toilet unresponsive and vomited on her close. Information were obtained with the help of the daughter at bedside The daughter does not think that the patient was passed out, she she was very lethargic she was very weak but no confusion she was sitting in the toilet and vomited on her close. The daughter does not think she had syncope. The patient however denies chest pain or dyspnea. No abdominal pain however she had loose bowel movement this morning about 3-4 times However patient was complaining from the heartburn in the middle of her chest. She denies dysuria or urgency she has little dry cough. No headache dizziness weakness or numbness on 11/13/2024 patient is alert and oriented x 3. Patient reports improvement with nausea and vomiting. She quit smoking, recently no alcohol or illicit drugs. And admission her blood pressure was stable but tightly becoming more low. [place] on she developed fever of 100.5. She has mild leukocytosis of 13.4. Liver enzymes mildly elevated. Troponin started trending up CTA of the chest showed no PE or airspace consolidation although D-dimer was elevated more than 13,000 CT of the brain is negative for acute process. Chest x-ray showing COPD with no acute consolidation. EKG showing sinus rhythm about [address]-T changes. Blood culture requested. CT of the abdomen and pelvis also requested Discussed the case with the staff who contacted pathologist assistant on-call who recommends to hold on heparin drip for now On 11/11/2024 patient is alert and oriented x 3. CT of abdomen and pelvis completed showing pneumonia type interstitial infiltrates with few small areas of consolidation on the left lower lung base a partially contracted gallbladder with increased wall thickness and pericholecystic mild fat stranding and asymmetric thickening of the left adrenal gland. At this time surgical services and infectious disease services consulted will also consult pulmonary services with concerns of aspiration pneumonia patient reports improvement with overall symptoms. Awaiting input from consulting providers. Venous Doppler negative for DVT. Current vital signs temp 98.1, heart rate 91, respiratory rate 17, blood pressure 108/55 with a pulse ox of 93% on 2 L On 11/12/2024 patient was seen and examined on the medical floor she is alert and oriented x 3 in no apparent distress there is no fever or chills no headache or dizziness no chest pain no shortness of breath no cough no nausea or vomiting no abdominal pain no diarrhea and no urinary symptoms. Patient is improving gradually, hemoglobin is down to 10.4, will check stools for Hemoccult blood, potassium is low at 2.9 will replace. Surgery are recommending MRCP, however patient is refusing due to claustrophobia, will continue to monitor closely. On 11/13/2024 patient is alert and oriented x 3. Patient reports improvement with nausea and vomiting. Patient remains on IV Zosyn. Hemoglobin today 10.5, white blood cell 7.28. Surgical, pulmonary, infectious disease and cardiology services are following. Current vital signs temp 98.7, heart rate 86, respiratory rate 16, blood pressure 152/81 with a pulse ox of 96% on 2 L Objective - Vital Signs Vital signs: Vital Signs Temp 98.7 F 11/13/24 04:12 Pulse 86 11/13/24 04:12 Resp 16 11/13/24 04:12 BP 152/81 11/13/24 04:12 Pulse Ox 96 11/13/24 04:12 FiO2 Intake & Output 11/12/24 11/13/24 11/13/24 18:59 06:59 18:59 Intake Total 250 Output Total 0 Balance 250 Weight 60.5 kg Intake: IV 10 Invasive Line 1 10 Oral 240 Output: Gastric Drainage 0 Urine 0 Stool 0 Emesis 0 Oral Regurgitation 0 Other 0 Other: Voiding Method Bedside Commode Bedside Commode # Voids 0 2 # Bowel Movements 0 - Exam Head normocephalic Neck supple Lungs clear to auscultation bilaterally no wheezing or crackles Heart regular rate and rhythm S1-S2, no rub or gallop Abdomen is soft nontender nondistended positive bowel sounds no hepatosplenomegaly Extremities no edema Neuro alert and orientated to 3 - Labs CBC & Chem 7: 11/13/24 07:22 11/12/24 18:00 Labs: Abnormal Lab Results - Last 24 Hours (Table) 11/12/24 11/12/24 11/12/24 Range/Units 06:43 06:43 11:11 RBC 3.35 L (4.10-5.20) 10*6/uL Hgb 10.0 L D (12.0-15.0) g/dL Hct 29.4 L (37.2-46.3) % Plt Count 122 L (140-440) 10*3/uL Immature Gran # (0.00-0.04) 10*3/uL Lymphocytes # (0.90-5.00) 10*3/uL Sodium 136 L (137-145) mmol/L Potassium 2.9 L (3.5-5.1) mmol/L Chloride 111 H (98-107) mmol/L Carbon Dioxide 21 L (22-30) mmol/L Creatinine 0.48 L (0.52-1.04) mg/dL Glucose 122 H (74-99) mg/dL POC Glucose (mg/dL) 167 H (70-110) mg/dL Calcium 6.9 L (8.4-10.2) mg/dL AST 92 H (14-36) U/L ALT 186 H (4-34) U/L Total Protein 4.1 L (6.3-8.2) g/dL Albumin 2.2 L (3.5-5.0) g/dL 11/12/24 11/12/24 11/12/24 Range/Units 16:22 18:00 20:26 RBC (4.10-5.20) 10*6/uL Hgb (12.0-15.0) g/dL Hct (37.2-46.3) % Plt Count (140-440) 10*3/uL Immature Gran # (0.00-0.04) 10*3/uL Lymphocytes # (0.90-5.00) 10*3/uL Sodium 133 L (137-145) mmol/L Potassium (3.5-5.1) mmol/L Chloride (98-107) mmol/L Carbon Dioxide (22-30) mmol/L Creatinine (0.52-1.04) mg/dL Glucose 214 H (74-99) mg/dL POC Glucose (mg/dL) 161 H 230 H (70-110) mg/dL Calcium (8.4-10.2) mg/dL AST (14-36) U/L ALT (4-34) U/L Total Protein (6.3-8.2) g/dL Albumin (3.5-5.0) g/dL 11/13/24 11/13/24 Range/Units 06:08 07:22 RBC 3.68 L (4.10-5.20) 10*6/uL Hgb 10.5 L (12.0-15.0) g/dL Hct 32.2 L (37.2-46.3) % Plt Count 135 L (140-440) 10*3/uL Immature Gran # 0.05 H (0.00-0.04) 10*3/uL Lymphocytes # 0.88 L (0.90-5.00) 10*3/uL Sodium (137-145) mmol/L Potassium (3.5-5.1) mmol/L Chloride (98-107) mmol/L Carbon Dioxide (22-30) mmol/L Creatinine (0.52-1.04) mg/dL Glucose (74-99) mg/dL POC Glucose (mg/dL) 164 H (70-110) mg/dL Calcium (8.4-10.2) mg/dL AST (14-36) U/L ALT (4-34) U/L Total Protein (6.3-8.2) g/dL Albumin (3.5-5.0) g/dL Microbiology - Last 24 Hours (Table) 11/11/24 00:05 Blood Culture - Preliminary Blood Assessment and Plan Assessment: 1. Sepsis with fever and leukocytosis 2. Nausea and vomiting 3. Possible aspiration pneumonia 4. Acute cholecystitis 5. Elevated troponin 6. Adrenal gland inflammation 7. Elevated liver enzymes 8. History of COPD 9. History of diabetes mellitus 10. History of essential hypertension 11. History of hyperlipidemia DVT prophylaxis heparin. GI prophylaxis Protonix Cardiology, surgical, infectious disease and pulmonary services consulted 2D echo has been ordered Patient started on IV Zosyn Repeat labs ordered Blood culture ordered
[2024-11-13 08:23] LABS: ALT 170 U/L (4-34); AST 57 U/L (14-36); African American GFR (CKD) >90 (>60 ml/min/1.73 sqM); Albumin 3.1 g/dL (3.5-5.0); Alkaline Phosphatase 92 U/L (38-126); Anion Gap 5 mmol/L; Blood Urea Nitrogen 5 mg/dL (7-17); Calcium 8.5 mg/dL (8.4-10.2); Carbon Dioxide 25 mmol/L (22-30); Chloride 105 mmol/L (98-107); Glucose 162 mg/dL (74-99); Non-African American GFR(CKD) >90 (>60 ml/min/1.73 sqM); Potassium 4.3 mmol/L (3.5-5.1); Sodium 135 mmol/L (137-145); Total Protein 5.4 g/dL (6.3-8.2)
[2024-11-13] MEDS: METOPROLOL SUCCINATE (ER) 50 MG TAB.ER.24H PO SCH (08:47)
[2024-11-13] MEDS: amLODIPine 5 MG TAB PO STA (08:47)
--- NOTE | 2024-11-13 10:05 | P.PN ---
Subjective HISTORY OF PRESENT ILLNESS: This is a 79-year-old female with a past medical history significant for hypertension, hyperlipidemia, diabetes, and syncope. 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 We have been asked to see the patient in consultation for chest pain. Patient examined at the bedside. Patient's daughter is at the bedside. She states yesterday patient's blood pressure was elevated at home with a reading of 60/40. She reports she has been febrile at home. She reports having nausea vomiting, diarrhea at home. She states yesterday she had some pain in her shoulder blades as well. She reports a cough that started yesterd ay. She denies having any chest pain or pressure. The daughter states that her sister found her " semiunconscious" yesterday at home. DIAGNOSTICS: - EKG reveals sinus mechanism with no signs of acute ischemia. - Chest xray COPD. No signs of acute ischemia. - Laboratory data: WBC 11.5. Hemoglobin 11.9. Platelet count 152. Sodium 133. Potassium 4.4. BUN 19. Creatinine 0.70. Lactic acid 3.5. Bilirubin 1.4. AST 487. ALT 429. Troponin 0.079. 0.230. 0.356. Procalcitonin 18.60. - Current home cardiac medications include rosuvastatin 5 mg at night, aspirin 81 mg daily, on lisinopril 30 mg daily. - No previous echocardiogram, stress test, or cardiac catheterization available in EMR for review 11/12/2024 Patient examined this morning at bedside. Patient currently denies chest pain or pressure. She denies shortness of breath. Vital signs are stable. Blood pressure elevated in the 160s. Echocardiogram performed revealing ejection fraction 55 to 60%, mild pulmonary hypertension, mild aortic regurgitation, mild tricuspid regurgitation. 11/13/2024 Patient examined this morning to bedside. Patient currently denies any chest pain or pressure. She denies any shortness of breath. Denies dizziness or lightheadedness. She remains on antibiotics. Per nursing, patient will be reevaluated by general surgery tomorrow. Patient's blood pressure remains elevated this morning with a reading of 175/82 PHYSICAL EXAM: VITAL SIGNS: Reviewed. GENERAL: Well-developed in no acute distress. HEENT: Head is normocephalic. Pupils are equal, round. Sclerae anicteric. Mucous membranes of the mouth are moist. Neck supple. No JVD or thyromegaly LUNGS: Respirations even and unlabored. Lungs essentially clear to auscultation bilaterally. HEART: Regular rate and rhythm. S1 and S2 heard. ABDOMEN: Soft. Nondistended. Nontender. EXTREMITIES: Normal range of motion. No clubbing or cyanosis. Peripheral pulses intact. No lower extremity edema NEUROLOGIC: Awake and alert. Oriented x 3. ASSESSMENT: Sepsis Nausea, vomiting, diarrhea Acute cholecystitis Elevated troponins, type II SC secondary to sepsis, no evidence of acute coronary syndrome Transaminitis Lactic acidosis History of hypertension History of hyperlipidemia History of diabetes History of syncope PLAN: Patient's troponin elevation likely secondary to sepsis with no evidence of acute coronary syndrome Continue lisinopril Amlodipine added yesterday for uncontrolled hypertension. Increase dose to 10 mg daily Add metoprolol succinate 50 mg daily Continue to monitor blood pressure Continue to hold statin therapy secondary to transaminitis Continue antibiotics per infectious disease Further recommendations pending patient course Nurse practitioner note has been reviewed by physician. Signing provider agrees with the documented findings, assessment, and plan of care documented by [employer] as a scribe. Objective - Vital Signs Vital signs: Vital Signs Temp 98.1 F 11/13/24 08:12 Pulse 80 11/13/24 08:12 Resp 18 11/13/24 08:12 BP 175/82 11/13/24 08:12 Pulse Ox 95 11/13/24 08:12 FiO2 Intake & Output 11/12/24 11/13/24 11/13/24 18:59 06:59 18:59 Intake Total 250 360 Output Total 0 Balance 250 360 Weight 60.5 kg Intake: IV 10 Invasive Line 1 10 Oral 240 360 Output: Gastric Drainage 0 Urine 0 Stool 0 Emesis 0 Oral Regurgitation 0 Other 0 Other: Voiding Method Bedside Commode Bedside Commode Bedside Commode # Voids 0 2 # Bowel Movements 0 - Labs CBC & Chem 7: 11/13/24 07:22 11/13/24 07:22 Labs: Abnormal Lab Results - Last 24 Hours (Table) 11/12/24 11/12/24 11/12/24 Range/Units 11:11 16:22 18:00 RBC (4.10-5.20) 10*6/uL Hgb (12.0-15.0) g/dL Hct (37.2-46.3) % Plt Count (140-440) 10*3/uL Immature Gran # (0.00-0.04) 10*3/uL Lymphocytes # (0.90-5.00) 10*3/uL Sodium 133 L (137-145) mmol/L BUN (7-17) mg/dL Creatinine (0.52-1.04) mg/dL Glucose 214 H (74-99) mg/dL POC Glucose (mg/dL) 167 H 161 H (70-110) mg/dL AST (14-36) U/L ALT (4-34) U/L Total Protein (6.3-8.2) g/dL Albumin (3.5-5.0) g/dL 11/12/24 11/13/24 11/13/24 Range/Units 20:26 06:08 07:22 RBC 3.68 L (4.10-5.20) 10*6/uL Hgb 10.5 L (12.0-15.0) g/dL Hct 32.2 L (37.2-46.3) % Plt Count 135 L (140-440) 10*3/uL Immature Gran # 0.05 H (0.00-0.04) 10*3/uL Lymphocytes # 0.88 L (0.90-5.00) 10*3/uL Sodium (137-145) mmol/L BUN (7-17) mg/dL Creatinine (0.52-1.04) mg/dL Glucose (74-99) mg/dL POC Glucose (mg/dL) 230 H 164 H (70-110) mg/dL AST (14-36) U/L ALT (4-34) U/L Total Protein (6.3-8.2) g/dL Albumin (3.5-5.0) g/dL 11/13/24 Range/Units 07:22 RBC (4.10-5.20) 10*6/uL Hgb (12.0-15.0) g/dL Hct (37.2-46.3) % Plt Count (140-440) 10*3/uL Immature Gran # (0.00-0.04) 10*3/uL Lymphocytes # (0.90-5.00) 10*3/uL Sodium 135 L (137-145) mmol/L BUN 5 L (7-17) mg/dL Creatinine 0.51 L (0.52-1.04) mg/dL Glucose 162 H (74-99) mg/dL POC Glucose (mg/dL) (70-110) mg/dL AST 57 H (14-36) U/L ALT 170 H (4-34) U/L Total Protein 5.4 L (6.3-8.2) g/dL Albumin 3.1 L (3.5-5.0) g/dL Microbiology - Last 24 Hours (Table) 11/11/24 00:05 Blood Culture - Preliminary Blood
[2024-11-13 11:34] LABS: Glucose,Whole Blood 160 mg/dL (70-110)
--- NOTE | 2024-11-13 13:34 | P.PN ---
Subjective Progress Note Date: 11/13/24 Principal diagnosis: Acute gastroenteritis possible aspiration pneumonia This is an 79-year-old female with history of irritable bowel syndrome according to her daughter, presented yesterday with an acute episode of nausea vomiting diarrhea, and as she was vomiting patient went unresponsive and developed a syncopal episode. The daughter who was at bedside did not think that she actually truly passed out, but she was noted to quite lethargic, weak, confused sitting at the edge of the toilet and she vomited again. Considering the symptoms, patient was brought into the ER, and had extensive workup since admission. Patient had a CT angiogram of the chest to rule out pulmonary embolism and it showed minimal chronic interstitial changes in the left lower lobe. Patient was noted to have a bit of leukocytosis with WBC count of 11.5 electrolytes were normal, liver enzymes were noted to be elevated, lactic acid was 3.5 AST 487 ALT 429. Chest x-ray was noted to be basically unremarkable no clear-cut evidence of pneumonia on the chest x-ray. Considering her presentati on and considering abnormal CT of the chest, this consult was initiated. Patient did not have any recent history of cough wheezing shortness of breath, did not have symptoms to suggest pneumonia but she did have mostly GI symptoms. And according to the daughter it is not unusual for her to have episodes of nausea vomiting and diarrhea. Patient had elevated D-dimer on this admission but she had negative CT angiogram for pulmonary embolism she also had negative venous Doppler for DVT. Patient was seen today on 11/12/2024, doing great, asymptomatic, hardly any pulmonary symptoms, no cough no wheezing no shortness of breath. No further episodes of nausea vomiting or diarrhea. Labs were reviewed she had low potassium of 2.9 otherwise the rest of the labs were unremarkable CBC was normal hemoglobin is 10, liver enzymes are improving ALT down to 186 and alkaline phosphatase is 68 AST is 92 Patient was seen today on 11/13/2024, patient is doing well, relatively asymptomatic, on room air, O2 sat is 94%, hardly any cough no wheezing no shortness of breath. WBC count 7.2 hemoglobin 7.5 electrolytes are normal renal profile is normal, no further episodes of nausea and vomiting, remains on Zosyn for possible aspiration pneumonia, her labs were reviewed, we will likely recommend transitioning from Zosyn to oral Augmentin in the next 24 hours. Objective - Vital Signs Vital signs: Vital Signs Temp 98.1 F 11/13/24 11:50 Pulse 70 11/13/24 11:50 Resp 18 11/13/24 11:50 BP 150/73 11/13/24 11:50 Pulse Ox 94 L 11/13/24 11:50 FiO2 Intake & Output 11/12/24 11/13/24 11/13/24 18:59 06:59 18:59 Intake Total 250 360 Output Total 0 Balance 250 360 Weight 60.5 kg Intake: IV 10 Invasive Line 1 10 Oral 240 360 Output: Gastric Drainage 0 Urine 0 Stool 0 Emesis 0 Oral Regurgitation 0 Other 0 Other: Voiding Method Bedside Commode Bedside Commode Bedside Commode # Voids 0 2 # Bowel Movements 0 - Exam GENERAL: Revealed 79-year-old female in no distress, on room air Head: Atraumatic, normocephalic HEENT: PERRLA, EOMI, anicteric, no neck masses no JVD no stridor CARDIOVASCULAR: Distant S1-S2, no S3 gallop PULMONARY: Clear bilaterally no crackles rhonchi or wheezes ABDOMEN: Soft nontender no megaly no rebound no guarding MUSCULOSKELETAL: No joint swelling or deformity. EXTREMITIES: No cyanosis, clubbing, or pedal edema. NEUROLOGICAL: Alert oriented x 3 no gross focal deficit SKIN: No rashes. no petechiae. - Labs CBC & Chem 7: 11/13/24 07:22 11/13/24 07:22 Labs: Abnormal Lab Results - Last 24 Hours (Table) 11/12/24 11/12/24 11/12/24 Range/Units 16:22 18:00 20:26 RBC (4.10-5.20) 10*6/uL Hgb (12.0-15.0) g/dL Hct (37.2-46.3) % Plt Count (140-440) 10*3/uL Immature Gran # (0.00-0.04) 10*3/uL Lymphocytes # (0.90-5.00) 10*3/uL Sodium 133 L (137-145) mmol/L BUN (7-17) mg/dL Creatinine (0.52-1.04) mg/dL Glucose 214 H (74-99) mg/dL POC Glucose (mg/dL) 161 H 230 H (70-110) mg/dL AST (14-36) U/L ALT (4-34) U/L Total Protein (6.3-8.2) g/dL Albumin (3.5-5.0) g/dL 11/13/24 11/13/24 11/13/24 Range/Units 06:08 07:22 07:22 RBC 3.68 L (4.10-5.20) 10*6/uL Hgb 10.5 L (12.0-15.0) g/dL Hct 32.2 L (37.2-46.3) % Plt Count 135 L (140-440) 10*3/uL Immature Gran # 0.05 H (0.00-0.04) 10*3/uL Lymphocytes # 0.88 L (0.90-5.00) 10*3/uL Sodium 135 L (137-145) mmol/L BUN 5 L (7-17) mg/dL Creatinine 0.51 L (0.52-1.04) mg/dL Glucose 162 H (74-99) mg/dL POC Glucose (mg/dL) 164 H (70-110) mg/dL AST 57 H (14-36) U/L ALT 170 H (4-34) U/L Total Protein 5.4 L (6.3-8.2) g/dL Albumin 3.1 L (3.5-5.0) g/dL 11/13/24 Range/Units 11:33 RBC (4.10-5.20) 10*6/uL Hgb (12.0-15.0) g/dL Hct (37.2-46.3) % Plt Count (140-440) 10*3/uL Immature Gran # (0.00-0.04) 10*3/uL Lymphocytes # (0.90-5.00) 10*3/uL Sodium (137-145) mmol/L BUN (7-17) mg/dL Creatinine (0.52-1.04) mg/dL Glucose (74-99) mg/dL POC Glucose (mg/dL) 160 H (70-110) mg/dL AST (14-36) U/L ALT (4-34) U/L Total Protein (6.3-8.2) g/dL Albumin (3.5-5.0) g/dL Microbiology - Last 24 Hours (Table) 11/11/24 00:05 Blood Culture - Preliminary Blood Assessment and Plan Assessment: Impression:Acute gastroenteritis with acute transaminitis Possible sepsis with fever and leukocytosis associated with nausea vomiting and diarrhea Possible syncopal episode, emesis induced syncope History of underlying COPD, and the active Type 2 diabetes, on metformin Benign essential hypertension Dyslipidemia Acute hypovolemia secondary to nausea vomiting and diarrhea Possible aspiration pneumonia Recommendation: Continue IV fluid Continue Zosyn, could consider transitioning to oral Augmentin in the next 24 hours Procalcitonin level was noted to be elevated as high as 18.6 Urine Legionella antigen was negative Continue GI and DVT prophylaxis Will continue to follow Time with Patient: Less than 30
[2024-11-13 16:29] LABS: Glucose,Whole Blood 173 mg/dL (70-110)
--- NOTE | 2024-11-13 17:34 | P.PN ---
Subjective Progress Note Date: 11/13/24 Principal diagnosis: Reason for follow-up is pneumonia and question of cholecystitis Patient is a 79-year-old female with a past medical history significant for diabetes mellitus hypertension hyperlipidemia, patient has been brought into the hospital after apparently patient did have a syncopal episode patient did have an episode of vomiting did have elevated white count there was concern for cholecystitis on the CT and possible pneumonia. On today's evaluation that is 11/13/2024, Patient is afebrile this morning patient denies having any chest pain shortness of breath or cough, the patient is currently on room air, patient denies any abdominal pain no diarrhea no nausea no vomiting. Patient white count 7.28, creatinine 0.51 Objective - Vital Signs Vital signs: Vital Signs Temp 98.1 F 11/13/24 11:50 Pulse 70 11/13/24 11:50 Resp 18 11/13/24 11:50 BP 124/67 11/13/24 13:46 Pulse Ox 94 L 11/13/24 11:50 FiO2 Intake & Output 11/12/24 11/13/24 11/13/24 18:59 06:59 18:59 Intake Total 250 480 Output Total 0 Balance 250 480 Weight 60.5 kg Intake: IV 10 Invasive Line 1 10 Oral 240 480 Output: Gastric Drainage 0 Urine 0 Stool 0 Emesis 0 Oral Regurgitation 0 Other 0 Other: Voiding Method Bedside Commode Bedside Commode Toilet Bedside Commode # Voids 0 2 3 # Bowel Movements 0 - Exam GENERAL DESCRIPTION: An elderly female lying in bed in no distress RESPIRATORY SYSTEM: Unlabored breathing , decreased breath sounds at bases HEART: S1 S2 regular rate and rhythm , ABDOMEN: Soft , no tenderness EXTREMITIES: No edema feet - Labs CBC & Chem 7: 11/13/24 07:22 11/13/24 07:22 Labs: Abnormal Lab Results - Last 24 Hours (Table) 11/12/24 11/12/24 11/12/24 Range/Units 16:22 18:00 20:26 RBC (4.10-5.20) 10*6/uL Hgb (12.0-15.0) g/dL Hct (37.2-46.3) % Plt Count (140-440) 10*3/uL Immature Gran # (0.00-0.04) 10*3/uL Lymphocytes # (0.90-5.00) 10*3/uL Sodium 133 L (137-145) mmol/L BUN (7-17) mg/dL Creatinine (0.52-1.04) mg/dL Glucose 214 H (74-99) mg/dL POC Glucose (mg/dL) 161 H 230 H (70-110) mg/dL AST (14-36) U/L ALT (4-34) U/L Total Protein (6.3-8.2) g/dL Albumin (3.5-5.0) g/dL 11/13/24 11/13/24 11/13/24 Range/Units 06:08 07:22 07:22 RBC 3.68 L (4.10-5.20) 10*6/uL Hgb 10.5 L (12.0-15.0) g/dL Hct 32.2 L (37.2-46.3) % Plt Count 135 L (140-440) 10*3/uL Immature Gran # 0.05 H (0.00-0.04) 10*3/uL Lymphocytes # 0.88 L (0.90-5.00) 10*3/uL Sodium 135 L (137-145) mmol/L BUN 5 L (7-17) mg/dL Creatinine 0.51 L (0.52-1.04) mg/dL Glucose 162 H (74-99) mg/dL POC Glucose (mg/dL) 164 H (70-110) mg/dL AST 57 H (14-36) U/L ALT 170 H (4-34) U/L Total Protein 5.4 L (6.3-8.2) g/dL Albumin 3.1 L (3.5-5.0) g/dL 11/13/24 Range/Units 11:33 RBC (4.10-5.20) 10*6/uL Hgb (12.0-15.0) g/dL Hct (37.2-46.3) % Plt Count (140-440) 10*3/uL Immature Gran # (0.00-0.04) 10*3/uL Lymphocytes # (0.90-5.00) 10*3/uL Sodium (137-145) mmol/L BUN (7-17) mg/dL Creatinine (0.52-1.04) mg/dL Glucose (74-99) mg/dL POC Glucose (mg/dL) 160 H (70-110) mg/dL AST (14-36) U/L ALT (4-34) U/L Total Protein (6.3-8.2) g/dL Albumin (3.5-5.0) g/dL Microbiology - Last 24 Hours (Table) 11/11/24 00:05 Blood Culture - Preliminary Blood Assessment and Plan (1) Acute cholecystitis Current Visit: Yes Status: Acute Code(s): K81.0 - ACUTE CHOLECYSTITIS SNOMED Code(s): 32372236 (2) Sepsis Current Visit: Yes Status: Acute Code(s): A41.9 - SEPSIS, UNSPECIFIED ORGANISM SNOMED Code(s): 05309151 Plan: 1patient presented to hospital with sepsis in this patient who did have fever tachycardia elevated white count source is likely acute cholecystitis with signi ficant abnormality seen on the CT patient also have elevated liver enzymes and will need to cover for the enteric gram-negative to be the likely pathogen and there is also concern for possible aspiration pneumonia 2-patient did have a resolution of her fever white count normalized did have elevated procalcitonin 3patient has shown clinical improvement to continue with the Zosyn while inpatient will transition to oral antibiotic on discharge Daughter at the bedside question answered Dictation was produced using [employer] dictation software. please excuse any grammatical, word or spelling errors. Time with Patient: Less than 30
--- NOTE | 2024-11-13 17:34 | P.PN ---
Subjective Progress Note Date: 11/12/24 Principal diagnosis: Reason for follow-up is pneumonia and question of cholecystitis Patient is a 79-year-old female with a past medical history significant for diabetes mellitus hypertension hyperlipidemia, patient has been brought into the hospital after apparently patient did have a syncopal episode patient did have an episode of vomiting did have elevated white count there was concern for cholecystitis on the CT and possible pneumonia. On today's evaluation that is 11/12/2024, patient did have resolution of her fever has been afebrile, patient is breathing comfortably and is currently on room air, patient denies having any chest pain or worsening cough, patient denies nausea vomiting or diarrhea and no abdominal pain. Patient white count normalized to 8.16, creatinine 0.61 Pro-Yayo is elevated 18.60 Objective - Vital Signs Vital signs: Vital Signs Temp 97.9 F 11/12/24 11:08 Pulse 81 11/12/24 11:08 Resp 18 11/12/24 11:08 BP 170/76 11/12/24 11:08 Pulse Ox 96 11/12/24 11:08 FiO2 Intake & Output 11/11/24 11/12/24 11/12/24 18:59 06:59 18:59 Intake Total 240 250 Output Total 200 0 Balance -200 240 250 Weight 60.5 kg Intake: IV 10 Invasive Line 1 10 Oral 240 240 Output: Gastric Drainage 0 Urine 200 0 Stool 0 Emesis 0 Oral Regurgitation 0 Other 0 Other: Voiding Method Bedside Commode Bedside Commode Bedside Commode # Voids 1 0 # Bowel Movements 0 - Exam GENERAL DESCRIPTION: An elderly female lying in bed in no distress RESPIRATORY SYSTEM: Unlabored breathing , decreased breath sounds at bases HEART: S1 S2 regular rate and rhythm , ABDOMEN: Soft , no tenderness EXTREMITIES: No edema feet - Labs CBC & Chem 7: 11/13/24 07:22 11/13/24 07:22 Labs: Abnormal Lab Results - Last 24 Hours (Table) 11/11/24 11/11/24 11/12/24 Range/Units 16:24 20:07 06:01 RBC (4.10-5.20) 10*6/uL Hgb (12.0-15.0) g/dL Hct (37.2-46.3) % Plt Count (140-440) 10*3/uL Sodium (137-145) mmol/L Potassium (3.5-5.1) mmol/L Chloride (98-107) mmol/L Carbon Dioxide (22-30) mmol/L Creatinine (0.52-1.04) mg/dL Glucose (74-99) mg/dL POC Glucose (mg/dL) 164 H 184 H 148 H (70-110) mg/dL Calcium (8.4-10.2) mg/dL AST (14-36) U/L ALT (4-34) U/L Total Protein (6.3-8.2) g/dL Albumin (3.5-5.0) g/dL 11/12/24 11/12/24 11/12/24 Range/Units 06:43 06:43 11:11 RBC 3.35 L (4.10-5.20) 10*6/uL Hgb 10.0 L D (12.0-15.0) g/dL Hct 29.4 L (37.2-46.3) % Plt Count 122 L (140-440) 10*3/uL Sodium 136 L (137-145) mmol/L Potassium 2.9 L (3.5-5.1) mmol/L Chloride 111 H (98-107) mmol/L Carbon Dioxide 21 L (22-30) mmol/L Creatinine 0.48 L (0.52-1.04) mg/dL Glucose 122 H (74-99) mg/dL POC Glucose (mg/dL) 167 H (70-110) mg/dL Calcium 6.9 L (8.4-10.2) mg/dL AST 92 H (14-36) U/L ALT 186 H (4-34) U/L Total Protein 4.1 L (6.3-8.2) g/dL Albumin 2.2 L (3.5-5.0) g/dL Microbiology - Last 24 Hours (Table) 11/11/24 00:05 Blood Culture - Preliminary Blood Assessment and Plan (1) Acute cholecystitis Current Visit: Yes Status: Acute Code(s): K81.0 - ACUTE CHOLECYSTITIS SNOMED Code(s): 10679129 (2) Sepsis Current Visit: Yes Status: Acute Code(s): A41.9 - SEPSIS, UNSPECIFIED ORGANISM SNOMED Code(s): 71220292 (3) Aspiration pneumonia Current Visit: Yes Status: Acute Code(s): J69.0 - PNEUMONITIS DUE TO INHALATION OF FOOD AND VOMIT SNOMED Code(s): 075882910 Plan: 1patient presented to hospital with sepsis in this patient who did have fever tachycardia elevated white count source is likely acute cholecystitis with significant abnormality seen on the CT patient also have elevated liver enzymes and will need to cover for the enteric gram-negative to be the likely pathogen and there is also concern for possible aspiration pneumonia 2-patient did have a resolution of her fever white count normalized did have elevated procalcitonin 3patient currently being treated with Zosyn 3.375 grams every 8 hours while waiting for the third to finalize Dictation was produced using [employer] dictation software. please excuse any grammatical, word or spelling errors. Time with Patient: Less than 30
[2024-11-13 19:56] LABS: Glucose,Whole Blood 192 mg/dL (70-110)
[2024-11-14 06:09] LABS: Glucose,Whole Blood 160 mg/dL (70-110)
[2024-11-14 07:02] LABS: ALT 155 U/L (4-34); AST 68 U/L (14-36); African American GFR (CKD) >90 (>60 ml/min/1.73 sqM); Alkaline Phosphatase 111 U/L (38-126); Anion Gap 6 mmol/L; Basophils # (A) 0.06 10*3/uL (0.00-0.10); Blood Urea Nitrogen 7 mg/dL (7-17); Calcium 8.8 mg/dL (8.4-10.2); Carbon Dioxide 26 mmol/L (22-30); Chloride 104 mmol/L (98-107); Eosinophils # (A) 0.26 10*3/uL (0.04-0.35); Eosinophils % (A) 4.5 %; Glucose 155 mg/dL (74-99); HGB 10.7 g/dL (12.0-15.0); Lymphocytes # (A) 1.37 10*3/uL (0.90-5.00); Lymphocytes % (A) 23.5 %; MCH 29.2 pg (27.0-32.0); MCHC 33.4 g/dL (32.0-37.0); MCV 87.4 fL (80.0-97.0); Mean Platelet Volume 11.3 fL (9.5-12.2); Monocytes # (A) 0.51 10*3/uL (0.20-1.00); Monocytes % (A) 8.7 %; Neutrophils % (A) 61.8 %; Non-African American GFR(CKD) 88 (>60 ml/min/1.73 sqM); Platelet Count 158 10*3/uL (140-440); RBC 3.66 10*6/uL (4.10-5.20); RDW 13.6 % (11.5-14.5); Sodium 136 mmol/L (137-145); Total Bilirubin 0.8 mg/dL (0.2-1.3); Total Protein 5.3 g/dL (6.3-8.2); WBC 5.83 10*3/uL (4.50-10.00)
[2024-11-14] MEDS: amLODIPine 10 MG TAB PO SCH (08:16)
[2024-11-14 08:26] VITALS: RESP 20
[2024-11-14 11:11] LABS: Glucose,Whole Blood 182 mg/dL (70-110)
--- NOTE | 2024-11-14 13:07 | P.PN ---
Subjective Progress Note Date: 11/14/24 Principal diagnosis: Syncope. This is an 79-year-old female with history of irritable bowel syndrome according to her daughter, presented yesterday with an acute episode of nausea vomiting diarrhea, and as she was vomiting patient went unresponsive and developed a syncopal episode. The daughter who was at bedside did not think that she actually truly passed out, but she was noted to quite lethargic, weak, confused sitting at the edge of the toilet and she vomited again. Considering the symptoms, patient was brought into the ER, and had extensive workup since admission. Patient had a CT angiogram of the chest to rule out pulmonary embolism and it showed minimal chronic interstitial changes in the left lower lobe. Patient was noted to have a bit of leukocytosis with WBC count of 11.5 electrolytes were normal, liver enzymes were noted to be elevated, lactic acid was 3.5 AST 487 ALT 429. Chest x-ray was noted to be basically unremarkable no clear-cut evidence of pneumonia on the chest x-ray. Considering her presentation and considering abnormal CT of the chest, this consult was initiated. Patient did not have any recent history of cough wheezing shortness of breath, did not have symptoms to suggest pneumonia but she did have mostly GI symptoms. And according to the daughter it is not unusual for her to have episodes of nausea vomiting and diarrhea. Patient had elevated D-dimer on this admission but she had negative CT angiogram for pulmonary embolism she also had negative venous Doppler for DVT. Patient was seen today on 11/12/2024, doing great, asymptomatic, hardly any pulmonary symptoms, no cough no wheezing no shortness of breath. No further e pisodes of nausea vomiting or diarrhea. Labs were reviewed she had low potassium of 2.9 otherwise the rest of the labs were unremarkable CBC was normal hemoglobin is 10, liver enzymes are improving ALT down to 186 and alkaline phosphatase is 68 AST is 92 Patient was seen today on 11/13/2024, patient is doing well, relatively asymptomatic, on room air, O2 sat is 94%, hardly any cough no wheezing no shortness of breath. WBC count 7.2 hemoglobin 7.5 electrolytes are normal renal profile is normal, no further episodes of nausea and vomiting, remains on Zosyn for possible aspiration pneumonia, her labs were reviewed, we will likely recommend transitioning from Zosyn to oral Augmentin in the next 24 hours. Progress note dated November 14, 2024. 79-year-old female seen today in room 368. She is on room air. We converted her Zosyn to Augmentin. She is getting saline at 75 cc an hour. She is sitting in a chair next to the hospital bed. Family members in the room with her. She denies any difficulty breathing, coughing, or wheezing. She seems relatively stable. Current laboratory data includes a white count of 5.8, hemoglobin 10.7, macro 32, and a normal platelet count. Sodium 136, potassium 4, chlorides 104, CO2 26, BUN 7, creatinine 0.55. Glucose is 182. Calcium 8.8. Microbiology is currently negative. No chest x-ray today. Objective - Vital Signs Vital signs: Vital Signs Temp 97.7 F 11/14/24 11:32 Pulse 63 11/14/24 11:32 Resp 20 11/14/24 11:32 BP 149/73 11/14/24 11:32 Pulse Ox 92 L 11/14/24 11:32 FiO2 Intake & Output 11/13/24 11/14/24 11/14/24 18:59 06:59 18:59 Intake Total 720 180 Output Total 0 Balance 720 0 180 Intake: Oral 720 180 Output: Urine 0 Stool 0 Other: Voiding Method Toilet Toilet Toilet Bedside Commode Bedside Commode Bedside Commode # Voids 2 1 - Exam No acute distress, oriented 3. HEENT examination is grossly unremarkable. Mucous membranes are moist. No oral lesions. Neck supple. Full range of motion. No adenopathy thyromegaly or neck vein distention. Cardiovascular examination reveals regular rhythm rate. S1-S2 normal. No S3 or S4. No discernible murmur noted. Lungs reveal clear breath sounds. Breath sounds are equal bilaterally. No adventitious lung sounds including wheezes rhonchi or crackles. Abdomen soft bowel sounds are heard. No masses or tenderness. Extremities are intact. No cyanosis clubbing or edema. Skin is without rash or lesion. Neurologic examination is brief but nonfocal. - Labs CBC & Chem 7: 11/14/24 06:35 11/14/24 06:35 Labs: Abnormal Lab Results - Last 24 Hours (Table) 11/13/24 11/13/24 11/14/24 Range/Units 16:27 19:52 05:58 RBC (4.10-5.20) 10*6/uL Hgb (12.0-15.0) g/dL Hct (37.2-46.3) % Sodium (137-145) mmol/L Glucose (74-99) mg/dL POC Glucose (mg/dL) 173 H 192 H 160 H (70-110) mg/dL AST (14-36) U/L ALT (4-34) U/L Total Protein (6.3-8.2) g/dL Albumin (3.5-5.0) g/dL 11/14/24 11/14/24 11/14/24 Range/Units 06:35 06:35 11:10 RBC 3.66 L (4.10-5.20) 10*6/uL Hgb 10.7 L (12.0-15.0) g/dL Hct 32.0 L (37.2-46.3) % Sodium 136 L (137-145) mmol/L Glucose 155 H (74-99) mg/dL POC Glucose (mg/dL) 182 H (70-110) mg/dL AST 68 H (14-36) U/L ALT 155 H (4-34) U/L Total Protein 5.3 L (6.3-8.2) g/dL Albumin 3.0 L (3.5-5.0) g/dL Microbiology - Last 24 Hours (Table) 11/11/24 00:05 Blood Culture - Preliminary Blood Assessment and Plan Assessment: Acute gastroenteritis with acute transaminitis. Possible sepsis, with fever, and leukocytosis, with associated nausea/vomit ing/diarrhea. Possible syncopal episode. History of chronic obstructive pulmonary disease.. Type 2 diabetes mellitus. Benign essential hypertension. Dyslipidemia. Possible aspiration pneumonia. Hypovolemia secondary to nausea, vomiting, and diarrhea. Plan: Plan dated November 14, 2024. The patient is seen today in room 368. She is sitting in the chair next to the hospital bed. Family members in the room. She is currently on room air. Her Zosyn is discontinued in favor of Augmentin. She is getting saline at 75 cc an hour. Labs, x-rays, medications are reviewed. The patient could be considered for possible discharge. Additional recommendations and suggestions are forthc oming. Dictation was produced using [employer] software. Please excuse any grammatical, word or spelling errors. Time with Patient: Less than 30
--- NOTE | 2024-11-14 13:15 | P.PN ---
Subjective Progress Note Date: 11/14/24 SURGICAL PROGRESS NOTE CHIEF COMPLAINT: Syncope HISTORY OF PRESENT ILLNESS: Patient denies any abdominal pain. Denies any nausea or vomiting. She is tolerating diet. But does not like the food here. Abdominal ultrasound had reported prominent gallbladder. Negative Barton's. No evidence of acute process. Afebrile. WBC 5.83 Hgb 10.7 platelets 158 total bilirubin 0.8 AST ALT 155 alk phos 111. LFTs minimally elevated. Dr. Browne is covering for Dr. Tim PHYSICAL EXAM: VITAL SIGNS: Reviewed. GENERAL: Well-developed in no acute distress. ABDOMEN: Soft. Nondistended. Nontender. NEUROLOGIC: Alert and oriented. Cranial nerves II through XII grossly intact. ASSESSMENT: 1. Chronic cholecystitis. No abdominal pain 2. Elevated LFTs and total bilirubin 3. Left lower lobe pneumonia 4. Elevated troponins evaluated by cardiology service 5. Sepsis possible from patient's pneumonia PLAN: - No surgical intervention planned at this time - Recommend cholecystectomy outpatient and when medically stable - Continue regular diet - Antibiotics per ID service Physician Clerical Methods Analyst note has been reviewed by physician. Signing provider agrees with the documented findings, assessment, and plan of care. I have personally seen and examined the patient, reviewed the SERVICE OBSERVER /PAs history, exam and MDM and agree with the assessment and plan as written. Based on total visit time, I have performed more than 50% of the visit. As above: Patient with episode at home of nausea vomiting, diarrhea and confusion. Found by family to be unresponsive. Admitted with pneumonia possibly related to aspiration. Patient with history of possible gallstone pancreatitis 3 years ago. Patient's liver enzymes were elevated this admission. Lipase and amylase were not checked on arrival. Liver enzymes have trended downwards since arrival. She is anxious for discharge. Tolerating diet. Never had any pain. Patient is not interested in any surgical intervention at this time. Agree with plans for discharge. Follow-up as outpatient if patient would like to discuss cholecystectomy further. Objective - Vital Signs Vital signs: Vital Signs Temp 98.2 F 11/14/24 08:03 Pulse 71 11/14/24 08:03 Resp 20 11/14/24 08:03 BP 167/72 11/14/24 08:03 Pulse Ox 95 11/14/24 08:03 FiO2 Intake & Output 11/13/24 11/14/24 11/14/24 18:59 06:59 18:59 Intake Total 720 180 Output Total 0 Balance 720 0 180 Intake: Oral 720 180 Output: Urine 0 Stool 0 Other: Voiding Method Toilet Toilet Toilet Bedside Commode Bedside Commode Bedside Commode # Voids 2 1 - Labs CBC & Chem 7: 11/14/24 06:35 11/14/24 06:35 Labs: Abnormal Lab Results - Last 24 Hours (Table) 11/13/24 11/13/24 11/14/24 Range/Units 16:27 19:52 05:58 RBC (4.10-5.20) 10*6/uL Hgb (12.0-15.0) g/dL Hct (37.2-46.3) % Sodium (137-145) mmol/L Glucose (74-99) mg/dL POC Glucose (mg/dL) 173 H 192 H 160 H (70-110) mg/dL AST (14-36) U/L ALT (4-34) U/L Total Protein (6.3-8.2) g/dL Albumin (3.5-5.0) g/dL 11/14/24 11/14/24 11/14/24 Range/Units 06:35 06:35 11:10 RBC 3.66 L (4.10-5.20) 10*6/uL Hgb 10.7 L (12.0-15.0) g/dL Hct 32.0 L (37.2-46.3) % Sodium 136 L (137-145) mmol/L Glucose 155 H (74-99) mg/dL POC Glucose (mg/dL) 182 H (70-110) mg/dL AST 68 H (14-36) U/L ALT 155 H (4-34) U/L Total Protein 5.3 L (6.3-8.2) g/dL Albumin 3.0 L (3.5-5.0) g/dL Microbiology - Last 24 Hours (Table) 11/11/24 00:05 Blood Culture - Preliminary Blood
[2024-11-14 15:44] VITALS: BP 143/81; PULSE 64; TEMP 97.9
[2024-11-14 16:13] LABS: Glucose,Whole Blood 225 mg/dL (70-110)
--- NOTE | 2024-11-14 17:30 | P.DS ---
Providers Date of admission: 11/10/24 14:57 Expected date of discharge: 11/14/24 Attending physician: Funmi Biggs Consults: 11/10/24 14:56 Consult Physician Urgent Consulting Provider: Jurgen Malik Consult Reason/Comments: cp Do you want consulting provider notified?: Yes 11/10/24 23:27 Consult Physician Routine Consulting Provider: Esperanza Valverde Consult Reason/Comments: sepsis Do you want consulting provider notified?: Yes 11/11/24 07:52 Consult Physician Routine Consulting Provider: Reji Tim Consult Reason/Comments: adrenal nodule, acute cholecystitis Do you want consulting provider notified?: Yes 11/11/24 09:13 Consult Physician Routine Consulting Provider: Johann Cates Consult Reason/Comments: pneumonia. septic Do you want consulting provider notified?: Yes Primary care physician: Arcelia Jim Hospital Course: Diagnosis on discharge: 1. Sepsis with fever and leukocytosis 2. Nausea and vomiting 3. Possible aspiration pneumonia 4. Acute cholecystitis 5. Elevated troponin 6. Adrenal gland inflammation 7. Elevated liver enzymes 8. History of COPD 9. History of diabetes mellitus 10. History of essential hypertension 11. History of hyperlipidemia Hospital course: This is a pleasant 79 years old female with past medical history as below Presents because patient was found in the toilet unresponsive and vomited on her close. Information were obtained with the help of the daughter at bedside The daughter does not think that the patient was passed out, she she was very lethargic she was very weak but no confusion she was sitting in the toilet and vomited on her close. The daughter does not think she had syncope. The patient however denies chest pain or dyspnea. No abdominal pain however she had loose bowel movement this morning about 3-4 times However patient was complaining from the heartburn in the middle of her chest. She denies dysuria or urgency she has little dry cough. No headache dizziness weakness or numbness on 11/13/2024 patient is alert and oriented x 3. Patient reports improvement with nausea and vomiting. She quit smoking, recently no alcohol or illicit drugs. And admission her blood pressure was stable but tightly becoming more low. Later on she developed fever of 100.5. She has mild leukocytosis of 13.4. Liver enzymes mildly elevated. Troponin started trending up CTA of the chest showed no PE or airspace consolidation although D-dimer was elevated more than 13,000 CT of the brain is negative for acute process. Chest x-ray showing COPD with no acute consolidation. EKG showing sinus rhythm about [address]-T changes. Blood culture requested. CT of the abdomen and pelvis also requested Discussed the case with the staff who contacted marble polisher on-call who recommends to hold on heparin drip for now On 11/11/2024 patient is alert and oriented x 3. CT of abdomen and pelvis completed showing pneumonia type interstitial infiltrates with few small areas of consolidation on the left lower lung base a partially contracted gallbladder with increased wall thickness and pericholecystic mild fat stranding and asymmetric thickening of the left adrenal gland. At this time surgical services and infectious disease services consulted will also consult pulmonary services with concerns of aspiration pneumonia patient reports improvement with overall symptoms. Awaiting input from consulting providers. Venous Doppler negative for DVT. Current vital signs temp 98.1, heart rate 91, respiratory rate 17, blo od pressure 108/55 with a pulse ox of 93% on 2 L On 11/12/2024 patient was seen and examined on the medical floor she is alert and oriented x 3 in no apparent distress there is no fever or chills no headache or dizziness no chest pain no shortness of breath no cough no nausea or vomiting no abdominal pain no diarrhea and no urinary symptoms. Patient is improving gradually, hemoglobin is down to 10.4, will check stools for Hemoccult blood, potassium is low at 2.9 will replace. Surgery are recommending MRCP, however patient is refusing due to claustrophobia, will continue to monitor closely. On 11/13/2024 patient is alert and oriented x 3. Patient reports improvement with nausea and vomiting. Patient remains on IV Zosyn. Hemoglobin today 10.5, white blood cell 7.28. Surgical, pulmonary, infectious disease and cardiology services are following. Current vital signs temp 98.7, heart rate 86, respiratory rate 16, blood pressure 152/81 with a pulse ox of 96% on 2 L On 11/14/2024 patient was seen and examined on the medical floor she is alert and oriented x 3 in no apparent distress she is feeling better and denies any symptoms at this time there is no fever or chills no headache or dizziness no chest pain no shortness of breath no cough no nausea or vomiting no abdominal pain no diarrhea and no urinary symptoms patient is tolerating diet well, during this admission she was evaluated by cardiology pulmonary surgery and infectious disease she received IV Zosyn during this admission she was discharged on a course of oral Augmentin. She will be followed by her primary care physician within 1 week. She will also be followed as needed by surgery for possible cholecystectomy in the future as outpatient. Plan - Discharge Summary Discharge Rx Participant: Yes New Discharge Prescriptions: New Amoxic-Pot Clav 875-125Mg [Augmentin 875-125] 1 each PO Q12HR 10 Days #20 tab Nicotine 14Mg/24Hr Patch [Habitrol] 1 patch TRANSDERM DAILY 30 Days #30 patch Pantoprazole [Protonix] 40 mg PO AC-BRKFST 30 Days #30 tab amLODIPine [Norvasc] 10 mg PO DAILY 30 Days #30 tab Metoprolol Succinate (ER) [Toprol XL] 50 mg PO DAILY 30 Days #30 tab Continue metFORMIN HCL [Glucophage] 1,000 mg PO BID Cholecalciferol (Vitamin D3) [Vitamin D3 (3000 Iu)] 75 mcg PO DAILY Atorvastatin Calcium [Lipitor] 40 mg PO HS lisinopriL [Zestril] 30 mg PO DAILY #30 tab Rosuvastatin Calcium 5 mg PO HS Cholecalciferol [Vitamin D3 (25 Mcg = 1000 Iu)] 25 mcg PO DAILY prednisoLONE ACETATE 1% OPHTH [Pred Forte 1%] 1 drop INTRAOCULA RT-Q6H Aspirin EC [Ecotrin Low Dose] 81 mg PO DAILY Multivit-Min/Iron/Folic/Lutein [Centrum Silver Women Tablet] 1 tab PO DAILY Discontinued Aspirin 325 mg PO DAILY Multivitamins, Thera [Multivitamin (formulary)] 1 tab PO DAILY lisinopriL [Lisinopril] 30 mg PO HS metFORMIN HCL [Glucophage] 1,000 mg PO BID Discharge Medication List metFORMIN HCL [Glucophage] 1,000 mg PO BID 01/20/14 [History] Atorvastatin Calcium [Lipitor] 40 mg PO HS 12/23/21 [History] Cholecalciferol (Vitamin D3) [Vitamin D3 (3000 Iu)] 75 mcg PO DAILY 12/23/21 [History] lisinopriL [Zestril] 30 mg PO DAILY #30 tab 12/25/21 [Rx] Aspirin EC [Ecotrin Low Dose] 81 mg PO DAILY 11/10/24 [History] Cholecalciferol [Vitamin D3 (25 Mcg = 1000 Iu)] 25 mcg PO DAILY 11/10/24 [History] Multivit-Min/Iron/Folic/Lutein [Centrum Silver Women Tablet] 1 tab PO DAILY 11/10/24 [History] Rosuvastatin Calcium 5 mg PO HS 11/10/24 [History] prednisoLONE ACETATE 1% OPHTH [Pred Forte 1%] 1 drop INTRAOCULA RT-Q6H 11/11/24 [History] Amoxic-Pot Clav 875-125Mg [Augmentin 875-125] 1 each PO Q12HR 10 Days #20 tab 0 11/14/24 [Rx] Metoprolol Succinate (ER) [Toprol XL] 50 mg PO DAILY 30 Days #30 tab 11/14/24 [Rx] Nicotine 14Mg/24Hr Patch [Habitrol] 1 patch TRANSDERM DAILY 30 Days #30 patch 11/14/24 [Rx] Pantoprazole [Protonix] 40 mg PO AC-BRKFST 30 Days #30 tab 11/14/24 [Rx] amLODIPine [Norvasc] 10 mg PO DAILY 30 Days #30 tab 11/14/24 [Rx] Follow up Appointment(s)/Referral(s): None,Stated [REFERRING] - 1-2 days Patient Instructions/Handouts: Cholecystitis (ED), Syncope (DC), Pneumonia (DC)
[2024-11-14] MEDS ORDERED: AMOXIC-POT CLAV 875-125MG 1 EACH TAB PO SCH (21:00)
--- NOTE | 2024-11-15 15:25 | P.PN ---
Subjective Progress Note Date: 11/14/24 Principal diagnosis: Reason for follow-up is pneumonia and question of cholecystitis Patient is a 79-year-old female with a past medical history significant for diabetes mellitus hypertension hyperlipidemia, patient has been brought into the hospital after apparently patient did have a syncopal episode patient did have an episode of vomiting did have elevated white count there was concern for cholecystitis on the CT and possible pneumonia. On today's evaluation that is 11/14/2024,the patient denies any fever or any chills, patient is breathing comfortably on room air, the patient denies chest pain shortness of breath and cough is decreased in intensity, patient denies abdominal pain, no nausea vomiting or diarrhea. Patient white count is 5.83 creatinine 0.55 blood culture has been negative Objective - Vital Signs Vital signs: Vital Signs Temp 97.7 F 11/14/24 11:32 Pulse 63 11/14/24 13:10 Resp 20 11/14/24 11:32 BP 149/73 11/14/24 11:32 Pulse Ox 92 L 11/14/24 11:32 FiO2 Intake & Output 11/13/24 11/14/24 11/14/24 18:59 06:59 18:59 Intake Total 720 180 Output Total 0 Balance 720 0 180 Intake: Oral 720 180 Output: Urine 0 Stool 0 Other: Voiding Method Toilet Toilet Toilet Bedside Commode Bedside Commode Bedside Commode # Voids 2 1 1 - Exam GENERAL DESCRIPTION: An elderly female lying in bed in no distress RESPIRATORY SYSTEM: Unlabored breathing , decreased breath sounds at bases HEART: S1 S2 regular rate and rhythm , ABDOMEN: Soft , no tenderness EXTREMITIES: No edema feet - Labs CBC & Chem 7: 11/14/24 06:35 11/14/24 06:35 Labs: Abnormal Lab Results - Last 24 Hours (Table) 11/13/24 11/13/24 11/14/24 Range/Units 16:27 19:52 05:58 RBC (4.10-5.20) 10*6/uL Hgb (12.0-15.0) g/dL Hct (37.2-46.3) % Sodium (137-145) mmol/L Glucose (74-99) mg/dL POC Glucose (mg/dL) 173 H 192 H 160 H (70-110) mg/dL AST (14-36) U/L ALT (4-34) U/L Total Protein (6.3-8.2) g/dL Albumin (3.5-5.0) g/dL 11/14/24 11/14/24 11/14/24 Range/Units 06:35 06:35 11:10 RBC 3.66 L (4.10-5.20) 10*6/uL Hgb 10.7 L (12.0-15.0) g/dL Hct 32.0 L (37.2-46.3) % Sodium 136 L (137-145) mmol/L Glucose 155 H (74-99) mg/dL POC Glucose (mg/dL) 182 H (70-110) mg/dL AST 68 H (14-36) U/L ALT 155 H (4-34) U/L Total Protein 5.3 L (6.3-8.2) g/dL Albumin 3.0 L (3.5-5.0) g/dL Microbiology - Last 24 Hours (Table) 11/11/24 00:05 Blood Culture - Preliminary Blood Assessment and Plan (1) Acute cholecystitis Status: Acute Code(s): K81.0 - ACUTE CHOLECYSTITIS SNOMED Code(s): 22862557 (2) Sepsis Status: Acute Code(s): A41.9 - SEPSIS, UNSPECIFIED ORGANISM SNOMED Code(s): 79516548 Plan: 1patient presented to hospital with sepsis in this patient who did have fever tachycardia elevated white count source is likely acute cholecystitis with significant abnormality seen on the CT patient also have elevated liver enzymes and will need to cover for the enteric gram-negative to be the likely pathogen and there is also concern for possible aspiration pneumonia 2-patient did have a resolution of her fever white count normalized did have elevated procalcitonin 3patient has shown clinical improvement received adequate IV Zosyn will finish therapy with oral Augmentin on discharge, question concern answered Dictation was produced using [employer] dictation software. please excuse any grammatical, word or spelling errors. Time with Patient: Less than 30
== END 2024-11-14 18:38 | disposition home health service (06) | DRG 871 ==
LOC: EC 11:33 → 6NMEDSUR 14:56 → MERGE 14:57 → OBSVTOIN 14:57 → 6NMEDSUR 16:31 → 3SCARD 20:11
PROVIDERS: ADMIT Internal Medicine; ATTEND Internal Medicine
DX: A41.89 Other specified sepsis (principal); I21.A1 Myocardial infarction type 2; J69.0 Pneumonitis due to inhalation of food and vomit; E87.20 Acidosis, unspecified; K80.12 Calculus of gallbladder with acute and chronic cholecystitis without obstruction; I27.29 Other secondary pulmonary hypertension; J44.0 Chronic obstructive pulmonary disease with (acute) lower respiratory infection; E11.9 Type 2 diabetes mellitus without complications; I10 Essential (primary) hypertension; I08.2 Rheumatic disorders of both aortic and tricuspid valves; Z11.52 Encounter for screening for COVID-19; F40.240 Claustrophobia; M19.90 Unspecified osteoarthritis, unspecified site; E78.5 Hyperlipidemia, unspecified; E86.1 Hypovolemia; K52.9 Noninfective gastroenteritis and colitis, unspecified; E27.8 Other specified disorders of adrenal gland; Z79.82 Long term (current) use of aspirin; Z79.84 Long term (current) use of oral hypoglycemic drugs; Z79.899 Other long term (current) drug therapy; Z87.891 Personal history of nicotine dependence; Z88.8 Allergy status to other drugs, medicaments and biological substances
CPT/HCPCS: 36415; 70450; 71046; 71275; 74176; 76705; 80048; 80053; 81001; 83036; 83605; 83735; 84145; 84484; 85025; 85379; 85610; 85730; 87040; 87449; 87636; 93005; 93306; 93970; 96361; 96374; 99285